=== PATIENT | male | born 1940 | race Caucasian/White ===

== ENCOUNTER → 2018-05-03 03:52 | Outpatient (CLI) | payer BC, SELFPAY ==
--- NOTE | 2018-05-25 12:44 | ZIOP_ITS ---
ZIO PATCH DATE OF DICTATION May 25, [address] 14 days, May 03-2017. Baseline rhythm sinus. Rare single PAC. 13 burst SVT, longest lasting 15.5 seconds, fastest 190 beats per minute. No atrial fibrillation identified. Rare single PVC. Rare couplet. No VT. No bradycardia/block. 1 triggered event during sinus rhythm, 50 beats per minute. SYMPTOMS 1 symptomatic episode (fluttering/racing) noted during sinus rhythm 47 beats per minute. Average heart rate sinus, 61 beats per minute, range 40-114 beats per minute. Gregg Carbajal M.D. JEREMIAS/nasir T 05/25/2018
== END ==
PROVIDERS: PCP Family Medicine; Visit Provider Psychiatry & Neurology Neurology
DX: I49.1 Atrial premature depolarization (principal); I63.411 Cerebral infarction due to embolism of right middle cerebral artery; I47.1 Supraventricular tachycardia
CPT/HCPCS: 93225

== ENCOUNTER 2018-05-05 04:26 | Emergency (ER) | payer BC, SELFPAY ==
[2018-05-05 04:33] VITALS: BP 143/71; PULSE 57; RESP 20; TEMP 36.6; O2SAT 96
--- NOTE | 2018-05-05 04:42 | ED.GENADUL ---
Disposition Clinical Impression: Strain of left wrist Disposition: HOME Condition: Good Instructions: Muscle Strain (ED) Additional Instructions: follow up with your primary care provider within a week you can take 1000mg tylenol every 6 hours for pain. If you need additional pain relief you can take 600mg ibuprofen every 6 hours for pain as needed Medical Decision Making - Radiology Data Radiology results: report reviewed, image reviewed - Medical Decision Making pt here with left wrist pain after doing significant amount of manual labor per pt. He has findings most consistent with a strain, will xray to eval for possible fracture though did not suffer any significant trauma. Has normal pulses and sensation so doubt arterial occlusion or dissection no acute findings on xray. Will place in universal wrist splint and advised f/u with pcp. Still has normal neurovascular exam - Differential Diagnosis strain, sprain, overuse History of Present Illness - General Chief complaint: Orthopedic Stated complaint: LEFT ARM PROB Time Seen by Provider: 05/05/18 04:28 Source: patient Mode of arrival: ambulatory Limitations: no limitations - History of Present Illness Initial comments: 78 yo male with recent cva last month, hld, who comes in with left wrist pain. HE states he did a lot of manual labor yesterday and had wrist pain in the left wrist since 6pm last night. He denies trauma, fevers or rash. He is unable to flex or extend the left wrist due to anterior and posterior wrist pain. HE does have mild swelling of the left wrist without warmth or redness, sensation is intact, 2+ radial and ulnar pulses. No pain in the hand MD Complaint: left wrist pain Onset/Timin -: days(s) Location: upper extremity Radiation: non-radiation Severity scale (1-10): 7 Quality: aching Consistency: constant Improves with: rest Worsens with: movement Associated Symptoms: denies other symptoms Treatments Prior to Arrival: none - Related Data Atorvastatin [Lipitor] 80 mg PO QPM #30 tab 03/29/18 Clopidogrel [Plavix] 75 mg PO DAILY #30 tab 03/29/18 Triamterene/Hydrochlorothiazid [Triamterene-Hctz 37.5-25 mg Tb] 1 tab-cap PO DAILY tab-cap 04/27/18 Allergies Allergy/AdvReac Type Severity Reaction Status Date / Time No Known Allergies Allergy Unverified 05/05/18 04:36 Review of Systems Constitutional: denies: fever Respiratory: denies: shortness of breath Cardiovascular: denies: chest pain Gastrointestinal: denies: abdominal pain, nausea, vomiting Musculoskeletal: denies: back pain Skin: denies: rash Neurological: denies: headache Comment: All other systems reviewed and negative Past Medical History - Past Medical History Medical history: CVA/TIA, hypertension - Social History Alcohol use: occasionally Drug use: none General Exam - General Limitations: no limitations General appearance: alert, in no apparent distress - Head Head exam: Present: atraumatic - Eye Eye exam: Present: normal apperance - ENT ENT exam: Present: mucous membranes moist - Neck Neck exam: Present: normal inspection - Respiratory Respiratory exam: Absent: respiratory distress - Cardiovascular Cardiovascular Exam: Present: regular rate - Extremities Exam Extremities exam: Present: normal capillary refill, other (see hpi). Absent: pedal edema, calf tenderness - Neurological Exam Neurological exam: Present: alert, oriented X3, CN II-XII intact, normal gait. Absent: motor sensory deficit - Psychiatric Psychiatric exam: Present: normal affect - Skin Skin exam: Present: warm Course Vital Signs - 24 hr 05/05/18 04:33 Temperature 97.9 F Pulse 57 L Respiratory 20 Rate Blood Pressure 143/71 Pulse Oximetry 96
--- NOTE | 2018-05-05 04:50 | DI.REPORT_ITS ---
SYMPTOM/DIAGNOSIS: PAIN IN WRIST LEFT WRIST: There is no evidence of an acute fracture or dislocation.
[2018-05-05] MEDS: Acetaminophen 500 MG TAB 1000 MG PO (04:51)
--- NOTE | 2018-05-05 05:58 | DI.VRAD_ITS ---
EXAM: XR Left Wrist Complete, 3 or More Views CLINICAL HISTORY: 78 years old, male; Pain; Wrist; Left; Patient HX: Wrist pain going up arm TECHNIQUE: Frontal, lateral and oblique views of the left wrist. COMPARISON: No relevant prior studies available. FINDINGS: Bones/joints: Unremarkable. No acute fracture. No dislocation. Soft tissues: There is irregularity of the distal ulna with overlying soft tissue swelling, though this appears chronic. No radiopaque foreign body. Vasculature: Moderate vascular calcifications. IMPRESSION: No acute findings. Irregularity of the distal ulna appears chronic. No visualized fractures. Dictated and Authenticated by: Murtaza Hernandez MD. Ordering:OSORIO PALACIO MD
[2018-05-05] MEDS: Ibuprofen 600 MG TAB PO (06:06)
[2018-05-05 06:07] VITALS: BP 143/71; PULSE 57; RESP 20; TEMP 36.6; O2SAT 96
== END 2018-05-05 06:03 | disposition home or self-care (01) ==
PROVIDERS: Emergency Provider Emergency Medicine; PCP Family Medicine
DX: S66.912A Strain of unspecified muscle, fascia and tendon at wrist and hand level, left hand, initial encounter (principal); X50.0XXA Overexertion from strenuous movement or load, initial encounter; I10 Essential (primary) hypertension
CPT/HCPCS: 29125; 99283; 73110; L3908

== ENCOUNTER 2020-07-12 19:27 | Emergency (ER) | payer MEDICARE, SELFPAY ==
--- NOTE | 2020-07-12 19:32 | W.ED.GENAD ---
Discharge Plan Disposition Patient Disposition: HOME Condition: Stable Discharge Details Clinical Impression: Visual disturbance, Acute hyponatremia Primary Care Provider: Bear Chavez ED Provider: Calli Garcia Home Meds and New Rx's Prescriptions: Continued fluorouracil 5 % cream 1 applic TP BID RF: 0 triamterene-hydrochlorothiazid 1 EACH tablet 1 tab-cap PO DAILY RF: 0 atorvastatin [Lipitor] 40 MG tablet 80 mg PO QPM Qty: 30 RF: 0 clopidogrel [Plavix] 75 MG tablet 75 mg PO DAILY Qty: 30 RF: 0 Discharge Instructions Instructions: Hyponatremia (ED) Additional Instructions: Your exam at this time is reassuring as are your labs and imaging. I would like for you to follow-up closely with your network desktop support specialist, please call on Wednesday to schedule follow-up appointment. If you are unable to be seen by them on Wednesday, please reach out to us once again. Your sodium was slightly low here today. Please increase your salt intake slightly. If you develop any fever/chills, eye pain, visual deficit, weakness, sensation changes or other new/worsening symptoms please seek care urgently once again Referrals: Bear Chavez [Primary Care Provider] - Adriano Brown [ NON-[facility] STAFF PHYSICIAN] - Discharge Data Discharge Date/Time-TO BE ENTERED AT DEPARTURE: 07/12/20 23:25 Medical Decision Making Patient is a pleasant 80-year-old male presents today, brought in by son, with chief complaint of glittering arc in the upper lateral right eye x 10 minutes. He reports that he did cover both eyes to be able to further determine the location better describe this. He states that when he cover the left eye is 1 is is most apparent but by covering the right eye it seems completely resolved and he did not see this clearing area. Denies any eye pain. No trauma. No fevers or chills. Denies any weakness, sensory deficit, or persistent symptoms. Denies any recurrence of symptoms. Patient does wear glasses for distance vision and is followed by an network desktop support specialist Luis Antonio. On exam, patient's resting comfortably. He appears nontoxic. Normal neurologic exam. Vision is intact in all underwood. Extraoculars are intact. Visual acuity is 20/50 bilaterally. Pupils are equal round and reactive. Difficult time visualizing entire retina what was visualized appears without acute abnormality. I ultrasound was performed by myself with the assistance of Dr. Ceja, I do not appreciate any evidence of retinal detachment. Patient does have a history of stroke. This is less likely based on the location additional symptom rather than negative symptoms. Labs reviewed without significant abnormality. CT CTA has been obtained. IMPRESSION: 1. No acute intracranial findings on initial unenhanced images. 2. CTA head within normal limits. No large vessel occlusion. IMPRESSION: 1. Mixed plaque within the proximal right internal carotid artery producing 35% stenosis. 2. No arterial occlusion or arterial dissection. Patient had known stenosis. Everything is reported to the to a lesser degree at this time than previously. I did discuss his findings with the patient. I did discuss his case with Dr. Cuello. Again, as this patient was having additive symptoms rather than negative symptoms and the l focal abnormality being in the 1 quadrant 1 eye, has me less concerned for intracranial etiology such as stroke. Symptoms are more consistent with something eye related such as skin lesions noted prior to retinal detachment. As he is not been having any symptoms here, had no negative symptoms and I feel that emergent transfer for ophthalmologic exam is appropriate. Rather, I encourage close follow-up with his network desktop support specialist beginning of next week. He does have an network desktop support specialist that he sees routinely. Strict return precautions were discussed. Patient lives with his , child is close, is able to return with any new or worsening symptoms. All this patient is a concerns were addressed and he is in agreement this plan. HPI General Mode of arrival: ambulatory. Date/Time Provider Initiated Documentation: 07/12/20 19:32. Limitations to Documentation: no limitations. Information obtained by: patient, family (son), RN notes reviewed and old records reviewed. HPI Narrative: Patient is a pleasant 80-year-old male presented to complaint of sparkling arc in the right upper outer quadrant of the right eye. He reports this began present 1 hour prior to arrival. States that this lasted for approximately 10 minutes. Came on after he had been for second computer and in writing a letter. Reports that he was able to cover the left eye and see this more defined. When he covered the right completely subsided. He reports approximately 10 minutes after the onset it spontaneously subsided. He denied any visual changes otherwise. Denies any eye pain. No headache. No weakness. Denies any fevers or chills. No trauma. Has not experienced this historically. Past medical history significant for right carotid stenosis, CVA, hypertension, hyperlipidemia Related Data Home Medications Medication Instructions Recorded Confirmed atorvastatin [Lipitor] 80 mg PO QPM #30 tab 03/29/18 07/12/20 clopidogrel [Plavix] 75 mg PO DAILY #30 tab 03/29/18 07/12/20 triamterene-hydrochlorothiazid 1 tab-cap PO DAILY tab-cap 04/27/18 07/12/20 fluorouracil 5 % topical cream 1 applic TP BID 06/28/18 07/12/20 Previous Rx's Medication Instructions Recorded atorvastatin [Lipitor] 80 mg PO QPM #30 tab 03/29/18 clopidogrel [Plavix] 75 mg PO DAILY #30 tab 03/29/18 Allergies Allergy/AdvReac Type Severity Reaction Status Date / Time No Known Allergies Allergy Unverified 06/28/18 08:24 Review of Systems Constitutional Constitutional: Reports as per HPI, Denies chills, Denies fatigue, Denies fever(s), Denies frequent falls, Denies headache(s), Denies snoring and Denies weakness Eyes Eyes: Reports as per HPI, Denies blurry vision, Denies change in vision, Reports other visual disturbances (Right lateral upper car of glittering light) and Denies photophobia ENT Ears, Nose, Mouth, and Throat: Denies vertigo, Denies headache(s) and Denies neck pain Cardiovascular Cardiovascular: Reports as per HPI, Denies chest pain, Denies lightheadedness, Denies radiating jaw, neck or arm pain, Denies dyspnea and Denies dyspnea on exertion Respiratory Respiratory: Reports as per HPI, Denies chest congestion, Denies cough, Denies dyspnea, Denies dyspnea on exertion, Denies snoring, Denies stridor and Denies wheezing Gastrointestinal Gastrointestinal: Reports as per HPI, Denies abdominal pain, Denies change in bowel habits, Denies nausea and Denies vomiting Genitourinary Genitourinary: Reports system reviewed and no additional complaints, except as documented (denies change in urinary habits) Musculoskeletal Musculoskeletal: Reports as per HPI, Denies back pain, Denies myalgias, Denies muscle cramps, Denies neck pain and Denies numbness Integumentary/Breasts Skin/Breast: Reports as per HPI and Denies rash Neurologic Neurologic: Reports as per HPI, Denies abnormal movements, Denies abnormal speech, Denies behavioral changes, Denies confusion, Denies vertigo, Denies frequent falls, Denies headache(s), Denies localized weakness, Denies numbness, Denies sensory deficit and Denies weakness Psychiatric Psychiatric: Denies behavioral changes and Denies confusion Endocrine Endocrine: Denies fatigue Allergic/Immunologic Allergic/Immunologic: Denies wheezing [facility] Medical History (Updated 07/12/20 @ 23:17 by FERNANDO Santana) Carotid stenosis, right (04/27/18) Cerebrovascular accident (CVA) due to embolism of right middle cerebral artery (04/27/18) Hyperlipidemia Hypertension Pre-diabetes Surgical History History of tonsillectomy Inguinal hernia of left side without obstruction or gangrene Family History Father Alcohol abuse Stroke Social History Smoking/Tobacco Use Status: Never Alcohol Intake: current Alcohol Intake frequency: a few times a month Substance use type: does not use Housing: house Number of Children: 2 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 Do you feel safe in your relationship?: Yes Exam Const General: cooperative, healthy appearing, uncomfortable, no acute distress, well developed and well groomed Nutritional Appearance: average body habitus and well nourished Orientation: alert, awake and oriented x3 HENMT Head: normal to inspection, no palpable skull fracture, normocephalic and atraumatic Ears: hearing grossly normal bilaterally, external ears normal and TM's normal bilaterally General nose exam: external nose normal Mouth: oral mucosae normal and moist mucous membranes Throat: posterior oropharynx normal Eyes General: appearance normal, both eyes and all related structures Alignment and Position: alignment normal Periorbital: periorbital findings normal Eyelids: eyelids normal Sclera: sclerae normal Cornea: corneas normal Pupils: PERRL EOM: EOM intact bilaterally Neck Neck: normal visual inspection, full ROM, no lymphadenopathy and no meningeal signs Resp Effort & Inspection: normal respiratory effort, able to speak in complete sentences and no respiratory distress Auscultation: clear to auscultation bilaterally, no rales, no rhonchi and no wheezes Cardio Rate: regular rate Rhythm: regular rhythm Heart Sounds: S1 normal and S2 normal GI Inspection: normal to inspection and non-distended Palpation: soft, no hepatosplenomegaly, not firm, no guarding, not rigid and nontender Percussion: normal to percussion Auscultation: normal bowel sounds Back/Spine/Pelvis Cervical Spine: normal cervical lordosis and cervical ROM normal Skin General skin exam: no rashes or lesions noted Neuro General: patient alert, patient awake and patient oriented x3 Cranial Nerves: CN's II-XI intact bilaterally Cognition: normal cognition Speech: speech normal Gait: normal gait Motor: muscle tone normal throughout, strength 5/5 throughout, no pronator drift, no movement abnormalities noted and no fasciculations Sensory Exam: no sensory deficits noted Coordination: [id number] test normal and [id number] test normal Extrem General: normal to inspection, capillary refill normal, no pedal edema and no calf tenderness Psych Appearance: grossly normal and well kempt Mental Status: mental status grossly normal Speech and Movement: speech and movement normal
[2020-07-12 19:34] VITALS: BP 154/75; PULSE 51; RESP 20; TEMP 36.5; O2SAT 98
--- NOTE | 2020-07-12 20:00 | DI.CT_ITS ---
EXAM: CT BRAIN NECK CTA CLINICAL HISTORY: visual changes, right upper outer field. TECHNIQUE: Imaging Protocol: Axial CT angiography was performed with multi-slice acquisition and mu lti-planar and/or 3D reconstructions. CONTRAST MATERIAL: Intravenous: Omnipaque 350 Contrast volume:85 COMPARISON: CT CTA BRAIN AND NECK from 03/27/2018 FINDINGS: CT Head W/O: Ventricles and Extra axial spaces: Normal in size and morphology for the patient's age. Hemorrhage: None. Cerebral parenchyma: Mild patchy white matter changes of microvascular disease. No acute infarct is visible. Midline shift: None. Brainstem/Cerebellum: Normal. Calvarium: Normal. Visualized Paranasal sinuses/Mastoids: Clear. Soft Tissues: Unremarkable. CTA Brain W: Internal Carotid Arteries: Petrous: Normal. Cavernous: Normal. Cerebral: Normal. Middle Cerebral Arteries: Right: No aneurysm, occlusion or significant stenosis. Left: No aneurysm, occlusion or significant stenosis. Anterior Cerebral Arteries: Right: No aneurysm, occlusion or significant stenosis. Left: No aneurysm, occlusion or significant stenosis. Posterior cerebral Arteries: Right: No aneurysm, occlusion or significant stenosis. Left: No aneurysm, occlusion or significant stenosis. Vertebral Arteries: Right: No aneurysm, occlusion or significant stenosis. Left: No aneurysm, occlusion or significant stenosis. Basilar Artery: No aneurysm, occlusion or significant stenosis. CTA Neck W: Common Carotid: Right: Calcific plaque is noted in the common carotid bulb. No significant stenosis. Left: Calcific plaque is noted in the common carotid bulb. No significant stenosis. External Carotid: Right: No aneurysm, occlusion or significant stenosis. Left: No aneurysm, occlusion or significant stenosis. Internal Carotid: Right: Mild amount of mixed calcified and noncalcified plaque in the proximal right internal carotid artery producing mild stenosis. No aneurysm, occlusion. Left: Minimal calcific plaque. No aneurysm, occlusion or significant stenosis. Vertebral Artery: Right: No aneurysm, occlusion or significant stenosis. Left: No aneurysm, occlusion or significant stenosis. Lung Apices: Normal. Bones: Degenerative disc changes. Soft Tissues: Normal. IMPRESSION: 1. Normal CTA examination of the [place]. 2. Unremarkable noncontrast CT Head. 3. Mild plaque in the common carotid bulbs and proximal internal and carotid arteries. No significan t stenosis. RADIATION DOSE DELIVERED: 1,335.35mGy.cm Total DLP DATA REPOSITORY: All CT scans at this facility are submitted to the National Radiology Data Registry (NRDR) Dose Index Registry (DIR) with the [employer] (ACR). RADIATION OPTIMIZATION: All CT scans at this facility use at least one of these dose optimization te chniques: automated exposure control; mA and/or kV adjustment per patient size (includes targeted exa ms where dose is matched to clinical indication); or iterative reconstruction.
--- NOTE | 2020-07-12 20:15 | RT.EKG_ITS ---
APPROVED REPORT Exam: Resting ECG Patient Location: E HR:49 bpm ECG Measurements Heart Rate 49 AXIS AR 201 P 73 QRSd 93 QRS 49 QT 455 T 268 QTc 410 Conclusion Sinus bradycardia...rate< 60 Borderline T abnormalities, diffuse leads...T flat/neg I have reviewed and interpreted ECG and agree with software generated interpretation. No STEMI
[2020-07-12] MEDS: Lactated Ringers 1,000 ML 500 ML IV (20:40)
[2020-07-12 21:17] LABS: Abs Immature Grans 0.03 10^3/uL (0.0-0.06); Absolute Basophil Count 0.06 10^3/uL (0.0-0.2); Absolute Eosinophil Count 0.26 10^3/uL (0.0-0.7); Absolute Lymphocyte Count 1.65 10^3/uL (1.2-3.4); Absolute Monocyte Count 0.82 10^3/uL (0.1-0.8); Absolute Neutrophil Count 4.52 10^3/uL (1.2-6.7); Basophils % 0.8; Eosinophils % 3.5; HCT 44.9 % (40.0-50.0); Immature Grans % 0.4; Lymphocytes % 22.5; MCHC 33.4 % (32.0-36.0); MCV 89.8 fL (80-95); MPV 10.5 fL (8.0-11.0); Monocytes % 11.2; Neutrophils % 61.6; Nucleated RBC 0 %; Platelet Count 187 10^3/uL (130-400); RDW 13.3 % (11.8-14.1); WBC 7.34 10^3/uL (4.4-10.8)
[2020-07-12 21:30] LABS: PTT Activated 26.1 sec (21.0-31.4); Prothrombin Time 10.5 sec (9.3-11.0)
[2020-07-12 21:31] LABS: ALT 34 U/L (16-63); AST 31 U/L (15-37); Alkaline Phosphatase 101 U/L (46-116); Anion Gap 3.6 mmol/L (3-11); BUN 27 mg/dL (7-18); Bilirubin, Total 0.5 mg/dL (0.2-1.0); CO2 28.4 mmol/L (21.0-32.0); CREATININE 0.87 mg/dL (0.70-1.30); Chloride 99 mmol/L (98-107); Glucose 88 mg/dL (74-106); Potassium 3.6 mmol/L (3.5-5.1); Sodium 131 mmol/L (136-145); Total Protein 7.2 g/dL (6.4-8.2)
[2020-07-12] MEDS: Normal Saline Flush 10 ML SYR IVP (21:42)
[2020-07-12] MEDS: Normal Saline - Diluent 50 ML VIAL IV (21:43)
[2020-07-12] MEDS: Omnipaque 350 MG/ML 100 ML BTL IJ (21:43)
--- NOTE | 2020-07-12 22:56 | DI.VRAD_ITS ---
PROCEDURE INFORMATION: Exam: CT Angiography Head With Contrast Exam date and time: 07/12/2020 9:58 PM Age: 80 years old Clinical indication: Visual changes, right upper outter field TECHNIQUE: Imaging protocol: Computed tomography angiography of the head with intravenous contrast. 3D rendering (Not supervised by radiologist): MIP and/or 3D reconstructed images were created by the technologist. Contrast material: OMNIPAQUE 350; Contrast volume: 85 ml; Contrast route: INTRAVENOUS (IV); COMPARISON: CTA BRAIN AND NECK 03/27/2018 2:42 PM FINDINGS: ANTERIOR CIRCULATION: Right internal carotid artery: Unremarkable. Intracranial segment is patent with no significant stenosis. No aneurysm. Right middle cerebral artery: Unremarkable. No occlusion or significant stenosis. No aneurysm. Right anterior cerebral artery: Unremarkable. No occlusion or significant stenosis. No aneurysm. Left internal carotid artery: Arterial calcification. Left middle cerebral artery: Unremarkable. No occlusion or significant stenosis. No aneurysm. Left anterior cerebral artery: Unremarkable. No occlusion or significant stenosis. No aneurysm. POSTERIOR CIRCULATION: Right vertebral artery: Unremarkable. No occlusion or significant stenosis. No aneurysm. Left vertebral artery: Unremarkable. No occlusion or significant stenosis. No aneurysm. Basilar artery: Unremarkable. No occlusion or significant stenosis. No aneurysm. Right posterior cerebral artery: Unremarkable. No occlusion or significant stenosis. No aneurysm. Left posterior cerebral artery: origin of the left posterior cerebral artery. No occlusion or significant stenosis. No aneurysm. Brain: A few scattered small areas of decreased density in the periventricular white matter which are likely secondary to chronic ischemia from microvascular change. No acute intracranial hemorrhage. Diffuse cerebral atrophy. Cerebral ventricles: Ventricular prominence in this patient with diffuse cerebral atrophy. Normal benign rosalio cisterna magna. Mastoid air cells: No mastoiditis. Bones/joints: Unremarkable. No acute fracture. Soft tissues: No significant disease of the paranasal sinuses. IMPRESSION: 1. No acute intracranial findings on initial unenhanced images. 2. CTA head within normal limits. No large vessel occlusion. PROCEDURE INFORMATION: Exam: CT Angiography Neck With Contrast Exam date and time: 07/12/2020 9:58 PM Age: 80 years old Clinical indication: Visual changes, right upper outter field TECHNIQUE: Imaging protocol: Computed tomography angiography of the neck with intravenous contrast. 3D rendering (Not supervised by radiologist): MIP and/or 3D reconstructed images were created by the technologist. Contrast material: OMNIPAQUE 350; Contrast volume: 85 ml; Contrast route: INTRAVENOUS (IV); COMPARISON: CTA BRAIN AND NECK 03/27/2018 2:42 PM FINDINGS: Right common carotid artery: Calcific plaque within the right carotid bulb region. No stenosis. No dissection or occlusion. Right internal carotid artery: Mixed plaque within the proximal right internal carotid artery producing 35% stenosis. Right external carotid artery: No occlusion or stenosis of the origin. Right vertebral artery: No stenosis. No dissection or occlusion. Left common carotid artery: Calcific plaque within the left carotid bulb region. No stenosis. No dissection or occlusion. Left internal carotid artery: Small amount of calcific plaque within the proximal left internal carotid artery without significant stenosis. Left external carotid artery: No occlusion or stenosis of the origin. Left vertebral artery: No stenosis. No dissection or occlusion. Bones/joints: Cervical spine degenerative changes. Soft tissues: Normal. No significant soft tissue swelling. IMPRESSION: 1. Mixed plaque within the proximal right internal carotid artery producing 35% stenosis. 2. No arterial occlusion or arterial dissection. REFERENCES: NASCET CRITERIA. The degree of internal carotid artery stenosis is based on NASCET criteria. Normal is no stenosis. Mild is less than 50% stenosis. Moderate is 50-69% stenosis. Severe is 70% to 99% stenosis. Total occlusion is no detectable patent lumen. Dictated and Authenticated by: Isai Resendiz MD. Ordering:VIBHA Mccurdy MD
--- NOTE | 2020-07-12 23:34 | NUR.NOTE ---
Patient to be followed up with by Care management Wednesday to make sure an appointment is set up with his rejogger. referral faxed to care management @ [phone] 07/12/2020 libl Nursing Note:
== END 2020-07-12 23:25 | disposition home or self-care (01) ==
PROVIDERS: Emergency Provider Physician Assistant; PCP Family Medicine
DX: H53.451 Other localized visual field defect, right eye (principal); E87.1 Hypo-osmolality and hyponatremia; I10 Essential (primary) hypertension
CPT/HCPCS: 70496; 70498; 80053; 93005; 96360; 96361; 99285; 85025; 85610; 85730; 93010; 99284; J3490

== ENCOUNTER 2021-06-06 11:17 | Emergency (ER) | payer MEDICARE, SELFPAY ==
[2021-06-06] VITALS (14 sets, daily range): BP systolic 129–164; BP diastolic 71–121; PULSE 45–51; RESP 10–21; TEMP 36.4–36.5; O2SAT 96–99
--- NOTE | 2021-06-06 11:15 | DI.RAD_ITS ---
Exam(s) XR CHEST 2V PA LATERAL EXAM: XR CHEST 2V PA LATERAL CLINICAL HISTORY: CP TECHNIQUE: 2D digital imaging was performed. COMPARISON: No exams were available for comparison FINDINGS: MEDIASTINUM: Normal. HEART: Normal. PULMONARY VASCULATURE: Normal. LUNGS: Clear. PLEURAL SPACE: No pleural effusion or pneumothorax. BONE:Unremarkable for age. IMPRESSION: No acute abnormality. DATA REPOSITORY: RADIATION DOSE DELIVERED:
--- NOTE | 2021-06-06 11:15 | RT.EKG_ITS ---
APPROVED REPORT Exam: Resting ECG Reason for Exam: CP Patient Location: E HR:48 bpm ECG Measurements Heart Rate 48 AXIS MA 192 P 74 QRSd 96 QRS 59 QT 472 T 77 QTc 421 Conclusion Sinus bradycardia Nonspecific t wave changes not significantly changed vs 07/12/20
--- NOTE | 2021-06-06 11:33 | W.ED.GENAD ---
Discharge Plan Disposition Patient Disposition: HOME Condition: Stable Discharge Details Clinical Impression: Chest pain Primary Care Provider: Bear Chavez ED Provider: Calli Garcia Home Meds and New Rx's Prescriptions: New omeprazole 20 mg capsule,delayed release(DR/EC) 20 mg PO DAILY Qty: 20 RF: 0 Continued triamterene-hydrochlorothiazid 1 EACH tablet 1 tab-cap PO DAILY RF: 0 atorvastatin [Lipitor] 40 MG tablet 80 mg PO QPM Qty: 30 RF: 0 clopidogrel [Plavix] 75 MG tablet 75 mg PO DAILY Qty: 30 RF: 0 Discharge Instructions Instructions: Chest Pain (ED) Additional Instructions: Your imaging and labs are reassuring here today. Your exam and history is most consistent with esophageal source such as acid reflux. As discussed, please try to reduce coffee intake as well as other acidic foods. Encourage water intake. May use omeprazole as prescribed. Please follow-up with your primary care in the next 1 to 2 weeks for reevaluation. If you develop exertional chest pain, shortness of breath, difficulty breathing or other new/worsening please seek care urgently once again Referrals: Bear Chavez [Primary Care Provider] - Discharge Data Discharge Date/Time-TO BE ENTERED AT DEPARTURE: 06/06/21 13:32 Medical Decision Making Patient is a pleasant 81-year-old male presenting today with chief complaint of chest discomfort. He reports that chest pain has been present x3 days. Has not noted any exacerbating factors. It is not exertional in length. However, he does report that it does feel slightly improved when drinking cold water. Denies worsening with eating. No change in appetite. Denies any shortness of breath, diaphoresis. No recent travel. Denies any respiratory symptoms. Describes the discomfort as a a fullness. He denies any history of acid reflux. 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 On exam, patient appears nontoxic. Vital signs are stable. Pulse is typically in the 40s and 50s. Lungs are clear, normal cardiac exam, abdomen benign. Considered ACS. However, as there is no exertional component, I do find this less likely. Will obtain EKG and troponin. History exam is not consistent with pulmonary embolism. No radiation of pain or findings to suggest dissection. Also consider potential esophageal source particularly as this is improved with cold water. Will give GI cocktail. Will obtain chest x-ray and baseline labs. Discussed this plan with the patient his agreement. Labs reviewed. No leukocytosis. Stable H&H. No abnormalities on CMP. Troponin within normal limits. Chest x-ray reviewed by radiologist: FINDINGS: MEDIASTINUM: Normal. HEART: Normal. PULMONARY VASCULATURE: Normal. LUNGS: Clear. PLEURAL SPACE: No pleural effusion or pneumothorax. BONE:Unremarkable for age. IMPRESSION: No acute abnormality. Discussed this finding with the patient. After GI cocktail, symptoms are completely resolved. is now at bedside and adds that he has been burping frequently which is atypical. He has had an increase in coffee intake as well as other acidic foods. I discussed with him that this is likely the source of his discomfort. He will cut back on his coffee. We did discuss beginning omeprazole. She advised she would like to try this with dietary restrictions but would consider medications if this is unsuccessful. Will scribed omeprazole in the event that he would like to begin this. Strict return precautions were discussed. I did encourage that he follow-up with primary care in the next 1 to 2 weeks for reevaluation. Also parents were addressed and he is in agreement this plan. HPI General Mode of arrival: ambulatory. Date/Time Provider Initiated Documentation: 06/06/21 11:18. Limitations to Documentation: no limitations. Information obtained by: patient and RN notes reviewed. History of Present Illness 81 year old M presents to the emergency department with the chief complaint of chest pain, described as mild, with intensity rated at 1. Quality is described as other (fullness), and is localized to the chest. Patient reports no radiation. Patient started experiencing this day(s) (3) and it has been constant. other things that improve symptom(s), (drinking cold water) No exacerbating factors reported . Patient notes no other symptoms.. Patient did receive the following treatments prior to arrival, none Related Data Home Medications Medication Instructions Recorded Confirmed atorvastatin [Lipitor] 80 mg PO QPM #30 tab 03/29/18 06/06/21 clopidogrel [Plavix] 75 mg PO DAILY #30 tab 03/29/18 06/06/21 triamterene-hydrochlorothiazid 1 tab-cap PO DAILY tab-cap 04/27/18 06/06/21 omeprazole 20 mg PO DAILY #20 cap 06/06/21 Previous Rx's Medication Instructions Recorded atorvastatin [Lipitor] 80 mg PO QPM #30 tab 03/29/18 clopidogrel [Plavix] 75 mg PO DAILY #30 tab 03/29/18 omeprazole 20 mg PO DAILY #20 cap 06/06/21 Allergies Allergy/AdvReac Type Severity Reaction Status Date / Time No Known Allergies Allergy Unverified 06/06/21 11:28 General Stated Complaint: Chest Pain ARELIS: 3 Review of Systems Constitutional Constitutional: Reports as per HPI, Denies chills, Denies fever(s), Denies headache(s), Denies lethargy and Denies poor appetite ENT Ears, Nose, Mouth, and Throat: Denies dizziness and Denies headache(s) Cardiovascular Cardiovascular: Reports as per HPI, Reports chest pain, Denies leg edema, Denies radiating jaw, neck or arm pain, Denies palpitations, Denies dyspnea and Denies dyspnea on exertion Respiratory Respiratory: Reports as per HPI, Denies chest congestion, Denies cough, Denies pain on inspiration, Denies pain with cough, Denies dyspnea, Denies dyspnea on exertion and Denies wheezing Gastrointestinal Gastrointestinal: Reports as per HPI, Denies abdominal pain, Denies diarrhea, Denies nausea and Denies vomiting Musculoskeletal Musculoskeletal: Reports as per HPI and Denies back pain Integumentary/Breasts Skin/Breast: Reports as per HPI and Denies rash Neurologic Neurologic: Reports as per HPI, Denies dizziness and Denies headache(s) Endocrine Endocrine: Denies palpitations Allergic/Immunologic Allergic/Immunologic: Denies wheezing [facility] Medical History (Updated 06/06/21 @ 13:16 by FERNANDO Santana) Carotid stenosis, right (04/27/18) Cerebrovascular accident (CVA) due to embolism of right middle cerebral artery (04/27/18) Hyperlipidemia Hypertension Pre-diabetes Surgical History History of tonsillectomy Inguinal hernia of left side without obstruction or gangrene Family History Father Alcohol abuse Stroke Social History Smoking/Tobacco Use Status: Never Smoking risk assessment performed?: Yes Alcohol Intake: current Alcohol Intake frequency: a few times a month Substance use type: does not use Housing: house Number of Children: 2 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 Do you feel safe in your relationship?: Yes Exam Const General: cooperative, healthy appearing, comfortable, no acute distress and well developed Nutritional Appearance: average body habitus and well nourished Orientation: alert, awake and oriented x3 HENMT Head: normal to inspection Ears: hearing grossly normal bilaterally Mouth: moist mucous membranes Chest Chest: normal inspection of the chest, normal palpation of entire chest wall and no crepitus Resp Effort & Inspection: normal respiratory effort, able to speak in complete sentences and no respiratory distress Auscultation: clear to auscultation bilaterally, no rales, no rhonchi and no wheezes Cardio Rate: regular rate Rhythm: regular rhythm Heart Sounds: S1 normal and S2 normal GI Inspection: normal to inspection, no edema and non-distended Palpation: soft, no hepatosplenomegaly, not firm, no guarding, not rigid and nontender Auscultation: normal bowel sounds Skin General skin exam: no rashes or lesions noted Trauma: no lacerations or abrasions Neuro General: patient alert, patient awake and patient oriented x3 Cognition: normal cognition Speech: speech normal Gait: normal gait Extrem General: normal to inspection, capillary refill normal, no pedal edema, no calf tenderness and normal gait Psych Appearance: grossly normal and well kempt Mental Status: mental status grossly normal Speech and Movement: speech and movement normal Course Vital Signs Vital signs: Vital Signs Temperature 36.4 C L 06/06/21 11:24 Pulse 50 L 06/06/21 11:24 Respiratory Rate 14 06/06/21 11:24 Blood Pressure 158/71 H 06/06/21 11:24 Pulse Oximetry 97 06/06/21 11:24 Temperature 36.4 C L 06/06/21 11:24 Temperature Source Skin 06/06/21 11:24 Pulse 50 L 06/06/21 11:24 Respiratory Rate 14 06/06/21 11:24 Respiratory Effort 06/06/21 11:29 Blood Pressure 158/71 H 06/06/21 11:24 Pulse Oximetry 97 06/06/21 11:24 Oxygen Delivery Method Room Air 06/06/21 11:24 Oxygen Flow Rate 0 06/06/21 11:24 Pain Level 1 06/06/21 11:24
[2021-06-06 11:47] LABS: Abs Immature Grans 0.02 10^3/uL (0.0-0.06); Absolute Basophil Count 0.04 10^3/uL (0.0-0.2); Absolute Eosinophil Count 0.27 10^3/uL (0.0-0.7); Absolute Lymphocyte Count 1.28 10^3/uL (1.2-3.4); Absolute Monocyte Count 0.74 10^3/uL (0.1-0.8); Absolute Neutrophil Count 4.36 10^3/uL (1.2-6.7); Basophils % 0.6; HCT 45.2 % (40.0-50.0); Immature Grans % 0.3; Lymphocytes % 19.1; MCH 29.8 pg (27.0-33.0); MCHC 33.2 % (32.0-36.0); MCV 89.7 fL (80-95); MPV 10.9 fL (8.0-11.0); Nucleated RBC 0 %; Platelet Count 159 10^3/uL (130-400); RBC 5.04 10^6/uL (4.36-5.78); RDW 13.2 % (11.8-14.1); RDW-SD 43.7 fL; WBC 6.71 10^3/uL (4.4-10.8)
[2021-06-06 11:52] LABS: Magnesium 2.1 mg/dL (1.8-2.4)
[2021-06-06 11:58] LABS: ALT 32 U/L (16-63); AST 23 U/L (15-37); Albumin 3.9 g/dL (3.4-5.0); Alkaline Phosphatase 105 U/L (46-116); Anion Gap 3.1 mmol/L (3-11); BUN 20 mg/dL (7-18); Bilirubin, Total 0.5 mg/dL (0.2-1.0); CO2 33.9 mmol/L (21.0-32.0); Calcium 9.1 mg/dL (8.5-10.1); Chloride 101 mmol/L (98-107); Glucose 90 mg/dL (74-106); Potassium 3.9 mmol/L (3.5-5.1); Sodium 138 mmol/L (136-145); Total Protein 7.5 g/dL (6.4-8.2); Troponin I < 0.05 ng/mL (<0.06)
== END 2021-06-06 13:32 | disposition home or self-care (01) ==
PROVIDERS: Emergency Provider Physician Assistant; PCP Family Medicine
DX: R07.9 Chest pain, unspecified (principal)
CPT/HCPCS: 36415; 80053; 85652; 93005; 99284; 71046; 83735; 84484; 85025; 86140; 93010; 99283

== ENCOUNTER → 2023-10-05 01:57 | Outpatient (CLI) | payer MEDICARE, SELFPAY ==
--- NOTE | 2023-10-05 | DI.CT_ITS ---
Exam(s) CT ABDOMEN PELVIS WO EXAM: CT ABDOMEN PELVIS WO CLINICAL HISTORY: LLQ PAIN R10.32 ? HERNIA wo scan due to radiologist (lab values). TECHNIQUE: Imaging Protocol: Axial computed tomography images with coronal and sagittal reformatted images were created and reviewed CONTRAST MATERIAL: Intravenous: none. Abnormal blood work did not permit contrast injection Oral: Yes. Oral contrast was administered for bowel opacification. COMPARISON: CT CT BRAIN NECK CTA from 07/12/2020 FINDINGS: VISUALIZED LUNG BASES: No pleural effusions. Mild infiltrate noted in the medial basal segment of th e right lower lobe. Moderate size hiatal hernia noted. ABDOMEN: There is no ascites. LIVER: There are no obvious focal hepatic lesions evident of this noninfused study. GALLBLADDER/BILIARY: No obvious gallbladder pathology. CBD is not dilated. PANCREAS: The pancreatic head and uncinate process appear hypodensity compared to the remainder of th e gland. However, there does not appear to be in obvious mass at this level and the uncinate process retains normal triangular configuration. The pancreatic duct is not dilated. There are no pancreat ic parenchymal calcifications. No regional lymphadenopathy evident. Spleen size is normal. SPLEEN: Spleen is not enlarged. No obvious intrasplenic lesions. ADRENALS: There are no significant adrenal masses. KIDNEYS:There is severe bilateral hydronephrosis and hydroureter. The ureters are dilated up to almo st 2 cm size. There are no radiopaque calculi seen at the lower ureters nor within the nondistended urinary bladder and there is no obvious bladder mass evident on this non few study to explain these s ignificantly dilated bilateral renal collecting systems. Prostate gland is enlarged and indents the bladder base. There is a large cyst in the left kidney which measures 8 x 5 cm, extending from the p elvic level to the outer cortical surface. No solid renal masses. No radiopaque calculi evident in the kidneys and ureters.. ABDOMINAL AORTA: Abdominal aorta is not enlarged. LYMPH NODES: There is no retroperitoneal nor paraaortic adenopathy. ABDOMINAL WALL: No evidence of significant anterior abdominal wall nor inguinal hernia. GI: There is no evidence of bowel obstruction, free air, nor abscess. PELVIS: LYMPH NODES: There is no intrapelvic nor inguinal adenopathy. GI: No evidence of appendicitis.There is diverticulosis of the colon at and distal to the splenic fle xure. The entire left side of the colon is involved with diverticuli including the sigmoid but there is no evidence of obvious acute diverticulitis. No free fluid. No free air. URINARY BLADDER: As above. Moderate prostatic enlargement but doubtful enough to be causing the yennifer rely dilated bilateral ureters here. REPRODUCTIVE: Mild moderate prostatic enlargement. OSSEOUS: No fractures. No significant osseous lesions. IMPRESSION: 1. Main finding here is severe bilateral hydronephrosis and hydroureter without radiopaque calculi in the kidneys and ureters nor within the urinary bladder and without an obvious bladder mass evident o n this non contrast infused study. There is moderate prostatic enlargement but doubtful enough to be causing the severe dilatation of the bilateral collecting systems evident here. Urology consultatio n recommended for cystoscopy and study of the radial vesicle junction levels to rule out sessile type uroepithelial bladder or distal bilateral ureter malignancies. 2. Somewhat hypodense pancreatic head and uncinate process when compared to the remainder of the panc reas, possibly within normal limits but difficult to evaluate accurately without IV contrast. The CB D is not dilated and the uncinate process retains normal triangular configuration and there are no hopkins rrounding enlarged lymph nodes. Recommend further study with MRI which would add specificity, despit e not being able to be injected with MRI contrast because the patient has significantly diminished re nal status due to the above described bilateral great urinary tract obstructions. 3. Other findings as above. RADIATION DOSE DELIVERED: 1,168.16mGy.cm Total DLP DATA REPOSITORY: All CT scans at this facility are submitted to the National Radiology Data Registry (NRDR) Dose Index Registry (DIR) with the [employer] (A[employer]). RADIATION OPTIMIZATION: All CT scans at this facility use at least one of these dose optimization te chniques: automated exposure control; mA and/or kV adjustment per patient size (includes targeted exa ms where dose is matched to clinical indication); or iterative reconstruction.
[2023-10-05 13:22] LABS: CREATININE 2.3 mg/dL (0.70-1.30); Estimated GFR 27.49 (mL/min/1.73m2)
== END ==
PROVIDERS: PCP Family Medicine; Visit Provider Physician Assistant Medical
DX: R10.32 Left lower quadrant pain (principal)
CPT/HCPCS: 36415; 74176; 82565

== ENCOUNTER 2023-10-11 16:29 | Outpatient (CLI) | payer MEDICARE, SELFPAY ==
[2023-10-11 15:21] LABS: CREATININE 2.4 mg/dL (0.70-1.30); Estimated GFR 26.12 (mL/min/1.73m2)
[2023-10-11 23:31] LABS: PSA, Diagnostic 10.6 ng/mL (<=6.5)
== END 2023-10-11 16:30 | disposition home or self-care (01) ==
LOC: LBO 16:29
PROVIDERS: PCP Family Medicine; Visit Provider Urology
DX: N42.9 Disorder of prostate, unspecified (principal); N13.30 Unspecified hydronephrosis
CPT/HCPCS: 36415; 76775; 99215; 82565; 84153

== ENCOUNTER 2023-10-25 08:07 | Day surgery (SDC) | payer MEDICARE, SELFPAY ==
[2023-10-25] VITALS (14 sets, daily range): BP systolic 75–170; BP diastolic 46–77; PULSE 36–62; RESP 16–18; TEMP 36.1–36.5; O2SAT 96–100; BMI 26.9
--- NOTE | 2023-10-25 09:00 | DI.RAD_ITS ---
Exam(s) XR RETROGRADE IN OR EXAM: XR RETROGRADE IN OR CLINICAL HISTORY: BILATERAL HYDRONEPHROSIS TECHNIQUE: 2D and realtime digital imaging was performed. CONTRAST MATERIAL: Refer to procedure report. COMPARISON: No exams were available for comparison FINDINGS: Fluoroscopy was provided for Dr. Jasmine during the performance of a retrograde evaluation of the radha l collecting system. Please refer to the procedure report for complete details. Ka,r=11.9 mGy IMPRESSION: RADIATION DOSE DELIVERED:
[2023-10-25] MEDS: Lactated Ringers 1,000 ML 80 ML IV (09:10)
--- NOTE | 2023-10-25 09:56 | HPE_ITS ---
Date of service: 10/25/23 Time of Service: 09:56 Assessment and Plan Assessment and plan (1) Hydronephrosis: Status: Acute Assessment and plan: We will plan to do a cystoscopy and retrograde pyelogram to r/o bilateral ureteral obstructions. History of Present Illness History of Present Illness Chief Complaint: Bilateral hydronephrosis Narrative: This is an 83-year-old gentleman who is referred by the providers at [facility]. This is the patient's first visit with urology. He presented to the [facility] with complaints of left groin discomfort. He was actually concerned that he might have a recurrent hernia. He tells me that the discomfort was not there all the time but seem to get worse with increased activity or lifting. He seemed to get better when he took Tylenol. He was not having any dysuria or gross hematuria. He has never had a urinary tract infection. He has never developed urinary retention. He has no previous history of urologic instrumentation or surgery. He does admit to urinary frequency and urgency. He has not developed urgency incontinence. He gets up an average of every 2-3 hours to urinate at night. As part of his evaluation, a CT of the abdomen and pelvis was obtained. The patient had bilateral hydronephrosis with dilated ureters extending all the way down to the bladder. No distal ureteral stones were identified. His serum creatinine was elevated (2.3 milligrams per deciliter) compared to his level fr om 2020 (1.0 mg/dL). He has no diagnosis of prostate cancer. We obtained a PSA level and it was slightly elevated at 10.6 ng/mL. We have no prior PSA for comparison. Review of Systems Narrative: No fevers or chills No vision change or dysphasia No diabetes or thyroid dysfunction Cough/mucus production. No hemoptysis No chest pain or palpitations No hepatitis, ulcers, jaundice, diarrhea or constipation Hx stroke. No seizures or peripheral neuropathy No bleeding disorders or anemia No gout PFSH All Active Problems Hydronephrosis (Acute) Sensorineural hearing loss (Acute) Abnormal auditory perception of both ears (Acute) Epistaxis (Acute) Chronic frontal sinusitis (Acute) Maxillary sinusitis, chronic (Acute) Cyst of ear canal (Acute ~09/2023) Impacted cerumen, bilateral (Acute) Chest pain (Acute) Pre-diabetes (Chronic) Hyperlipidemia (Chronic) Hypertension (Chronic) Carotid stenosis, right (Chronic 04/27/18) Surgical History Inguinal hernia of left side without obstruction or gangrene History of tonsillectomy Family History Father Alcohol abuse Stroke Social History Smoking/Tobacco Use Status: Never Smoking risk assessment performed?: Yes Alcohol Intake: current Alcohol Intake frequency: holidays/special occasions only Substance use type: does not use Details: alcohol: jaleel Household members: none Housing: house Number of Children: 2 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 What is your relationship status?: Panel score (0-1 are the most socially isolated patients): 0 Do you feel safe in your relationship?: Yes Additional Social history: lives alone will go home with Dtr and BAKARI (who is O YN) Meds Allergies and Home Medications Allergies Allergy/AdvReac Type Severity Reaction Status Date / Time No Known Allergies Allergy Unverified 10/25/23 08:41 Home Medications Medication Instructions Recorded Confirmed Type clopidogrel 75 mg tablet (Plavix) 75 mg PO DAILY #30 tabs 03/29/18 10/25/23 Rx triamterene 37.5 1 tab-cap PO DAILY 04/27/18 10/25/23 History mg-hydrochlorothiazide 25 mg tablet atorvastatin 80 mg tablet 80 mg PO DAILY 02/25/22 10/25/23 History triamcinolone acetonide 0.1 % 1 applic topical DAILY 02/25/22 10/25/23 History topical cream Exam Const General: cooperative Neck Neck: supple Resp Effort & Inspection: normal respiratory effort Auscultation: clear to auscultation bilaterally Cardio Rate: regular rate Rhythm: regular rhythm GI Palpation: soft and no masses Neuro General: patient alert, patient awake and patient oriented x3 Results Last Vital Signs Temp 36.5 C 10/25/23 08:49 Pulse 56 L 10/25/23 08:49 Resp 16 10/25/23 08:49 BP 170/66 H 10/25/23 08:49 Pulse Ox 99 01/29/24 08:49 Time Spent Time spent with Patient: <40 minutes Time was spent: other
--- NOTE | 2023-10-25 10:06 | W.ANESPRE ---
General Info Date of Service Date Performed: 10/25/23 Height: 5 ft 10 in Weight: 85 kg Body Mass Index (BMI): 26.9 Surgical Procedure: Operation Date: 10/25/23 09:55 Proposed Procedure Side Surgeon p Cystoscopy/Retrograde/ Possible Bladder Biopsy Bilateral Elijah Jasmine MD Meds Allergies and Home Medications Allergies Allergy/AdvReac Type Severity Reaction Status Date / Time No Known Allergies Allergy Unverified 10/25/23 08:41 Home Medication Medication Instructions Recorded clopidogrel 75 mg tablet (Plavix) 75 mg PO DAILY #30 tabs 03/29/18 triamterene 37.5 1 tab-cap PO DAILY 04/27/18 mg-hydrochlorothiazide 25 mg tablet atorvastatin 80 mg tablet 80 mg PO DAILY 02/25/22 triamcinolone acetonide 0.1 % 1 applic topical DAILY 02/25/22 topical cream Current Visit Medications: Current Medications Generic Name Dose Route Start Last Admin Trade Name Freq PRN Reason Stop Dose Admin Ringer's Solution 1,000 mls @ 80 mls/hr 10/25/23 06:00 10/25/23 09:10 IV 11/21/23 23:59 80 mls/hr INFUSION CHARLEY Administration Cefazolin Sodium/Dextrose 2 gm in 50 mls @ 100 mls/hr 10/25/23 06:00 Ancef Duplex IVPB 10/25/23 16:00 PREOP CHARLEY IV Miscellaneous Supplies 1 each 10/25/23 06:00 Iv Access IV 11/21/23 23:59 DIRECTED CHARLEY Sodium Chloride 0 ml 10/25/23 06:00 Normal Saline Flush 10 Ml Syr IV 11/21/23 23:59 PRN PRN Sodium Chloride 0 ml 10/25/23 06:00 Normal Saline 10 Ml Vial IJ 11/21/23 23:59 DIRECTED PRN Sterile Water 0 ml 10/25/23 06:00 Water,Injection,Sterile 10 Ml Vial IJ 11/21/23 23:59 DIRECTED PRN PFSH Active Problems Active Problems: Problem Status Onset Code Hydronephrosis N13.30 Sensorineural hearing loss H90.5 Abnormal auditory perception of both ears H93.293 Epistaxis R04.0 Chronic frontal sinusitis J32.1 Maxillary sinusitis, chronic J32.0 Cyst of ear canal ~09/2023 Q18.1 Impacted cerumen, bilateral H61.23 Chest pain R07.9 Pre-diabetes R73.03 Hyperlipidemia E78.5 Hypertension I10 Cerebrovascular accident (CVA) due to embolism of right middle cerebral artery 04/27/18 I63.411 Carotid stenosis, right 04/27/18 I65.21 Surgical History Surgical History Inguinal hernia of left side without obstruction or gangrene History of tonsillectomy Tobacco Smoking/Tobacco Use Status: Never Alcohol Alcohol Intake: current Alcohol intake frequency: holidays/special occasions only Substance Use Substance use type: does not use Details: alcohol: jaleel Vital Signs and Lab Results Vital Signs Most Recent Vital Signs in EMR: Most Recent Vital Signs Temp Pulse Resp BP Pulse Ox 36.5 C 56 L 16 170/66 H 99 10/25/23 08:49 10/25/23 08:49 10/25/23 08:49 10/25/23 08:49 10/25/23 08:49 Lab Results Blood Type / Crossmatch: No Data to Display Complete Blood Count: No Data to Display Complete Metabolic Panel: Creatinine 2.4 mg/dL (0.70-1.30) H 10/11/23 14:19 Est GFR (CKD-EPI 2020) 26.12 (mL/min/1.73m2) 10/11/23 14:19 Liver Function Panel: No Data to Display Coagulation Panel: No Data to Display Cardiac Panel: No Data to Display Arterial Blood Gas: No Data to Display Venous Blood Gas: No Data to Display Pancreas Panel: No Data to Display Thyroid Panel: No Data to Display Infectious Disease: No Data to Display Blood Cultures: No Data to Display Toxicology Panel: No Data to Display Imaging and Studies Imaging and Studies Study information below may be from another EMR and interpreted by another provider. Please see original notes in EMR for more complete details. Echocardiogram Summary: 10/12/2023: EF 62%, aortic valve is trileaflet and moderately calcified. There is moderate aortic stenosis: valve area 1.1 cm2, peak pressure gradient 38.3mmHg, mean pressure gradient 23.1 mmHg. There are no other remarkable cardiac valve findings. Carotid Artery Summary:: 03/28/2018: IMPRESSION: No significant internal carotid artery stenosis. Anesthesia Assessment and Plan Anesthesia History Personal History: No History of Anesthesia Complications Family History: No Family History of Anesthesia Complications Exercise Tolerance Exercise Tolerance: Metabolic Equivalents>4 Pertinent Negatives Pertinent Negatives: No Symptoms of GERD Cardiac & Pulmonary Exam Cardiac Exam: Heart Murmur Present Pulmonary Exam: Clear Bilateral Breath Sounds Implantable Cardiac Device Does patient have a Pacemaker or an ICD?: No Airway Exam Known Difficult Airway: No Mallampati Class: 2 Mouth Opening: Normal (> 3cm) Thyromental Distance: Greater than 3 cm Neck Range of Motion: Full ROM Neck Circumference: Normal Teeth Condition: Normal Dentition ASA Classification ASA Score: ASA 3 Emergency Case?: No NPO Status NPO Status: NPO Clears >2 hours, Solids >8 hours Anesthesia Plan Resuscitation Status: Full Code Anesthesia Technique: General Anesthesia Airway Planned: Natural Airway Monitors Used: Standard Monitors
[2023-10-25] MEDS: ceFAZolin 2 GM/50 ML BAG IVPB (10:52)
[2023-10-25] MEDS: Lidocaine 2% Jelly 11 ML SYR (11:31)
[2023-10-25] MEDS: Omnipaque 300 MG/ML 50 ML BTL (11:31)
--- NOTE | 2023-10-25 11:46 | W.PM.DSUDISC ---
Date of service: 10/25/23 Time of Service: 11:50 Discharge Plan Discharge Details Reason For Visit: cystoscopy Attending Provider: Elijah Jasmine Primary Care Provider: Alexandro Oreilly Home Meds and New Rx's Prescriptions: No Action atorvastatin 80 mg tablet 80 mg PO DAILY triamcinolone acetonide 0.1 % cream 1 applic topical DAILY triamterene-hydrochlorothiazid 1 EACH tablet 1 tab-cap PO DAILY clopidogrel [Plavix] 75 MG tablet 75 mg PO DAILY Qty: 30 0RF Discharge Instructions Additional Instructions: may restart Plavix on 10/27/2023 (as long as urine is transparent) miranda and stent to leg bag or large drainage bag (pt choice) followup 1 to 2 weeks for labwork (ordered and to be done in lab) and renal ultrasound (to be done by me in office) Activity:: Activity as Tolerated Shower/Bathe:: 24 hours Diet:: As Tolerated DS: Diagnosis Discharge Diagnosis (1) Hydronephrosis: Status: Acute
--- NOTE | 2023-10-25 11:50 | W.PM.OP ---
Date of service: 10/25/23 Time of Service: 11:50 Operative Note Operative Note DATE OF PROCEDURE: 10/25/23 PRE-OP DIAGNOSIS: bilateral hydronephrosis POST-OP DIAGNOSIS: same PROCEDURE: cystoscopy, right retrograde pyelogram, insert right ureteral catheter SURGEON: Elijah Jasmine ANESTHESIA TYPE: Local By Surgeon and General:No Airway Refer to Anesthesia Record ESTIMATED BLOOD LOSS: 10 PATHOLOGY: none sent COMPLICATIONS: None Patient was transported to: same day Patient's condition: stable Implants: 5 Bulgarian right ureteral access catheter 16 Bulgarian Coude tipped miranda catheter with 10 cc sterile water in balloon Indications: This is an 83-year-old gentleman who was initially seen in urgent care for left groin pain. He was found to have bilateral hydronephrosis and hydroureter. His serum creatinine had increased compared to his baseline. He presents now for cystoscopy with bilateral retrograde pyelogram to evaluate the hydronephrosis Findings: no bladder mass right hydronephrosis and hydroureter Unable to perform a left retrograde pyelogram Procedure Description: The patient was given antibiotics and brought to the operating room on 10/25/2023. After successful induction of general anesthesia without intubation, he was placed in the dorsal lithotomy position. His genitalia was prepped and draped sterilely. 2% Xylocaine jelly was instilled into the urethra to act as a local anesthetic. A 22 Bulgarian rigid cystoscope was passed through the urethra into the bladder. The urethra and bladder were inspected with a 30 degree lens. The pendulous, bulbar and membranous urethra appeared normal with no strictures. The prostatic urethra showed lateral lobe enlargement and an elevated bladder neck. The bladder neck was entered and the bladder mucosa was inspected. The bladder was moderately trabeculated with no diverticuli or cellules present. Both ureteral orifices appeared normal with no blood coming from either side. I was unable to pass a wire or access catheter up the left ureteral orifice. On the right side, I was again unable to pass a ureteral access catheter, but I was able to pass a guidewire and advanced the catheter over the wire. There was significant distal J hooking of the ureter. I then did a retrograde pyelogram by injecting Omnipaque through the access catheter under fluoroscopic guidance. The ureter and collecting system were markedly dilated as previously seen on CT scan. I advanced the access catheter until the proximal end was up in the renal pelvis. I then withdrew the cystoscope and passed a 16 Bulgarian coud? tip catheter alongside the ureteral access catheter. I passed the coud? catheter through the urethra into the bladder. I inflated the catheter balloon with 10 cc of sterile water and hand irrigated the catheter with a Garland syringe. The ureteral access catheter was then brought into the lumen of the coud? catheter and both were hooked to gravity drainage. The patient tolerated the procedure well with no complications. We will make arrangements to recheck his serum creatinine and ultrasound in approximately 1 week to make sure his kidneys are responding to treatment of his presumed bladder outlet obstruction.
--- NOTE | 2023-10-25 12:07 | W.ANESPOSTOP ---
Postoperative Evaluation Date, Time and Location Date Performed: 10/25/23 Time Performed: 12:08 Patient Location: Day Surgery Unit Vital Signs Most Recent Imported Vital Signs: Most Recent Vital Signs Temp Pulse Resp BP Pulse Ox 36.1 C L 56 L 18 121/77 98 10/25/23 11:55 10/25/23 11:55 10/25/23 11:55 10/25/23 11:55 10/25/23 11:55 Pain Score Most Recent Pain Score: Most Recent Pain Score Pain Level 4 10/25/23 11:55 Assessment Mental Status: Awake (Alert & Oriented to Patient Baseline) Airway and Respiratory Function: Patent airway with normal (patient baseline) respiratory exam Cardiovascular Function: Hemodynamically Stable Hydration Status: Adequately Hydrated Nausea & Vomiting: No Nausea or Vomiting Pain: Pain is tolerable per patient Peripheral Nerve Block: Patient did not receive a nerve block
[2023-10-25] MEDS: Acetaminophen 500 MG TAB 1000 MG PO (12:52)
== END 2023-10-25 16:10 | disposition home or self-care (01) ==
PROVIDERS: PCP Family Medicine; Visit Provider Urology
PROC: (CPT 74450; principal; 2023-10-25 09:45)
DX: N13.30 Unspecified hydronephrosis (principal); N32.0 Bladder-neck obstruction; I10 Essential (primary) hypertension; R73.03 Prediabetes; E78.5 Hyperlipidemia, unspecified
CPT/HCPCS: 52005; 74420; J0690; J2001; J2371; J2405; J2704; J3010; Q9967

== ENCOUNTER 2023-11-09 12:43 | Outpatient (CLI) | payer MEDICARE, SELFPAY ==
[2023-11-09 09:16] LABS: CREATININE 2.3 mg/dL (0.70-1.30); Estimated GFR 27.49 (mL/min/1.73m2)
== END 2023-11-09 12:44 | disposition home or self-care (01) ==
LOC: LBO 12:44
PROVIDERS: PCP Family Medicine; Visit Provider Urology
DX: N13.30 Unspecified hydronephrosis (principal); R79.89 Other specified abnormal findings of blood chemistry
CPT/HCPCS: 36415; 76775; 82565

== ENCOUNTER 2023-11-30 16:21 | Outpatient (CLI) | payer MEDICARE, SELFPAY ==
[2023-11-30 15:14] LABS: CREATININE 1.7 mg/dL (0.70-1.30); Estimated GFR 39.51 (mL/min/1.73m2)
== END 2023-11-30 16:22 | disposition home or self-care (01) ==
LOC: LBO 16:22
PROVIDERS: PCP Family Medicine; Visit Provider Urology
DX: N13.30 Unspecified hydronephrosis (principal)
CPT/HCPCS: 36415; 82565

== ENCOUNTER → 2023-12-07 08:17 | Outpatient (BNVA) | payer MEDICARE, SELFPAY | PROVIDERS: PCP Family Medicine; Visit Provider Urology | DX: N13.30 Unspecified hydronephrosis (principal) | CPT/HCPCS: 76775 ==

== ENCOUNTER 2024-01-13 18:37 | Outpatient (CLI) | payer MEDICARE, SELFPAY ==
[2024-01-13 15:02] LABS: CREATININE 1.9 mg/dL (0.70-1.30); Estimated GFR 34.57 (mL/min/1.73m2)
== END 2024-01-13 18:38 | disposition home or self-care (01) ==
LOC: LBO 18:37
PROVIDERS: PCP Family Medicine; Visit Provider Urology
DX: N13.30 Unspecified hydronephrosis (principal)
CPT/HCPCS: 36415; 82565

== ENCOUNTER → 2024-01-21 07:51 | Outpatient (BNVA) | payer MEDICARE, SELFPAY | PROVIDERS: PCP Family Medicine; Referring Provider Family Medicine; Visit Provider Urology | DX: N13.30 Unspecified hydronephrosis (principal); R97.20 Elevated prostate specific antigen [PSA] | CPT/HCPCS: 76775 ==

== ENCOUNTER → 2024-03-03 12:39 | Outpatient (BNVA) | payer MEDICARE, SELFPAY | PROVIDERS: PCP Family Medicine; Referring Provider Family Medicine; Visit Provider Urology | DX: R31.0 Gross hematuria (principal) | CPT/HCPCS: 81003; 99214 ==

== ENCOUNTER 2024-03-03 14:39 | Outpatient (REF) | payer MEDICARE, SELFPAY | END 2024-03-03 14:40 | disposition home or self-care (01) | LOC: LBN 14:39 | PROVIDERS: PCP Family Medicine; Visit Provider Urology | DX: R31.9 Hematuria, unspecified (principal); R30.0 Dysuria; B96.89 Other specified bacterial agents as the cause of diseases classified elsewhere | CPT/HCPCS: 87086 ==

== ENCOUNTER 2024-03-23 17:20 | Observation (INO) | payer MEDICARE, SELFPAY ==
[2024-03-23] VITALS (29 sets, daily range): BP systolic 109–149; BP diastolic 54–133; PULSE 55–79; RESP 11–24; TEMP 36.8–36.9; O2SAT 96–98
--- NOTE | 2024-03-23 17:30 | RT.EKG_ITS ---
APPROVED REPORT Exam: Resting ECG Reason for Exam: weakness, abd pain Patient Location: E HR:68 bpm ECG Measurements Heart Rate 68 AXIS NE 175 P 19 QRSd 86 QRS 47 QT 416 T 84 QTc 432 Conclusion Sinus rhythm...normal P axis, V-rate 60- 99 Atrial premature complexes...SV complexes w/ short R-R intvls sinus rhtyhm, normal axis, PAC, consider lateral st depressions
--- NOTE | 2024-03-23 17:45 | DI.RAD_ITS ---
Exam(s) XR CHEST 2V PA LATERAL EXAM: XR CHEST 2V PA LATERAL CLINICAL HISTORY: epigastric pain TECHNIQUE: 2D digital imaging was performed of the chest. Two images were obtained. PA and lateral views were obtained. COMPARISON: CR XR CHEST 2V PA LATERAL from 06/06/2021 FINDINGS: MEDIASTINUM: Normal. HEART: Normal. PULMONARY VASCULATURE: Normal. LUNGS: No focal consolidating infiltrates. The lungs are again shown to be hyperinflated with flatte deborah diaphragms suggesting underlying COPD. PLEURAL SPACE: No pleural effusion or pneumothorax. BONE:Within normal limits for the patient's age. OTHER FINDINGS:Normal. IMPRESSION: No acute pulmonary findings. DATA REPOSITORY: RADIATION DOSE DELIVERED:
[2024-03-23 18:03] LABS: Abs Immature Grans 0.02 10^3/uL (0.0-0.06); Absolute Basophil Count 0.03 10^3/uL (0.0-0.2); Absolute Eosinophil Count 0.03 10^3/uL (0.0-0.7); Absolute Lymphocyte Count 0.39 10^3/uL (1.2-3.4); Absolute Monocyte Count 0.47 10^3/uL (0.1-0.8); Absolute Neutrophil Count 3.21 10^3/uL (1.2-6.7); Basophils % 0.7 %; Eosinophils % 0.7 %; HGB 11.7 g/dL (13.5-17.5); Immature Grans % 0.5 %; Lymphocytes % 9.4 %; MCH 30.2 pg (27.0-33.0); MCHC 33.4 % (32.0-36.0); MCV 90 fL (80-95); Monocytes % 11.3 %; Neutrophils % 77.4 %; Platelet Count 131 10^3/uL (130-400); RBC 3.88 10^6/uL (4.36-5.78); RDW 12.8 % (11.8-14.1); RDW-SD 42.3 fL; WBC 4.15 10^3/uL (4.4-10.8)
[2024-03-23] MEDS: Normal Saline 1,000 ML 1000 ML IV (18:05)
[2024-03-23 18:07] LABS: Bilirubin Negative (Negative); Blood Moderate (Negative); Clarity Clear (Clear); Glucose Negative (Negative); Ketones Negative (Negative); Leukocyte Esterase Negative (Negative); Nitrite Negative (Negative); Specific Gravity 1.015 (1.005-1.025); Urobilinogen 0.2 mg/dL (Up to 0.2)
[2024-03-23 18:14] LABS: Bacteria Negative HPF (Negative); C & S Indicated? No; Crystals Negative HPF (Negative); Epithelial Cells Negative HPF (Negative); Mucus Negative (Negative); RBC 20-50 HPF (0-2); WBC Negative HPF (0-5)
[2024-03-23 18:26] LABS: ALT 43 U/L (16-63); AST 33 U/L (15-37); Albumin 3.9 g/dL (3.4-5.0); Alkaline Phosphatase 97 U/L (46-116); Anion Gap 12.5 mmol/L (3-11); BUN 69 mg/dL (7-18); Bilirubin, Total 0.42 mg/dL (0.2-1.0); CO2 22.5 mmol/L (21.0-32.0); Calcium 8.5 mg/dL (8.5-10.1); Chloride 102 mmol/L (98-107); Creatine Kinase 100 U/L (39-308); Estimated GFR 14.49 (mL/min/1.73m2); Glucose 121 mg/dL (74-106); Lipase 38 U/L (16-77); Magnesium 1.7 mg/dL (1.8-2.4); Potassium 4.6 mmol/L (3.5-5.1); Sodium 137 mmol/L (136-145); Total Protein 7.6 g/dL (6.4-8.2); Troponin I < 50 ng/L (< or =60)
--- NOTE | 2024-03-23 18:30 | DI.CT_ITS ---
Exam(s) CT ABDOMEN PELVIS WO EXAM: CT ABDOMEN PELVIS WO CLINICAL HISTORY: ARF, abdominal pain. TECHNIQUE: Imaging Protocol: Axial computed tomography images with coronal and sagittal reformatted images were created and reviewed. COMPARISON: CT CT ABDOMEN PELVIS WO from 10/05/2023 FINDINGS: ABDOMEN: Lung Bases: There is a moderate size hiatal hernia. Mild dependent atelectasis is present. Liver: Normal density. No measurable mass. Gallbladder and biliary tract: No radiodense calculus or biliary ductal dilation. Pancreas: Normal density, no abnormal calcifications or inflammatory process. Spleen: Normal. Kidneys: Normal size, contour and axis.There is no nephrolithiasis. There is persistent marked dilat ation of the renal collecting system without ureterolithiasis. There is relatively normal caliber of the ureters at the UVJ bilaterally. No definite obstructing mass is seen. There are stable bilater al renal cysts. No follow-up is recommended. The hyperdense lesion in the superior aspect of the le ft kidney is unchanged and likely reflects a hemorrhagic cyst. Renal ultrasound is recommended for f urther evaluation. Adrenal glands: No mass is seen. Lymph nodes: Stable mildly enlarged lymph nodes in the mesentery. Abdominal Aorta: Abdominal portion non-dilated. Atherosclerotic calcification is present. PELVIS: Bladder:Symmetric distention, no gross wall thickening. Bowel: There is diverticulosis of the colon without evidence of acute diverticulitis. There is no ev idence of bowel obstruction or bowel wall thickening. No evidence of appendicitis. Peritoneal cavity: No ascites, collection or mesenteric inflammatory response. No free air. Reproductive organs: Mildly enlarged prostate gland. Bones: Within normal limits for the patient's age. There is a right convex curvature of the thoracol umbar spine centered at T12-L1. Soft Tissues: Within normal limits. IMPRESSION: 1. Persistent bilateral hydroureteronephrosis. Differential considerations should include reflex or a urinary bladder mass. No discrete mass is seen on this examination, however urology consult should be considered and evaluation with cystoscopy. 2. No acute abdominal or pelvic process. RADIATION DOSE DELIVERED: 946.92mGy.cm Total DLP DATA REPOSITORY: All CT scans at this facility are submitted to the National Radiology Data Registry (NRDR) Dose Index Registry (DIR) with the [employer] (A[employer]). RADIATION OPTIMIZATION: All CT scans at this facility use at least one of these dose optimization te chniques: automated exposure control; mA and/or kV adjustment per patient size (includes targeted exa ms where dose is matched to clinical indication); or iterative reconstruction.
[2024-03-23 18:33] LABS: CREATININE 3.9 mg/dL (0.70-1.30)
--- NOTE | 2024-03-23 19:39 | DI.VRAD_ITS ---
PROCEDURE INFORMATION: Exam: XR Chest Exam date and time: 03/23/2024 7:17 PM Age: 84 years old Clinical indication: Other: Epigastric pain TECHNIQUE: Imaging protocol: Radiologic exam of the chest. Views: 2 views. COMPARISON: CR XR CHEST 2V PA LATERAL 06/06/2021 11:56 AM FINDINGS: Lungs: Mild hyperinflation without airspace consolidation. Pleural spaces: No pleural effusion. No pneumothorax. Heart/Mediastinum: No cardiomegaly. Bones/joints: No acute fracture. IMPRESSION: Mild hyperinflation without airspace consolidation. Dictated and Authenticated by: Keerthi Mcgee MD. Ordering:KVNG Bhardwaj MD
--- NOTE | 2024-03-23 19:42 | DI.VRAD_ITS ---
PROCEDURE INFORMATION: Exam: CT Abdomen And Pelvis Without Contrast Exam date and time: 03/23/2024 7:13 PM Age: 84 years old Clinical indication: Other: Arf, abdominal pain TECHNIQUE: Imaging protocol: Computed tomography of the abdomen and pelvis without contrast. COMPARISON: CT ABDOMEN PELVIS WO 10/05/2023 3:30 PM FINDINGS: Diaphragm: Small hiatal hernia. Liver: No mass on noncontrast imaging. Gallbladder and biliary ducts: No calcified stones. No gross ductal dilation on noncontrast imaging. Pancreas: No ductal dilation. No mass on noncontrast imaging. Spleen: No splenomegaly or suspicious lesions. Adrenal glands: No suspicious mass on noncontrast imaging. Kidneys and ureters: Severe bilateral hydroureteronephrosis. Hyperdense 12 mm left renal cortical lesion, probably hemorrhagic cysts mass not excluded. Follow-up as per institutional protocol. Benign-appearing renal cyst(s) and/or probable cyst(s). No right nephrolithiasis. No left nephrolithiasis. Cortical renal atrophy is mild slightly more pronounced on the left likely consistent with a chronic component of obstruction or chronic medical renal disease. Stomach and bowel: Colonic diverticulosis without diverticulitis. Fluid-filled small bowel without significant obstruction or inflammation on noncontrast imaging. Appendix: No evidence of appendicitis. Intraperitoneal space: No free air. No significant fluid collection. Vasculature: No abdominal aortic aneurysm. Lymph nodes: No significantly enlarged lymph nodes on noncontrast imaging. Urinary bladder: The urinary bladder is distended. Mild generalized bladder wall thickening likely chronic outlet obstructive disease related. Reproductive: Moderate prostatic enlargement. Bones/joints: Chronic bony changes with no acute fracture. Soft tissues: No suspicious lesions. IMPRESSION: 1. Severe bilateral hydroureteronephrosis has slightly worsened, favor due to reflux and/or other disease of the bladder or ureterovesicular junction bilaterally. 2. Incidental findings as described. Dictated and Authenticated by: Keerthi Mcgee MD. Ordering:KVNG Bhardwaj MD
[2024-03-23] MEDS: Lidocaine 2% Jelly 11 ML SYR UR ×2 (21:53)
--- NOTE | 2024-03-23 22:04 | ED.GENADUL_ITS ---
Discharge Plan Disposition Patient Disposition: Admit to [facility] Condition: Serious Discharge Details Clinical Impression: Hydronephrosis, Acute renal failure, Acute on chronic urinary retention Admit Date/Time: 03/23/24 20:33 Admit Provider: Alonso Booker Attending Provider: Alonso Booker Primary Care Provider: Alexandro Oreilly ED Provider: Lashae Salas Discharge Data Discharge Date/Time-TO BE ENTERED AT DEPARTURE: 03/23/24 21:23 HPI General Date/Time Provider Initiated Documentation: 03/23/24 17:31 . HPI Narrative: This 84-year-old male presents with report of abdominal pain weakness, nausea, vomiting. Patient states his symptoms started around the time he started taking Bactrim. He states he started taking Bactrim secondary to some urinary complaints per patient. Denies any actual vomiting or diarrhea. Patient denies any chest pain or shortness of breath. He states as though he feels like he has a fever. He is also unsure as he is able to empty completely. Related Data Home Medications Medication Instructions Recorded Confirmed clopidogrel 75 mg tablet (Plavix) 75 mg PO DAILY #30 tabs 03/29/18 03/23/24 triamterene 37.5 1 tab-cap PO DAILY 04/27/18 03/23/24 mg-hydrochlorothiazide 25 mg tablet atorvastatin 80 mg tablet 80 mg PO DAILY 02/25/22 03/23/24 triamcinolone acetonide 0.1 % 1 applic topical DAILY 02/25/22 03/23/24 topical cream tamsulosin 0.4 mg capsule (Flomax) 0.4 mg PO DAILY 03/03/24 03/23/24 sulfamethoxazole 800 1 tab PO DAILY antibiotic #30 tabs 03/10/24 03/23/24 mg-trimethoprim 160 mg tablet (Bactrim DS) Previous Rx's Medication Instructions Recorded clopidogrel 75 mg tablet (Plavix) 75 mg PO DAILY #30 tabs 03/29/18 sulfamethoxazole 800 1 tab PO DAILY antibiotic #30 tabs 03/10/24 mg-trimethoprim 160 mg tablet (Bactrim DS) Allergies Allergy/AdvReac Type Severity Reaction Status Date / Time No Known Allergies Allergy Unverified 03/23/24 17:26 General Stated Complaint: Abd Prob ARELIS: 3 Exam Narrative Exam Narrative: Alert and oriented, pupils equal round reactive to light and accommodation, lungs clear to auscultation, cardiac rate rhythm regular, no abdominal tenderness, no pallor, alert and oriented x 4, no peripheral edema, distal pulses intact. Course Vital Signs Vital signs: Vital Signs Temperature 36.9 C 03/23/24 17:24 Pulse 60 03/23/24 17:24 Respiratory Rate 20 03/23/24 17:24 Blood Pressure 131/72 03/23/24 17:24 Pulse Oximetry 98 03/23/24 17:24 Temperature 36.8 C 03/23/24 21:16 Temperature Source Oral 03/23/24 18:00 Pulse 57 L 03/23/24 21:16 Pulse Rhythm Regular 03/23/24 21:16 Pulse 60 03/23/24 20:50 Respiratory Rate 19 03/23/24 21:16 Respiratory Effort Normal 03/23/24 21:16 Respiratory Depth Normal 03/23/24 21:16 Respiratory Pattern Normal 03/23/24 21:16 Blood Pressure 134/71 03/23/24 21:16 Blood Pressure Mean 80 03/23/24 19:46 Blood Pressure Position Sitting 03/23/24 18:00 Pulse Oximetry 97 03/23/24 21:16 Oxygen Delivery Method Room Air 03/23/24 21:16 Oxygen Flow Rate 0 03/23/24 21:16 Pain Level 4 03/23/24 18:00 Lab/Test Results Lab/Test Results: Laboratory Tests Range/Units 03/23/24 03/23/24 17:33 17:54 WBC (4.4-10.8) 10^3/uL 4.15 L RBC (4.36-5.78) 10^6/uL 3.88 L Hgb (13.5-17.5) g/dL 11.7 L Hct (40.0-50.0) % 35.0 L MCV (80-95) fL 90 MCH (27.0-33.0) pg 30.2 MCHC (32.0-36.0) % 33.4 RDW (11.8-14.1) % 12.8 Plt Count (130-400) 10^3/uL 131 MPV (8.0-11.0) fL 11.0 Immature Gran % % 0.5 Neutrophils % % 77.4 Lymphocytes % % 9.4 Monocytes % % 11.3 Eosinophils % % 0.7 Basophils % % 0.7 Nucleated RBC % (0.0-0.3) % 0.0 Absolute Neutrophils (1.2-6.7) 10^3/uL 3.21 Absolute Lymphocytes (1.2-3.4) 10^3/uL 0.39 L Absolute Monocytes (0.1-0.8) 10^3/uL 0.47 Absolute Eosinophils (0.0-0.7) 10^3/uL 0.03 Absolute Basophils (0.0-0.2) 10^3/uL 0.03 Sodium (136-145) mmol/L 137 Potassium (3.5-5.1) mmol/L 4.6 Chloride (98-107) mmol/L 102 Carbon Dioxide (21.0-32.0) mmol/L 22.5 Anion Gap (3-11) mmol/L 12.5 H BUN (7-18) mg/dL 69 H Creatinine (0.70-1.30) mg/dL 3.9 H* Est GFR (CKD-EPI 2020) (mL/min/1.73m2) 14.49 Glucose (74-106) mg/dL 121 H Calcium (8.5-10.1) mg/dL 8.5 Magnesium (1.8-2.4) mg/dL 1.7 L Total Bilirubin (0.2-1.0) mg/dL 0.42 AST (15-37) U/L 33 ALT (16-63) U/L 43 Alkaline Phosphatase (46-116) U/L 97 Creatine Kinase (39-308) U/L 100 Troponin I (< or =60) ng/L < 50 Total Protein (6.4-8.2) g/dL 7.6 Albumin (3.4-5.0) g/dL 3.9 Lipase (16-77) U/L 38 Urine Color (Yellow) Yellow Urine Clarity (Clear) Clear Urine pH (5-8) 6.0 Ur Specific [place] (1.005-1.025) 1.015 Urine Protein (Neg-Trace) mg/dL Negative Urine Ketones (Negative) mg/dL Negative Urine Blood (Negative) Moderate H Urine Nitrite (Negative) Negative Urine Bilirubin (Negative) Negative Urine Urobilinogen (Up to 0.2) mg/dL 0.2 Ur Leukocyte Esterase (Negative) Negative Urine RBC (0-2) HPF 20-50 H Urine WBC (0-5) HPF Negative Ur Epithelial Cells (Negative) HPF Negative Urine Crystals (Negative) HPF Negative Urine Bacteria (Negative) HPF Negative Urine Mucus (Negative) Negative Ur Culture Indicated? No Urine Glucose (Negative) mg/dL Negative Medical Decision Making 85-year-old male presenting with general malaise and urinary complaints with abdominal pain. CT abdomen and pelvis was ordered for further evaluation shows evidence of significant hydronephrosis and distended bladder, Shannon catheter will be placed, please see nursing documentation. Postplacement approximately 500 cc of urine Patient also was recently started on Bactrim approximately 2 weeks ago, this is likely contributing to patient's acute renal failure. Will give IV fluid hydration and discontinue this medication he has not taken his Bactrim today per patient. Chest x-ray per radiology interpretation my review does not show salma dence of acute abnormality. Vitals have remained stable throughout this encounter, patient has remained afebrile. There is no evidence of secondary urinary tract infection. Patient does have some blood cells in his urine. Hemoglobin and hematocrit are mildly low, 11.7 and 35, not significantly changed from prior, however last blood draw was performed in 2020. Creatinine of 3.9, this is an acute change from 0.9 several months ago. BUN of 69 and gap of 12.5, glucose 121. Dr. Jasmine was consulted as initially we did have difficulty placing a Shannon catheter, however on second attempt this was successful. At this time patient will need admission for observation to be sure his creatinine is improving given the acute change. I suspect failure is multifactorial from both post and intrarenal disease likely in the presence of antibiotics. Quality:[facility] Health Related Social Needs: No Data to Display [facility] All Active Problems (Updated 03/23/24 @ 22:12 by FERNANDO Fuller) Acute on chronic urinary retention (Acute) Acute renal failure (Acute) Gross hematuria (Acute) Elevated PSA (Acute) Hydronephrosis (Acute) Sensorineural hearing loss (Acute) Abnormal auditory perception of both ears (Acute) Epistaxis (Acute) Chronic frontal sinusitis (Acute) Maxillary sinusitis, chronic (Acute) Cyst of ear canal (Acute ~09/2023) Impacted cerumen, bilateral (Acute) Chest pain (Acute) Pre-diabetes (Chronic) Hyperlipidemia (Chronic) Hypertension (Chronic) Carotid stenosis, right (Chronic 04/27/18) Surgical History Inguinal hernia of left side without obstruction or gangrene History of tonsillectomy Family History Father Alcohol abuse Stroke Social History Smoking/Tobacco Use Status: Never Smoking risk assessment performed?: Yes Alcohol Intake: current Alcohol Intake frequency: holidays/special occasions only Substance use type: does not use Details: alcohol: jaleel Household members: none Housing: house Number of Children: 2 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
--- NOTE | 2024-03-23 22:46 | W.PM.HP.N ---
Date of service: 03/23/24 Time of Service: 21:50 Assessment and Plan Assessment and plan (1) Acute renal failure: Status: Acute Assessment and plan: I think this is primarily post-renal related to bladder outlet obstruction by the prostate. His hydronephrosis is worse on imaging and he put out 800ml urine after the catheter was placed. Bactrim could also be contributing to intrinsic as well as prerenal component. He has hematuria but no proteinuria or casts to suggest significant intrinsic disease. Miranda placed. Gentle hydration. Stop SMX/TMP and holding diuretics. Monitor renal function in the morning. If not improving consider further work up with urine studies. I did send alb/cr to assess prognosis. (2) Acute on chronic urinary retention: Status: Acute Assessment and plan: As above Urology referral Increased tamsulosin dose and added finasteride, which will take a while to work. He may need to go home with miranda short term. (3) Gross hematuria: Status: Acute Assessment and plan: Persistent, had work up, per Kenroy likely source is prostate. (4) Hypertension: Status: Chronic Assessment and plan: Holding triempterene/HCTZ. The 2 diuretics make him more succeptable to DREW related to azotemia. He has been on this forever, but may benefit from change to MICAH/ARB for renal protection given CKD, perhaps with CCB. (5) Cerebrovascular accident (CVA) due to embolism of right middle cerebral artery: Assessment and plan: Continue clopidogrel and high intensity statin. (6) DVT prophylaxis: Status: Acute Assessment and plan: heparin given low GFR (7) Discharge planning issues: Status: Acute Assessment and plan: he is observation status, I expect his renal function to improve with relief of obstruction. I confirmed he is DNR/DNI History of Present Illness History of Present Illness Chief Complaint: abd bloating, malaise Narrative: 84 yo M with history of obstructive uropathy assocated with prostatic hypertrophy, HTN, and h/o CVA who presented today with 1 month of persistent abdominal discomfort and bloating. No pain, but a feeling of constant bloating. Some days felt good and others he felt worse. Eating generally made it worse. No change in BMs, though he does tend towards constipation. No dysuria. He has some nausea and decreased appetite but no vomiting. He does have and increase in urinary frequency, about every 2 hours. He feels chilled more in the past month, assumes he had fevers as well but not measured. Yesterday, he thought he was feeling better, but today he was sitting at home feeling weak and chilled. He was wearing two flannels and a winter hat, decided to come into express care and he was sent to the ED. He states he first started feeling bad in october. He was diagnosed with urine obstruction and treated by Dr. Jasmine and felt better after that. On 03/03/24 he was seen by Dr. Jasmine for hematuria. He was given Bactrim DS empirically. Per the note this was a short term trial pending culture (which did no grow a clear pathogen) but per the patient he has been taking every day since. Regarding the blood pressure medication, he has taken the same medication for 40 years or so. Review of Systems All systems reviewed & are unremarkable except as noted in HPI and below Constitutional Constitutional: Reports headache(s) (mild diffuse headache recently, which is not typical for him) ENT Ears, Nose, Mouth, and Throat: Reports headache(s) (mild diffuse headache recently, which is not typical for him), Reports nasal discharge (runny nose all month), Reports post nasal drip and Denies sore throat Cardiovascular Cardiovascular: Denies chest pain, Denies dyspnea on exertion and Reports orthopnea (2 pillows) Respiratory Respiratory: Denies dyspnea on exertion Neurologic Neurologic: Reports headache(s) (mild diffuse headache recently, which is not typical for him) Hematologic/Lymphatic Hematologic/Lymphatic: Denies easy bleeding PFSH All Active Problems (Updated 03/23/24 @ 23:13 by Alonso Booker) Discharge planning issues (Acute) DVT prophylaxis (Acute) Acute on chronic urinary retention (Acute) Acute renal failure (Acute) Gross hematuria (Acute) Elevated PSA (Acute) Hydronephrosis (Acute) Sensorineural hearing loss (Acute) Abnormal auditory perception of both ears (Acute) Maxillary sinusitis, chronic (Acute) Cyst of ear canal (Acute ~09/2023) Hypertension (Chronic) Carotid stenosis, right (Chronic 04/27/18) Medical History (Updated 03/23/24 @ 23:13 by Alonso Booker) Cerebrovascular accident (CVA) due to embolism of right middle cerebral artery (04/27/18) Hyperlipidemia Pre-diabetes Chronic frontal sinusitis Surgical History Inguinal hernia of left side without obstruction or gangrene History of tonsillectomy Family History (Updated 03/23/24 @ 23:00 by Alonso Booker) Father Alcohol abuse Stroke Sister Blind Social History (Updated 03/23/24 @ 23:01 by Alonso Booker) Smoking/Tobacco Use Status: Never Smoking risk assessment performed?: Yes Alcohol Intake: current Alcohol Intake frequency: holidays/special occasions only Substance use type: does not use Details: alcohol: jaleel Household members: none Housing: house Number of Children: 2 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 Dtr and BAKARI (who is OBGYN) live close Meds Allergies and Home Medications Allergies Allergy/AdvReac Type Severity Reaction Status Date / Time No Known Allergies Allergy Unverified 03/23/24 17:26 Home Medications Medication Instructions Recorded Confirmed Type clopidogrel 75 mg tablet (Plavix) 75 mg PO DAILY #30 tabs 03/29/18 03/23/24 Rx triamterene 37.5 1 tab-cap PO DAILY 04/27/18 03/23/24 History mg-hydrochlorothiazide 25 mg tablet atorvastatin 80 mg tablet 80 mg PO DAILY 02/25/22 03/23/24 History triamcinolone acetonide 0.1 % 1 applic topical DAILY 02/25/22 03/23/24 History topical cream tamsulosin 0.4 mg capsule (Flomax) 0.4 mg PO DAILY 03/03/24 03/23/24 History sulfamethoxazole 800 1 tab PO DAILY antibiotic #30 tabs 03/10/24 03/23/24 Rx mg-trimethoprim 160 mg tablet (Bactrim DS) Exam Narrative Exam Narrative: GEN: Alert and oriented x 4, pleasant and cooperative, gives linear history. No acute distress at rest. HEENT: Head atraumatic. Conjunctiva clear, no icterus. PEERL, EOMI. no rhinorrhea. MMM, OP benign. Neck is supple with no masses or lymphadenopathy, trachea midline LUNGS: CTAB with normal effort CV: RRR with 2/6 systolic murmur, radiates to neck and axilla. No gallops or rubs. ABD: +BS, soft, NT/ND, no masses or organomegaly EXT: no cyanosis, clubbing, or edema MSK: No joint redness or swelling. No CVA tenderness NEURO: CN 2-12 grossly intact. Normal movement of 4 extremities. Normal speech and coordination SKIN: No rashes or open wounds. PSYCH: normal mood and affect Results Imaging Chest x-ray: report reviewed (Mild hyperinflation without airspace consolidation. ) and image reviewed Abdomen CT scan report/results: report reviewed (. Severe bilateral hydroureteronephrosis has slightly worsened, favor due to reflux and/or other disease of the bladder or ureterovesicular junction bilaterally. 2. Incidental findings as described. ) EKG: report reviewed and image reviewed (NSR 64, PACs, nl axis, no ischemic changes) Labs 03/23/24 17:54 03/23/24 17:54 Labs: Laboratory Results - last 24 hr 03/23/24 03/23/24 17:33 17:54 WBC 4.15 L RBC 3.88 L Hgb 11.7 L Hct 35.0 L MCV 90 MCH 30.2 MCHC 33.4 RDW 12.8 Plt Count 131 MPV 11.0 Immature Gran % 0.5 Neutrophils % 77.4 Lymphocytes % 9.4 Monocytes % 11.3 Eosinophils % 0.7 Basophils % 0.7 Nucleated RBC % 0.0 Absolute Neutrophils 3.21 Absolute Lymphocytes 0.39 L Absolute Monocytes 0.47 Absolute Eosinophils 0.03 Absolute Basophils 0.03 Sodium 137 Potassium 4.6 Chloride 102 Carbon Dioxide 22.5 Anion Gap 12.5 H BUN 69 H Creatinine 3.9 H* Est GFR (CKD-EPI 2020) 14.49 Glucose 121 H Calcium 8.5 Magnesium 1.7 L Total Bilirubin 0.42 AST 33 ALT 43 Alkaline Phosphatase 97 Creatine Kinase 100 Troponin I < 50 Total Protein 7.6 Albumin 3.9 Lipase 38 Urine Color Yellow Urine Clarity Clear Urine pH 6.0 Ur Specific [place] 1.015 Urine Protein Negative Urine Ketones Negative Urine Blood Moderate H Urine Nitrite Negative Urine Bilirubin Negative Urine Urobilinogen 0.2 Ur Leukocyte Esterase Negative Urine RBC 20-50 H Urine WBC Negative Ur Epithelial Cells Negative Urine Crystals Negative Urine Bacteria Negative Urine Mucus Negative Ur Culture Indicated? No Urine Glucose Negative Last Vital Signs Temp 36.8 C 03/23/24 22:04 Pulse 57 L 03/23/24 22:04 Resp 19 03/23/24 22:04 BP 134/71 03/23/24 22:04 Pulse Ox 97 03/23/24 22:04 Time Spent Time spent with Patient: 55-74 minutes Time was spent: preparing to see the patient(eg.review tests), obtaining and/or reviewing separately otained hiistory, ordering medications,tests, procedures, referring, communicating with other health group care worker, indepentently interpreting results and counseling the patient
[2024-03-23] MEDS: Heparin 5,000 UNITS/ML VIAL 5000 UNITS SC (23:25)
[2024-03-24 06:58] LABS: Anion Gap 13.4 mmol/L (3-11); BUN 65 mg/dL (7-18); CO2 21.6 mmol/L (21.0-32.0); CREATININE 3.4 mg/dL (0.70-1.30); Calcium 8.2 mg/dL (8.5-10.1); Chloride 107 mmol/L (98-107); Estimated GFR 17.09 (mL/min/1.73m2); Glucose 106 mg/dL (74-106); Potassium 4.3 mmol/L (3.5-5.1); Sodium 142 mmol/L (136-145)
[2024-03-24 07:09] LABS: COMMENT (LAB VIEW ONLY) 43.85 mg/dL; PROTEIN 14.6 mg/dL; Prot/Crea Ur Ratio 0.33
--- NOTE | 2024-03-24 07:30 | W.UROLOGYCON ---
Date of service: 03/24/24 Time of Service: 07:30 Assessment and Plan Assessment and plan (1) Acute on chronic urinary retention: Status: Acute (2) Hydronephrosis: Status: Acute Assessment and plan: All evidence points to bladder outlet obstruction as the source of his worsening renal function. I would hope that his renal function returns to its baseline with catheter drainage of his bladder. If the renal function does not return to baseline, we may need to consider nephrostomy tube placement (I was previously unable to pass a catheter up the left ureter when I did cystoscopy). As long as his renal function continues to improve, I would leave the Shannon catheter in place while we decide on an ultimate treatment for him. I think we can safely say that he has failed medical therapy, so we would likely either need to consider surgical treatment (such as a TURP) or chronic catheterization (CIC would be preferred, but a chronic indwelling catheter can also be considered). (3) Acute renal failure: Status: Acute Qualifiers: Acute renal failure type: unspecified Qualified Code(s): N17.9 - Acute kidney failure, unspecified (4) Anemia: Status: Chronic History of Present Illness History of Present Illness Chief Complaint: Obstructive uropathy Narrative: This is an 84-year-old gentleman who has been previously seen in our office. He initially presented to an urgent care facility with left groin pain. He was concerned he might have a recurrent inguinal hernia. Imaging studies demonstrated bilateral hydronephrosis. The radiologist who read his films was concerned about independent masses obstructing both ureters at the ureterovesical junction. We did a cystoscopy and found no such mass. We suspected bladder outlet obstruction with back pressure up both kidneys. We placed a Shannon catheter and started him on medical management with alpha blockers. His renal function and his degree of dilation in the kidneys improved. His serum creatinine did not completely return to normal, but remained between 1.5 and 2.0 mg/dL. We had been following him with blood work and [id number] renal ultrasounds. He came into the office recently with complaints of cloudiness to his urine and some dysuria. I started him on Bactrim empirically, but his urine culture came back with Staph aureus. We do not generally treat Staph aureus in the urine unless patients have a foreign body allowing for a point of entry. Since the patient did have a previous Shannon catheter and his urine symptoms improved with a few days of Bactrim, we elected to continue his antibiotic treatment. He had done fairly well until the day of admission. He had worsening lower abdominal discomfort and difficulty voiding. He was found to have worsening serum creatinine and worsening hydronephrosis on CT scan. A Shannon catheter was placed and he has been admitted to monitor his renal function. He tells me that his lower abdominal discomfort has lessened since the Shannon catheter was placed. PFSH All Active Problems (Updated 03/27/24 @ 00:10 by PRABHAKAR PUGA) Acute on chronic renal failure (Acute) Aortic stenosis (Chronic) Anemia (Chronic) Acute on chronic urinary retention (Acute) Acute renal failure (Acute) Elevated PSA (Acute) Hydronephrosis (Acute) Sensorineural hearing loss (Acute) Abnormal auditory perception of both ears (Acute) Maxillary sinusitis, chronic (Acute) Cyst of ear canal (Acute ~09/2023) Hypertension (Chronic) Carotid stenosis, right (Chronic 04/27/18) Medical History (Updated 03/27/24 @ 00:10 by PRABHAKAR PUGA) Cerebrovascular accident (CVA) due to embolism of right middle cerebral artery (04/27/18) Hyperlipidemia Pre-diabetes Chronic frontal sinusitis Surgical History Inguinal hernia of left side without obstruction or gangrene History of tonsillectomy Family History (Updated 03/23/24 @ 23:00 by Alonso Booker) Father Alcohol abuse Stroke Sister Blind Social History (Updated 03/23/24 @ 23:01 by Alonso Booker) Smoking/Tobacco Use Status: Never Smoking risk assessment performed?: Yes Alcohol Intake: current Alcohol Intake frequency: holidays/special occasions only Substance use type: does not use Details: alcohol: jaleel Household members: none Housing: house Number of Children: 2 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 Dtr and BAKARI (who is OBGYN) live close Exam Narrative Exam Narrative: He appears fairly comfortable and in a good mood His vital signs are documented elsewhere His chest wall motion is normal. He is not short of breath at rest. There is no CVA tenderness His abdomen has no peritoneal signs His Shannon catheter is draining clear urine He is awake and alert I reviewed his CT scan on the PACS system. In addition to a previously identified left renal cyst, he has progression of his bilateral hydronephrosis and a distended bladder. Results Last Vital Signs Temp 36.8 C 03/23/24 22:04 Pulse 58 L 03/23/24 23:26 Resp 19 03/23/24 22:04 BP 134/71 03/23/24 22:04 Pulse Ox 97 03/23/24 22:04 Labs 03/26/24 06:02 03/26/24 06:02 Labs: Laboratory Results - last 24 hr 03/23/24 03/23/24 03/24/24 17:33 17:54 05:46 WBC 4.15 L RBC 3.88 L Hgb 11.7 L Hct 35.0 L MCV 90 MCH 30.2 MCHC 33.4 RDW 12.8 Plt Count 131 MPV 11.0 Immature Gran % 0.5 Neutrophils % 77.4 Lymphocytes % 9.4 Monocytes % 11.3 Eosinophils % 0.7 Basophils % 0.7 Nucleated RBC % 0.0 Absolute Neutrophils 3.21 Absolute Lymphocytes 0.39 L Absolute Monocytes 0.47 Absolute Eosinophils 0.03 Absolute Basophils 0.03 Sodium 137 142 Potassium 4.6 4.3 Chloride 102 107 Carbon Dioxide 22.5 21.6 Anion Gap 12.5 H 13.4 H BUN 69 H 65 H Creatinine 3.9 H* 3.4 H Est GFR (CKD-EPI 2020) 14.49 17.09 Glucose 121 H 106 Calcium 8.5 8.2 L Magnesium 1.7 L Total Bilirubin 0.42 AST 33 ALT 43 Alkaline Phosphatase 97 Creatine Kinase 100 Troponin I < 50 Total Protein 7.6 Albumin 3.9 Lipase 38 Urine Color Yellow Urine Clarity Clear Urine pH 6.0 Ur Specific [place] 1.015 Urine Protein Negative Urine Ketones Negative Urine Blood Moderate H Urine Nitrite Negative Urine Bilirubin Negative Urine Urobilinogen 0.2 Ur Leukocyte Esterase Negative Urine RBC 20-50 H Urine WBC Negative Ur Epithelial Cells Negative Urine Crystals Negative Urine Bacteria Negative Urine Mucus Negative Ur Culture Indicated? No Ur Random Creatinine U Random Total Protein U [place] Prot/Creat Ratio Urine Glucose Negative 06/28/24 06:00 WBC RBC Hgb Hct MCV MCH MCHC RDW Plt Count MPV Immature Gran % Neutrophils % Lymphocytes % Monocytes % Eosinophils % Basophils % Nucleated RBC % Absolute Neutrophils Absolute Lymphocytes Absolute Monocytes Absolute Eosinophils Absolute Basophils Sodium Potassium Chloride Carbon Dioxide Anion Gap BUN Creatinine Est GFR (CKD-EPI 2020) Glucose Calcium Magnesium Total Bilirubin AST ALT Alkaline Phosphatase Creatine Kinase Troponin I Total Protein Albumin Lipase Urine Color Urine Clarity Urine pH Ur Specific [place] Urine Protein Urine Ketones Urine Blood Urine Nitrite Urine Bilirubin Urine Urobilinogen Ur Leukocyte Esterase Urine RBC Urine WBC Ur Epithelial Cells Urine Crystals Urine Bacteria Urine Mucus Ur Culture Indicated? Ur Random Creatinine 43.85 U Random Total Protein 14.6 U [place] Prot/Creat Ratio 0.33 Urine Glucose
[2024-03-24 07:41] VITALS: BP 116/67; PULSE 54; RESP 16; TEMP 36.9; O2SAT 95
--- NOTE | 2024-03-24 08:40 | PDOC.CMIN ---
Date of service: 03/24/24 Time of Service: 08:40 Care Management Initial Assmt Initial Assessment Reason for Hospitalization: DREW Functional Status/Living Situation Patient Presentation: trevon was sitting up in bed visiting with his daughter when CM met with him. He was pleasant and agreeable to conversation. During the discussion, Trevon shared that his about a year ago. He has 2 children, a son and a daughter, who live locally. They are very supportive and check on him daily. Trevon does not receive any services and does not feel he will need anything at discharge. He did say the one thing he misses is the fact that his was such an excellent cook. Trevon does not wish to get Meals on Wheels but shared that he used to go to the local meal sites sometimes and that the food was very good. 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 [place].) Instrumental Activities of Daily Living (ADLs): Independent Medications Medication Management: No Issues/Barriers identified Physical Functioning/Mobility Assistive Device: none Advance Directives Advance Directives: Do you have an Advance Directive: N 03/03/22 13:42 AD On File at [facility]: N 03/03/22 13:42 Date Asked 03/23/24 03/23/24 17:28 AD Date Reviewed COLST On File at [facility] COLST Date Scanned Code Status Resuscitation Status DNR/DNI Portal Pt does not currently have a portal and education provided: No Insurance Coverage/Financial Issues Insurance: [facility] Medicare Replacement ACO Member: No Care Team Visit Care Team Role Provider Type Alexandro Oreilly MD Primary Care Provider NON-[facility] STAFF PHYSICIAN Elijah Jasmine MD Other Providers [facility] STAFF PHYSICIAN FERNANDO Fuller Emergency Provider PHYSICIANS ASSISTANT Alonso Booker Admit Provider [facility] STAFF PHYSICIAN Attending Provider Discharge Potential Discharge Needs: PCP F/U Appt Anticipated Barriers to Discharge: None Identified Patient/Family Education Needs: Review discharge instructions, discuss Ask Me Three Transportation: Private vehicle Plan: Anticipate Trevon will be discharged home with no new services when medically cleared. He will follow up with his PCP and plan of care and transport with family. CM will follow and continue to support discharge planning concerns. PFSH All Active Problems (Updated 03/24/24 @ 12:29 by Michael Garcia MD) Discharge planning issues (Acute) DVT prophylaxis (Acute) Acute on chronic urinary retention (Acute) Acute renal failure (Acute) Elevated PSA (Acute) Hydronephrosis (Acute) Sensorineural hearing loss (Acute) Abnormal auditory perception of both ears (Acute) Maxillary sinusitis, chronic (Acute) Cyst of ear canal (Acute ~09/2023) Hypertension (Chronic) Carotid stenosis, right (Chronic 04/27/18) Medical History (Updated 03/24/24 @ 12:29 by Michael Garcia MD) Cerebrovascular accident (CVA) due to embolism of right middle cerebral artery (04/27/18) Hyperlipidemia Pre-diabetes Chronic frontal sinusitis Surgical History Inguinal hernia of left side without obstruction or gangrene History of tonsillectomy Family History (Updated 03/23/24 @ 23:00 by Alonso Booker) Father Alcohol abuse Stroke Sister Blind Social History (Updated 03/23/24 @ 23:01 by Alonso Booker) Smoking/Tobacco Use Status: Never Smoking risk assessment performed?: Yes Alcohol Intake: current Alcohol Intake frequency: holidays/special occasions only Substance use type: does not use Details: alcohol: jaleel Household members: none Housing: house Number of Children: 2 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 Dtr and BAKARI (who is OBGYN) live close SDOH(Care Management) Screening Will the Patient Participate in the Screening?: Unable to obtain Do you worry about having a steady place to live?: no In the past 12 months, have you had to go without electric, gas, oil or water in your home?: no Have you or anyone in your house had to go without enough food to eat?: no Has lack of transportation kept you from medical appointments or from doing things needed for daily living?: no Has anyone in your support network made you feel unsafe for any reason?: no
[2024-03-24] MEDS: Clopidogrel 75 MG TAB PO (09:07)
[2024-03-24] MEDS: Finasteride 5 MG TAB PO (09:07)
[2024-03-24] MEDS: Heparin 5,000 UNITS/ML VIAL 5000 UNITS SC ×2 (09:07→19:35)
--- NOTE | 2024-03-24 11:54 | PGE_ITS ---
Date of Service Date of service: 03/24/24 Time of Service: 11:54 Assessment and Plan Assessment and plan (1) Acute renal failure: Status: Acute Assessment and plan: Secondary to bladder outlet obstruction. Continue indwelling Shannon catheter monitoring urine output and repeat BMP in the morning. If his creatinine is below 3 tomorrow I think he be safely discharged with a repeat labs within 1 week and continued Shannon drainage. Issue is whether or not to continue the Proscar and Flomax. Flomax was discontinued last night by Dr. Booker Proscar was continued. Patient states he has been on the Proscar for about 4 months now. I will continue both and defer to Dr. Jasmine's discretion as to whether or not to continue this as an outpatient. Qualifiers: Acute renal failure type: unspecified Qualified Code(s): N17.9 - Acute kidney failure, unspecified (2) Acute on chronic urinary retention: Status: Acute Assessment and plan: As above (3) Gross hematuria: Status: Resolved Assessment and plan: Shannon now draining clear yellow urine no gross hematuria (4) Hypertension: Status: Chronic Assessment and plan: Patient states he has been on triamterene with hydrochlorothiazide for 40 years and it has controlled his blood pressure quite well. While we are currently holding this because of his acute on chronic renal insufficiency I think it would be reasonable to resume this once his creatinine is returned to its baseline level of 2 and then I would defer to his primary care provider Dr. Alexandro Oreilly is whether or not to switch him to an MICAH inhibitor or an ARB. Qualifiers: Hypertension type: primary hypertension Qualified Code(s): I10 - Essential (primary) hypertension (5) Cerebrovascular accident (CVA) due to embolism of right middle cerebral artery: Assessment and plan: Continue clopidogrel and high intensity statin. (6) DVT prophylaxis: Status: Acute Assessment and plan: heparin given low GFR (7) Discharge planning issues: Status: Acute Assessment and plan: Probable discharge tomorrow pending results of his BUN and creatinine Subjective Subjective Interval history since last seen: Mr. Givens denies any pain. He says yesterday he was in a lot of discomfort from the obstruction but since the Shannon catheter has been placed he is feeling much better. Previously had hematuria and now his urine appears to be clear. I discussed with Mr. Givens his options for long-term care of his chronic bladder outlet obstruction. He says he went over all this with Dr. Jasmine. This point since he has failed medication treatment of his BPH who is seeing me that his options would be either a TURP or TUNA versus chronic indwelling catheter either suprapubic or transurethral. I explained to him that transurethral catheter through the penis as some long-term complications and that his suprapubic catheter would be preferable if he is not can to pursue surgical intervention. He is asked when he can return home I told we would like to watch him 1 more day to make sure his creatinine continues to decline. His baseline creatinine is around 2.0. Exam Narrative Exam Narrative: Alert and oriented x 3 no acute distress denies any discomfort Abdomen nondistended soft no suprapubic tenderness Shannon catheter draining clear yellow urine Objective Last Vital Signs Temp 36.9 C 03/24/24 07:41 Pulse 54 L 03/24/24 07:41 Resp 16 03/24/24 07:41 BP 116/67 03/24/24 07:41 Pulse Ox 95 03/24/24 07:41 Laboratory Results - last 24 hr 03/23/24 03/23/24 03/24/24 17:33 17:54 05:46 WBC 4.15 L RBC 3.88 L Hgb 11.7 L Hct 35.0 L MCV 90 MCH 30.2 MCHC 33.4 RDW 12.8 Plt Count 131 MPV 11.0 Immature Gran % 0.5 Neutrophils % 77.4 Lymphocytes % 9.4 Monocytes % 11.3 Eosinophils % 0.7 Basophils % 0.7 Nucleated RBC % 0.0 Absolute Neutrophils 3.21 Absolute Lymphocytes 0.39 L Absolute Monocytes 0.47 Absolute Eosinophils 0.03 Absolute Basophils 0.03 Sodium 137 142 Potassium 4.6 4.3 Chloride 102 107 Carbon Dioxide 22.5 21.6 Anion Gap 12.5 H 13.4 H BUN 69 H 65 H Creatinine 3.9 H* 3.4 H Est GFR (CKD-EPI 2020) 14.49 17.09 Glucose 121 H 106 Calcium 8.5 8.2 L Magnesium 1.7 L Total Bilirubin 0.42 AST 33 ALT 43 Alkaline Phosphatase 97 Creatine Kinase 100 Troponin I < 50 Total Protein 7.6 Albumin 3.9 Lipase 38 Urine Color Yellow Urine Clarity Clear Urine pH 6.0 Ur Specific [place] 1.015 Urine Protein Negative Urine Ketones Negative Urine Blood Moderate H Urine Nitrite Negative Urine Bilirubin Negative Urine Urobilinogen 0.2 Ur Leukocyte Esterase Negative Urine RBC 20-50 H Urine WBC Negative Ur Epithelial Cells Negative Urine Crystals Negative Urine Bacteria Negative Urine Mucus Negative Ur Culture Indicated? No Ur Random Creatinine U Random Total Protein U [place] Prot/Creat Ratio Urine Glucose Negative 03/24/24 06:00 WBC RBC Hgb Hct MCV MCH MCHC RDW Plt Count MPV Immature Gran % Neutrophils % Lymphocytes % Monocytes % Eosinophils % Basophils % Nucleated RBC % Absolute Neutrophils Absolute Lymphocytes Absolute Monocytes Absolute Eosinophils Absolute Basophils Sodium Potassium Chloride Carbon Dioxide Anion Gap BUN Creatinine Est GFR (CKD-EPI 2020) Glucose Calcium Magnesium Total Bilirubin AST ALT Alkaline Phosphatase Creatine Kinase Troponin I Total Protein Albumin Lipase Urine Color Urine Clarity Urine pH Ur Specific [place] Urine Protein Urine Ketones Urine Blood Urine Nitrite Urine Bilirubin Urine Urobilinogen Ur Leukocyte Esterase Urine RBC Urine WBC Ur Epithelial Cells Urine Crystals Urine Bacteria Urine Mucus Ur Culture Indicated? Ur Random Creatinine 43.85 U Random Total Protein 14.6 U [place] Prot/Creat Ratio 0.33 Urine Glucose Time Spent with Patient Time Spent with Patient: 25-34 minutes Time was spent: preparing to see the patient(eg.review tests), ordering medications,tests, procedures, referring, communicating with other health care information associate, indepentently interpreting results, counseling the patient and care coordination
[2024-03-24] MEDS: Tamsulosin 0.4 MG CAPCR PO (12:47)
[2024-03-24 14:56] VITALS: BP 113/64; PULSE 60; RESP 17; TEMP 36.9; O2SAT 97
[2024-03-24] MEDS: Atorvastatin 40 MG TAB 80 MG PO (19:36)
[2024-03-24 23:31] VITALS: BP 107/57; PULSE 63; RESP 17; TEMP 36.8; O2SAT 97
[2024-03-25] VITALS (7 sets, daily range): BP systolic 74–137; BP diastolic 44–77; PULSE 50–64; RESP 18; TEMP 35.6–37.2; O2SAT 96–97
[2024-03-25 06:31] LABS: Abs Immature Grans 0.02 10^3/uL (0.0-0.06); Absolute Basophil Count 0.05 10^3/uL (0.0-0.2); Absolute Eosinophil Count 0.14 10^3/uL (0.0-0.7); Absolute Lymphocyte Count 0.75 10^3/uL (1.2-3.4); Absolute Neutrophil Count 1.99 10^3/uL (1.2-6.7); Basophils % 1.4 %; Eosinophils % 3.9 %; HCT 31.6 % (40.0-50.0); HGB 10.4 g/dL (13.5-17.5); Immature Grans % 0.6 %; Lymphocytes % 21.1 %; MCH 29.5 pg (27.0-33.0); MCHC 32.9 % (32.0-36.0); MCV 90 fL (80-95); MPV 12.2 fL (8.0-11.0); Monocytes % 16.9 %; Neutrophils % 56.1 %; Platelet Count 117 10^3/uL (130-400); RBC 3.52 10^6/uL (4.36-5.78); RDW 12.8 % (11.8-14.1); RDW-SD 42.2 fL; WBC 3.55 10^3/uL (4.4-10.8)
[2024-03-25 06:43] LABS: Anion Gap 10.8 mmol/L (3-11); BUN 64 mg/dL (7-18); CO2 22.2 mmol/L (21.0-32.0); CREATININE 3.1 mg/dL (0.70-1.30); Calcium 8.3 mg/dL (8.5-10.1); Chloride 106 mmol/L (98-107); Estimated GFR 19.09 (mL/min/1.73m2); Glucose 109 mg/dL (74-106); Potassium 4.2 mmol/L (3.5-5.1); Sodium 139 mmol/L (136-145)
[2024-03-25] MEDS: Finasteride 5 MG TAB PO (08:54)
[2024-03-25] MEDS: Clopidogrel 75 MG TAB PO (08:54)
[2024-03-25] MEDS: Tamsulosin 0.4 MG CAPCR PO (08:54)
[2024-03-25] MEDS: Heparin 5,000 UNITS/ML VIAL 5000 UNITS SC ×2 (08:55→20:56)
[2024-03-25] MEDS: Normal Saline Flush 10 ML SYR IVP (08:55)
--- NOTE | 2024-03-25 11:00 | RT.EKG_ITS ---
APPROVED REPORT Exam: Resting ECG Reason for Exam: near syncope Patient Location: I HR:53 bpm ECG Measurements Heart Rate 53 AXIS NC 193 P 27 QRSd 90 QRS 62 QT 436 T 99 QTc 410 Conclusion Sinus bradycardia...rate< 60 Nonspecific T abnormalities, lateral leads...T <-0.10mV, I aVL V5 V6
--- NOTE | 2024-03-25 11:15 | W.EVENT ---
Date of service: 03/25/24 Time of Service: 11:16 Event Note: Trevon had a near syncopal spell this morning sitting up in his chair talking with his daughter. I had seen him earlier this morning and he was feeling fine with no issues and we were preparing to discharge him today. He states that he had a sudden onset of feeling hot sweaty and lightheaded but no associated chest pain or pressure or palpitations and no dyspnea. His daughter leaned him back in the chair and put on the call light for the nurse and a rapid response was called. He was found to be bradycardic heart rate of 54 hypotensive with systolic pressure 74 he was placed with his head down and feet up and IV has been placed EKG has been done. EKG shows sinus bradycardia rate 54 no heart block. Repeat systolic pressure pressures 88 in the Trendelenburg position. IV has been started IV fluids will be done we will proceed with further workup with cardiac troponin and repeat CMP and CBC. Presume that this is either vasovagal episode or hypotension related to his Flomax. I have stopped his Flomax as well as his Proscar since it seems that he is going to have to have some kind of procedure in the future for his BPH and bladder outlet obstruction. Currently has a Shannon catheter in place draining clear yellow urine. Examination he is now alert and orient x 3 skin is diaphoretic lungs are clear to auscultation heart is regular but bradycardic no murmur rub abdomen soft nondistended nontender he has no focal motor or sensory deficits. Assessment and plan: #1 near syncope differential diagnosis ACS, medication induced hypotension, vasovagal episode. DC tamsulosin and give IV fluid bolus and check follow-up labs. Will keep on telemetry overnight and monitor vitals and telemetry and if no further episodes over the next 24 hours we will plan for discharge but keep him off of his tamsulosin. Time Spent with Patient Time spent in critical care(minutes): 30 Time Spent Included: Coordination of care, Time at immediate bedside, Discussing critically ill care with other medical staff and Discussing Hx and/or treatment with family
[2024-03-25] MEDS: Lactated Ringers 500 ML 1000 ML IV (11:28)
[2024-03-25 11:31] LABS: Abs Immature Grans 0.02 10^3/uL (0.0-0.06); Absolute Basophil Count 0.06 10^3/uL (0.0-0.2); Absolute Eosinophil Count 0.14 10^3/uL (0.0-0.7); Absolute Lymphocyte Count 1.03 10^3/uL (1.2-3.4); Absolute Monocyte Count 0.82 10^3/uL (0.1-0.8); Absolute Neutrophil Count 2.08 10^3/uL (1.2-6.7); Basophils % 1.4 %; Eosinophils % 3.4 %; HCT 32.3 % (40.0-50.0); HGB 10.7 g/dL (13.5-17.5); Immature Grans % 0.5 %; Lymphocytes % 24.8 %; MCH 29.8 pg (27.0-33.0); MCHC 33.1 % (32.0-36.0); MCV 90 fL (80-95); MPV 11.4 fL (8.0-11.0); Monocytes % 19.8 %; Neutrophils % 50.1 %; Platelet Count 110 10^3/uL (130-400); RBC 3.59 10^6/uL (4.36-5.78); RDW 12.8 % (11.8-14.1); RDW-SD 42.6 fL; WBC 4.15 10^3/uL (4.4-10.8)
[2024-03-25 11:43] LABS: ALT 56 U/L (16-63); AST 41 U/L (15-37); Albumin 3.5 g/dL (3.4-5.0); Alkaline Phosphatase 92 U/L (46-116); Anion Gap 11.8 mmol/L (3-11); BUN 66 mg/dL (7-18); CO2 23.2 mmol/L (21.0-32.0); CREATININE 3.3 mg/dL (0.70-1.30); Calcium 8.4 mg/dL (8.5-10.1); Chloride 103 mmol/L (98-107); Estimated GFR 17.71 (mL/min/1.73m2); Glucose 142 mg/dL (74-106); Sodium 138 mmol/L (136-145); Total Protein 6.8 g/dL (6.4-8.2); Troponin I < 50 ng/L (< or =60)
[2024-03-25] MEDS: Lactated Ringers 1,000 ML 100 ML IV (15:31)
[2024-03-25 15:59] LABS: Troponin I < 50 ng/L (< or =60)
[2024-03-25] MEDS: Atorvastatin 40 MG TAB 80 MG PO (20:57)
[2024-03-26] MEDS: Normal Saline Flush 10 ML SYR IVP ×2 (01:49→07:45)
[2024-03-26 03:40] VITALS: BP 127/93; PULSE 51; RESP 18; TEMP 36.6; O2SAT 97
[2024-03-26 07:14] LABS: Anion Gap 10.1 mmol/L (3-11); BUN 63 mg/dL (7-18); CO2 21.9 mmol/L (21.0-32.0); CREATININE 2.8 mg/dL (0.70-1.30); Calcium 8.1 mg/dL (8.5-10.1); Chloride 107 mmol/L (98-107); Estimated GFR 21.57 (mL/min/1.73m2); Glucose 109 mg/dL (74-106); Potassium 4.4 mmol/L (3.5-5.1); Sodium 139 mmol/L (136-145)
[2024-03-26 07:43] VITALS: BP 134/73; PULSE 53; RESP 18; TEMP 36.7; O2SAT 97
[2024-03-26] MEDS: Clopidogrel 75 MG TAB PO (07:44)
[2024-03-26] MEDS: Heparin 5,000 UNITS/ML VIAL 5000 UNITS SC (07:44)
[2024-03-26 09:38] LABS: HCT 29.8 % (40.0-50.0); HGB 9.9 g/dL (13.5-17.5)
--- NOTE | 2024-03-26 09:52 | DSE_ITS ---
Date of service: 03/26/24 Time of Service: 09:52 DS: Diagnosis Discharge Diagnosis (1) Acute on chronic urinary retention: Status: Acute Asessment and Plan: patient has hx of bladder outlet obstruction d/t BPH and had prior DREW d/t obstruction causing bilateral hydronephrosis and underwent cystoscopy (see Dr. Jasmine's notes from 10/25/23 and his consult note from 03/24/24. Patient had been put on Flomax but this has not made any difference in his symptoms and he presented w/ another episode of acute urinary retention w/ increase abdominal/pelvic discomfort which has resolved w/ placement of miranda catheter. Dr. Jasmine was consulted and discussed with the patient his surgical options, i.e. TURP vs SPC vs nonsurgical in which he has chronic indwelling miranda via transpenis. The patient wants to return home and consider his options. (2) Hydronephrosis: Status: Acute Asessment and Plan: bilateral hydronephrosis from bladder outlet obstruction, see above (3) Acute on chronic renal failure: Status: Acute Asessment and Plan: patient baseline creatinine1.9 vinod to 3.9 on admission and declined to 2.8 at time of his discharge. Unclear as to what his baseline BUN is since last one was done 06/06/21 when it was 20, all of his other renal labs in September and October and December 2023 have been creatinine levels w/out any BUN contributing to his DREW was patient was on bactrim when he presented to the hospital. this was not continued. (4) Gross hematuria: Status: Resolved Asessment and Plan: patient had gross hematuria when he was obstructed but this cleared after miranda placement. Urine culture only grew mixed GP kelly, patient has been on Bactrim prior to admission. he was not put on iv antibiotics. (5) Aortic stenosis: Status: Chronic Asessment and Plan: patient and his daughter were told that he needs an updated echocardiogram to evaluate severity of his aortic stenosis. (6) Hypertension: Status: Chronic Asessment and Plan: patient is usually on triamterene/HCTZ but this was held during this admission as his BP was low to normal and he had DREW. he has been instructed to continue to hold until he sees Dr. Alexandro Oreilly and his repeat BMP has been drawn next week. (7) Anemia: Status: Chronic Asessment and Plan: patient was found to be anemic w/ Hb of 11.7 gm which dropped to 9.9 gm, however, he had no further hematuria after admission and no other signs of bleeding. Unfortunately we do not have a baseline to compare since he was normal in 06/06/21. He may have some component of anemia of chronic kidney disease. Further workup has been ordered as outpatient next week including B12, folate and iron studies. (8) Near syncope: Status: Resolved Asessment and Plan: On the day prior to his dc, he had a near syncope episode while sitting in his chair. He did not pass out but became hot, diaphoretic, lightheaded w/ blurred vision but no other focal neurologic findings and his SBP was in the 70's. he was given bolus of LR intravenous fluid and recovered. IV fluids was run overnight and he was monitored on telemetry and serial troponin and EKG were done and no ischemia or injury was noted. He remained asymptomatic. His Flomax was stopped at this had not been helping his obstructive symptoms and may contribute to orthostasis given his aortic stenosis. Discharge Plan Disposition Patient Disposition: Home Condition: Improving Discharge Details Reason For Visit: Acute kidney injury Admit Date/Time: 03/23/24 20:33 Admit Provider: Alonso Booker Attending Provider: Alonso Booker Primary Care Provider: Alexandro Oreilly Home Meds and New Rx's Prescriptions: New finasteride 5 mg tablet 5 mg PO DAILY Qty: 30 0RF Continued triamcinolone acetonide 0.1 % cream 1 applic topical DAILY Qty: 80 0RF atorvastatin 80 mg tablet 80 mg PO DAILY Qty: 30 0RF clopidogrel [Plavix] 75 MG tablet 75 mg PO DAILY Qty: 30 0RF Held triamterene-hydrochlorothiazid 1 EACH tablet 1 tab-cap PO DAILY Hold Instructions: Resume on 04/03/24. hold triamterene w/ hydrochlorothiazide until you have repeat labs done next week and Dr. Oreilly tells you that it is ok to resume Discontinued tamsulosin [Flomax] 0.4 mg capsule 0.4 mg PO DAILY sulfamethoxazole-trimethoprim [Bactrim DS] 800-160 mg tablet 1 tab PO DAILY Qty: 30 0RF Discharge Instructions Instructions: How to Care for Your Miranda Catheter, Finasteride Additional Instructions: You were admitted due to acute hydronephrosis (dilation of the ureters and kidneys) this is caused by chronic bladder outlet obstruction d/t prostate enlargement. YOu were also found to have acute on chronic renal failure i.e. the lab work showed worsening BUN and creatinine due to the obstruction causing pressure on the kidneys. A miranda catheter was placed which has alleviated the obstruction. You have been on Flomax (tamsulosin) since October to try to alleviated the swelling in the prostate and the urethra that runs through the prostate but this has failed to prevent acute obstruction. Furthermore while on the Flomax you had a near syncope spell. You have known aortic stenosis (narrowing of the aortic valve which control blood flow from the heart to the aorta). Per our records this was last checked 03/28/2018 and was mild at that time. If you have not followed up w/ a act english tutor this year and have not had an updated echocardiogram (ultrasound of your heart) in the past year, you should do so. Aortic stenosis when it progresses to moderate or severe can predispose you to syncope or near syncope (passsing out) particularly if there is an acute change in the pressure gradients across the aortic valve such as when you have sudden changes in posture i.e. going from lying to standing too quickly or if you are medications that affect either the filling volume/pressure of the heart i.e. diuretics or medications that affect the pressure or flow above the valve such as certain medications that affect dilation of the vessels. Since the Flomax (tamsulosin) was not working to control the urinary outflow, and it may contribute to low blood pressures and therefore we have stopped this medication. However you have been given an prescription for Proscar (cesar steride) this medication over a prolonged period may help to shrink the prostatic tissue enough to improve urinary flow but may take several months. Please keep your appointment w/ Dr. Jasmine for follow up on your urinary symptoms and management of the miranda catheter. Call your act english tutor or your PCP to arrange follow up on the aortic stenosis and get a follow up echocardiogram done if this has not been done in the last year. We have ordered follow up labs to be done next week this includes follow up on your kidney function as well as follow up on your anemia (repeat blood count, iron studies and B12 and folate levels) I would recommend getting a multivitamin Stand Alone Forms: Nursing Discharge Form Referrals: Alexandro Oreilly MD [Primary Care Provider] - (Call office tomorrow morning for follow up in the next week. Call you act english tutor tomorrow as well to make a follow up.) Elijah Jasmine MD [ [facility] STAFF PHYSICIAN] - 04/04/24 8:00 am (keep previously scheduled follow up) Activity:: Activity as Tolerated Equipment/Supplies:: No Equipment Needed Diet:: Normal Diet Discharge Orders Discharge Orders: Discharge Order (Routine); Ordered 03/26/24 Ordered By: Michael Garcia Other Ambulatory Orders: Vitamin B12 (Routine) Timeframe: 5 Days Facility: [facility] - Location: Laboratory Outpatient - [facility] Ordered By: Michael Garcia Basic Metabolic Panel (Routine) Timeframe: 5 Days Facility: [facility] - Location: Laboratory Outpatient - [facility] Ordered By: Michael Garcia Complete Blood Count w/Diff (Routine) Timeframe: 5 Days Facility: [facility] - Location: Laboratory Outpatient - [facility] Ordered By: Michael Garcia Ferritin (Routine) Timeframe: 5 Days Facility: [facility] - Location: Laboratory Outpatient - [facility] Ordered By: Michael Garcia Folate (Routine) Timeframe: 5 Days Facility: [facility] - Location: Laboratory Outpatient - [facility] Ordered By: Michael Garcia Total Iron Binding Capacity (Routine) Timeframe: 5 Days Facility: [facility] - Location: [facility] Outpatient - [facility] Ordered By: Michael Garcia Iron (Routine) Timeframe: 5 Days Facility: [facility] - Location: [facility] Outpatient - [facility] Ordered By: Michael Garcia Discharge Data Discharge Date/Time-TO BE ENTERED AT DEPARTURE: 03/26/24 12:44 DS: Summary Time Spent with Patient providing and/or coordinating discharge services: Greater than 30 minutes Status at Discharge Functional status at discharge: independent ambulation Overall status at discharge: patient is progressing back to baseline Mental Status: mental status grossly normal Speech and Movement: speech and movement normal Mood: congruent mood Affect: normal affect Quality:SDOH Health Related Social Needs: No Data to Display Exam Narrative Exam Narrative: Trevon is feeling markedly better, no dyspnea or CP and no lightheadedness or near syncope BP is better today at 134/73 and HR in the 50's (telemetry review shows that he has been sinus bradycardia w/ HR of 47 to 67, 1st degree AV block, no advanced heart block and no pauses and no runs of ectopy) Lungs: clear heart: Regular, harsh grade 3/6 systolic crescendo/decrescendo murmur over aortic outflow and radiating to base of carotids Abdomen: soft, nontender, nondistended, normal bowel sounds Miranda catheter draining clear yellow urine Psych Mental Status: mental status grossly normal Speech and Movement: speech and movement normal Mood: congruent mood Affect: normal affect DS: Data Vitals/I&O Vitals and I&O: Vital Signs Temperature 36.7 C 03/26/24 07:43 Temperature Source Temporal Artery Scan 03/26/24 07:43 Pulse 53 L 03/26/24 07:43 Pulse Rhythm Regular 03/26/24 07:43 Pulse 60 03/23/24 20:50 Respiratory Rate 18 03/26/24 07:43 Respiratory Effort Normal, Non-Labored 03/26/24 07:43 Respiratory Depth Normal 03/26/24 07:43 Respiratory Pattern Normal 03/26/24 07:43 Blood Pressure 134/73 03/26/24 07:43 Blood Pressure Mean 80 03/23/24 19:46 Blood Pressure Position Sitting 03/23/24 18:00 Pulse Oximetry 97 03/26/24 07:43 Oxygen Delivery Method Room Air 03/26/24 07:43 Oxygen Flow Rate 0 03/26/24 07:43 Pain Level 0 03/26/24 07:43 Intake & Output 03/25/24 03/25/24 03/26/24 11:59 23:59 11:59 Intake Total 510 / 1560 1050 / 1560 1640 / 1640 Output Total 1100 / 3250 2150 / 3250 2099 / 2100 Balance -590 / -1690 -1100 / -1690 -460 / -460 Weight 80.2 kg 83.2 kg Intake: IV 510 / 520 10 / 520 1000 / 1000 Oral 1040 / 1040 640 / 640 Output: Urine 1100 / 3250 2150 / 3250 2099 / 2100 Other: Urine Color Yellow Yellow Yellow Urine Appearance Cloudy Cloudy Clear Data Completed and Pending Labs on day of discharge: Labs from last 24 hours 03/26/24 03/25/24 03/25/24 06:02 15:30 11:15 WBC 4.15 L RBC 3.59 L Hgb 9.9 L 10.7 L Hct 29.8 L 32.3 L MCV 90 MCH 29.8 MCHC 33.1 RDW 12.8 Plt Count 110 L MPV 11.4 H Immature Gran % 0.5 Neutrophils % 50.1 Lymphocytes % 24.8 Monocytes % 19.8 Eosinophils % 3.4 Basophils % 1.4 Nucleated RBC % 0.0 Absolute Neutrophils 2.08 Absolute Lymphocytes 1.03 L Absolute Monocytes 0.82 H Absolute Eosinophils 0.14 Absolute Basophils 0.06 Sodium 139 138 Potassium 4.4 4.0 Chloride 107 103 Carbon Dioxide 21.9 23.2 Anion Gap 10.1 11.8 H BUN 63 H 66 H Creatinine 2.8 H 3.3 H Est GFR (CKD-EPI 2020) 21.57 17.71 Glucose 109 H 142 H Calcium 8.1 L 8.4 L Total Bilirubin 0.40 AST 41 H ALT 56 Alkaline Phosphatase 92 Troponin I < 50 < 50 Total Protein 6.8 Albumin 3.5 PFSH All Active Problems (Updated 03/26/24 @ 15:52 by Michael Garcia MD) Acute on chronic renal failure (Acute) Aortic stenosis (Chronic) Anemia (Chronic) Discharge planning issues (Acute) DVT prophylaxis (Acute) Acute on chronic urinary retention (Acute) Acute renal failure (Acute) Elevated PSA (Acute) Hydronephrosis (Acute) Sensorineural hearing loss (Acute) Abnormal auditory perception of both ears (Acute) Maxillary sinusitis, chronic (Acute) Cyst of ear canal (Acute ~09/2023) Hypertension (Chronic) Carotid stenosis, right (Chronic 04/27/18) Medical History (Updated 03/26/24 @ 15:52 by Michael Garcia MD) Cerebrovascular accident (CVA) due to embolism of right middle cerebral artery (04/27/18) Hyperlipidemia Pre-diabetes Chronic frontal sinusitis Surgical History Inguinal hernia of left side without obstruction or gangrene History of tonsillectomy Family History (Updated 03/23/24 @ 23:00 by Alonso Booker) Father Alcohol abuse Stroke Sister Blind Social History (Updated 03/23/24 @ 23:01 by Alonso Booker) Smoking/Tobacco Use Status: Never Smoking risk assessment performed?: Yes Alcohol Intake: current Alcohol Intake frequency: holidays/special occasions only Substance use type: does not use Details: alcohol: jaleel Household members: none Housing: house Number of Children: 2 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 Dtr and BAKARI (who is OBGYN) live close Time Spent with Patient Time Spent with Patient: 45-69 minutes Time was spent: preparing to see the patient(eg.review tests), ordering medications,tests, procedures, referring, communicating with other health managed care coordinator, indepentently interpreting results, counseling the patient and care coordination
[2024-03-26 11:19] VITALS: BP 111/61; PULSE 60; RESP 17; TEMP 36.7; O2SAT 98
--- NOTE | 2024-03-26 11:31 | NUR.NOTE ---
Nursing Note: pt tolerating ambulating in halls with standby assist, using walker for support
--- NOTE | 2024-03-26 16:06 | PDOC.CMDIS ---
Date of service: 03/26/24 Time of Service: 16:06 LACE Index Scoring Tool Questions: Length of Stay (in days): 3 Was the patient admitted via the E.D.?: Yes Comorbidities: Cerebrovascular Disease and Liver or Renal Disease E.D. Visits: 1 Answers: Total Score: 12 Risk of Readmission: High Risk Care Management Discharge Plan Reason for Hospitalization: urinary retention Discharge Plan: Trevon will be discharged home with no new services. He will follow up with his PCP, Urology and plan of care and transport with family. Trevon was provided with a walker at discharge as he has had syncopal episodes and increased weakness recently. Patient/Family Education Needs: Review discharge instructions, discuss Ask Me Three SDND Health Related Social Needs: No Data to Display
== END 2024-03-26 12:44 | disposition home or self-care (01) ==
LOC: ER 19:32 → MS 21:15
PROVIDERS: Internal Medicine; Admitting Provider Family Medicine; Emergency Provider Physician Assistant; PCP Family Medicine; Visit Provider Family Medicine
DX: N17.9 Acute kidney failure, unspecified (principal); N13.39 Other hydronephrosis; R31.0 Gross hematuria; N32.0 Bladder-neck obstruction; R33.9 Retention of urine, unspecified; I12.9 Hypertensive chronic kidney disease with stage 1 through stage 4 chronic kidney disease, or unspecified chronic kidney disease; D64.9 Anemia, unspecified; N18.9 Chronic kidney disease, unspecified; I35.0 Nonrheumatic aortic (valve) stenosis; I65.21 Occlusion and stenosis of right carotid artery; J32.0 Chronic maxillary sinusitis; E78.5 Hyperlipidemia, unspecified; R73.03 Prediabetes; R55 Syncope and collapse; R00.1 Bradycardia, unspecified
CPT/HCPCS: 00123; 36415; 80048; 80053; 82550; 83690; 93005; 96360; 96361; 96372; 99222; 99285; 71046; 74176; 81003; 81015; 82565; 83735; 84156; 84484; 85014; 85018; 85025; 93010; 99231; 99239; 99291; G0378; J1644

== ENCOUNTER 2024-03-23 20:55 | Outpatient (REF) | payer MEDICARE, SELFPAY ==
[2024-03-23 21:39] LABS: Bacteria Rare HPF (Negative); C & S Indicated? C&S Done As Ordered; Casts Negative LPF (Negative); Crystals Negative HPF (Negative); Epithelial Cells Negative HPF (Negative); Mucus Negative (Negative); RBC 20-50 HPF (0-2)
== END 2024-03-23 20:56 | disposition home or self-care (01) ==
LOC: LBN 20:55
PROVIDERS: PCP Family Medicine; Visit Provider Physician Assistant Medical
DX: R10.9 Unspecified abdominal pain (principal); R82.998 Other abnormal findings in urine
CPT/HCPCS: 81015; 87086

== ENCOUNTER → 2024-03-24 06:49 | Outpatient (BNVA) | payer MEDICARE, SELFPAY | PROVIDERS: PCP Family Medicine; Referring Provider Family Medicine; Visit Provider Urology ==

== ENCOUNTER 2024-03-28 09:48 | Outpatient (CLI) | payer MEDICARE, SELFPAY ==
[2024-03-28 10:30] LABS: Abs Immature Grans 0.05 10^3/uL (0.0-0.06); Absolute Basophil Count 0.08 10^3/uL (0.0-0.2); Absolute Eosinophil Count 0.22 10^3/uL (0.0-0.7); Absolute Lymphocyte Count 1.13 10^3/uL (1.2-3.4); Absolute Monocyte Count 0.83 10^3/uL (0.1-0.8); Absolute Neutrophil Count 4.01 10^3/uL (1.2-6.7); Basophils % 1.3 %; Eosinophils % 3.5 %; HCT 32.3 % (40.0-50.0); HGB 10.7 g/dL (13.5-17.5); Immature Grans % 0.8 %; Lymphocytes % 17.9 %; MCH 29.9 pg (27.0-33.0); MCHC 33.1 % (32.0-36.0); MCV 90 fL (80-95); MPV 10.7 fL (8.0-11.0); Monocytes % 13.1 %; Neutrophils % 63.4 %; Platelet Count 169 10^3/uL (130-400); RBC 3.58 10^6/uL (4.36-5.78); RDW 12.7 % (11.8-14.1); RDW-SD 42.4 fL; WBC 6.32 10^3/uL (4.4-10.8)
[2024-03-28 11:45] LABS: Iron 120 ug/dL (65-175); Total Iron Binding Capacity 214 ug/dL (250-450)
[2024-03-28 12:10] LABS: Anion Gap 7.5 mmol/L (3-11); BUN 63 mg/dL (7-18); CO2 27.5 mmol/L (21.0-32.0); CREATININE 2.4 mg/dL (0.70-1.30); Calcium 8.9 mg/dL (8.5-10.1); Chloride 105 mmol/L (98-107); Estimated GFR 25.96 (mL/min/1.73m2); Ferritin 900 ng/mL (26-388); Glucose 99 mg/dL (74-106); Potassium 4.9 mmol/L (3.5-5.1); Sodium 140 mmol/L (136-145); Vitamin B12 599 pg/mL (193-986)
[2024-03-28 19:36] LABS: PSA, Diagnostic 10.9 ng/mL (<=6.5)
== END 2024-03-28 09:49 | disposition home or self-care (01) ==
LOC: LBO 09:49
PROVIDERS: Internal Medicine; PCP Family Medicine; Visit Provider Urology
DX: R97.20 Elevated prostate specific antigen [PSA] (principal); D64.9 Anemia, unspecified; N17.9 Acute kidney failure, unspecified
CPT/HCPCS: 36415; 80048; 82607; 82728; 82746; 83540; 83550; 84153; 85025

== ENCOUNTER 2024-04-04 04:49 | Outpatient (CLI) | payer MEDICARE, SELFPAY ==
[2024-04-04 08:49] LABS: CREATININE 2.6 mg/dL (0.70-1.30); Estimated GFR 23.58 (mL/min/1.73m2)
== END 2024-04-04 04:50 | disposition home or self-care (01) ==
LOC: LBO 04:49
PROVIDERS: PCP Family Medicine; Visit Provider Urology
DX: N17.9 Acute kidney failure, unspecified (principal); N18.9 Chronic kidney disease, unspecified; N13.30 Unspecified hydronephrosis
CPT/HCPCS: 36415; 82565

== ENCOUNTER → 2024-04-11 10:17 | Outpatient (BNVA) | payer MEDICARE, SELFPAY | PROVIDERS: PCP Family Medicine; Referring Provider Family Medicine; Visit Provider Urology | DX: R33.8 Other retention of urine (principal); N17.9 Acute kidney failure, unspecified; N18.9 Chronic kidney disease, unspecified; R97.20 Elevated prostate specific antigen [PSA] | CPT/HCPCS: 76775 ==

== ENCOUNTER 2024-04-14 01:35 | Outpatient (CLI) | payer MEDICARE, SELFPAY ==
--- NOTE | 2024-04-19 13:07 | TELEFU_ITS ---
Date of service: 04/14/24 Time of Service: 14:00 Nutrition Note NOTE: Trevon arrives with his daughter. Rosanna, for nutrition visit to focus on new dx of prediabetes with existing stage 3b chronic kidney disease. Pt is 84yo male who was 83.461kg and 70 at his last visit with provider 03/27 03/20. This translates to a BMI of 26.4, which I would assess as desirable at patients current age. Current estimated energy needs: 1989kcals (REEx1.3AF) -recommendations given today based off rounded 1900kcals. Suggested 40% of kcals from CHO or 190 grams (1215-gram servings when CHO counting. 67-71.25g protein (.8g/kg-15%of kcals) - suggested ~70g as goal. and 1900mL fluid (1mL per required kcal) Highlighted numbersthat matter most and areas to concerntrate menu planning around: -keeping added sugar intake to 30g or less -keeping sodium intake <2000mg as much as possible -keeping fiber intake up to 25g or more -watching out for high potassium, sodium and phosphorus foods and additives We reviewed materials outlining potassium and general eating guidelines with sample menu for CKD stages 3-5 not on dialysis. We reviewed materials for cho counting and stressed good quatlity carbs with lower glycemic index/higher fiber choices and getting more of his protein needs met via plant protein like legumes, whole soy, nuts and seeds and high protein grains like oats and quinoa, We discussed some menu planning tips and samples and Rosanna and Trevon took my contact info should they have questions or need follow up for help menu planning more or need more resources, Time Spent in Nutritional Counseling and Treatment: 40 minutes
== END 2024-04-14 01:36 | disposition home or self-care (01) ==
LOC: DS 01:36
PROVIDERS: PCP Family Medicine; Visit Provider Dietitian, Registered
DX: N18.32 Chronic kidney disease, stage 3b (principal); R73.03 Prediabetes; Z71.3 Dietary counseling and surveillance
CPT/HCPCS: 00123; 97802

== ENCOUNTER 2024-04-27 15:11 | Outpatient (CLI) | payer MEDICARE, SELFPAY | END 2024-04-27 15:12 | disposition home or self-care (01) | LOC: LBO 15:12 | PROVIDERS: PCP Family Medicine; Visit Provider Urology | DX: Z01.818 Encounter for other preprocedural examination (principal) | CPT/HCPCS: 36415; 86850; 86900; 86901 ==

== ENCOUNTER 2024-05-01 06:06 | Observation (INO) | payer MEDICARE, SELFPAY ==
[2024-05-01] VITALS (46 sets, daily range): BP systolic 72–175; BP diastolic 37–65; PULSE 34–63; RESP 10–21; TEMP 35.5–36.5; O2SAT 95–99; BMI 26.4
--- NOTE | 2024-05-01 06:20 | ANES.PREOP_ITS ---
General Info Date of Service Date Performed: 05/01/24 Height: 5 ft 10 in Weight: 83.461 kg Body Mass Index (BMI): 26.4 Surgical Procedure: Operation Date: 05/01/24 07:40 Proposed Procedure Side Surgeon p Cystoscopy/Retrograde w/Stent Placement/Transurethral Resection Prostate Right Elijah Jasmine MD Meds Allergies and Home Medications Allergies Allergy/AdvReac Type Severity Reaction Status Date / Time No Known Allergies Allergy Verified 05/01/24 06:25 Home Medication ?Medication ?Instructions ?Recorded triamterene 37.5 1 tab-cap PO DAILY 04/27/18 mg-hydrochlorothiazide 25 mg tablet atorvastatin 80 mg tablet 80 mg PO DAILY #30 tabs 03/26/24 clopidogrel 75 mg tablet (Plavix) 75 mg PO DAILY #30 tabs 03/26/24 triamcinolone acetonide 0.1 % 1 applic topical DAILY #80 grams 03/26/24 topical cream finasteride 5 mg tablet 5 mg PO DAILY #90 tabs 04/11/24 lisinopril 5 mg tablet 5 mg PO DAILY 04/28/24 Current Visit Medications: Current Medications Generic Name Dose Route Start Last Admin Trade Name Freq PRN Reason Stop Dose Admin Ringer's Solution 1,000 mls @ 80 mls/hr 05/01/24 06:00 IV 05/28/24 23:59 INFUSION CHARLEY Cefazolin Sodium/Dextrose 2 gm in 50 mls @ 100 mls/hr 05/01/24 06:00 Ancef Duplex IVPB 05/28/24 23:59 PREOP CHARLEY IV Miscellaneous Supplies 1 each 05/01/24 06:00 Iv Access IV 05/28/24 23:59 DIRECTED CHARLEY Sodium Chloride 0 ml 05/01/24 06:00 Normal Saline Flush 10 Ml Syr IV 05/28/24 23:59 PRN PRN Sodium Chloride 0 ml 05/01/24 06:00 Normal Saline 10 Ml Vial IJ 05/28/24 23:59 DIRECTED PRN Sterile Water 0 ml 05/01/24 06:00 Water,Injection,Sterile 10 Ml Vial IJ 05/28/24 23:59 DIRECTED PRN PFSH Active Problems Active Problems: Problem Status Onset Code Acute on chronic renal failure Acute N17.9, N18.9 Near syncope Resolved R55 Aortic stenosis Chronic I35.0 Anemia Chronic D64.9 Acute on chronic urinary retention Acute R33.9 Acute renal failure Acute N17.9 Elevated PSA Acute R97.20 Hydronephrosis Acute N13.30 Sensorineural hearing loss Acute H90.5 Abnormal auditory perception of both ears Acute H93.293 Maxillary sinusitis, chronic Acute J32.0 Cyst of ear canal Acute ~09/2023 Q18.1 Hypertension Chronic I10 Carotid stenosis, right Chronic 04/27/18 I65.21 Medical History Medical History (Updated 04/28/24 @ 11:32 by Chu Sheth) Orthostatic hypotension Per pt. daughter move him slowly Cerebrovascular accident (CVA) due to embolism of right middle cerebral artery ( 04/27/18) 2018-per dtr no residual effects Hyperlipidemia Pre-diabetes Chronic frontal sinusitis Surgical History Surgical History Inguinal hernia of left side without obstruction or gangrene History of tonsillectomy Tobacco Smoking/Tobacco Use Status: Never Alcohol Alcohol Intake: current Alcohol intake frequency: holidays/special occasions only Substance Use Substance use type: does not use Vital Signs and Lab Results Vital Signs Most Recent Vital Signs in EMR: Temp Pulse Resp BP Pulse Ox 36.5 C 51 L 16 175/57 H 98 05/01/24 06:27 05/01/24 06:27 05/01/24 06:27 05/01/24 06:27 05/01/24 06:27 Lab Results Blood Type / Crossmatch: Antibody Screen NEGATIVE 04/27/24 Complete Blood Count: No Data to Display Complete Metabolic Panel: Creatinine 2.6 mg/dL (0.70-1.30) H 04/04/24 08:19 Est GFR (CKD-EPI 2020) 23.58 (mL/min/1.73m2) 04/04/24 08:19 Liver Function Panel: No Data to Display Coagulation Panel: No Data to Display Cardiac Panel: No Data to Display Arterial Blood Gas: No Data to Display Venous Blood Gas: No Data to Display Pancreas Panel: No Data to Display Thyroid Panel: No Data to Display Infectious Disease: No Data to Display Blood Cultures: No Data to Display Toxicology Panel: No Data to Display Imaging and Studies Imaging and Studies Study information below may be from another EMR and interpreted by another provider. Please see original notes in EMR for more complete details. EKG Summary: 03/20: sinus kiran. Echocardiogram Summary: 10/12/2023: EF 62%, aortic valve is trileaflet and moderately calcified. There is moderate aortic stenosis: valve area 1.1 cm2, peak pressure gradient 38.3mmHg, mean pressure gradient 23.1 mmHg. There are no other remarkable cardiac valve findings. Carotid Artery Summary:: 03/28/2018: IMPRESSION: No significant internal carotid artery stenosis. Anesthesia Assessment and Plan Anesthesia History Personal History: No History of Anesthesia Complications Family History: No Family History of Anesthesia Complications Exercise Tolerance Exercise Tolerance: Metabolic Equivalents>4 Cardiac & Pulmonary Exam Cardiac Exam: Normal S1/S2 Heart Sounds Pulmonary Exam: Clear Bilateral Breath Sounds Implantable Cardiac Device Does patient have a Pacemaker or an ICD?: No Airway Exam Known Difficult Airway: No Mallampati Class: 2 Mouth Opening: Normal (> 3cm) Thyromental Distance: Greater than 3 cm Neck Range of Motion: Full ROM Neck Circumference: Normal Teeth Condition: Normal Dentition ASA Classification ASA Score: ASA 3 Emergency Case?: No NPO Status NPO Status: NPO Clears >2 hours, Solids >8 hours Anesthesia Plan Resuscitation Status: Full Code Anesthesia Technique: General Anesthesia Airway Planned: LMA Monitors Used: Standard Monitors Preoperative Comments:: 84 yo male for cysto. Last procedure did well, but did have a near syncopal episode prior to discharge. Sig PMHx: AoV stenosis (stable at moderate. 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 never smoker, occ EtOH. Previous Anes: - prop, natural airway, phenyl gtt, no issues.
--- NOTE | 2024-05-01 06:54 | W.PM.HP.N ---
Date of service: 05/01/24 Time of Service: 06:54 Assessment and Plan Assessment and plan (1) Elevated PSA: Status: Acute (2) Hydronephrosis: Status: Acute (3) Acute on chronic renal failure: Status: Acute Assessment and plan: We will perform cystoscopy with transurethral resection of the prostate. This type of procedure should help alleviate the bladder outlet obstructive component of his urinary retention/renal insufficiency as well as obtain a tissue diagnosis for his elevated PSA. In the past, I was able to cannulate the right ureteral orifice, so I am planning on doing a right retrograde pyelogram and placing a right ureteral stent. I may attempt to place a left ureteral stent as well, but I was not successful in cannulating the left ureteral orifice at his previous procedure. History of Present Illness History of Present Illness Chief Complaint: Urinary retention Narrative: This is an 84-year-old gentleman who initially presented with left groin pain. He had a CT scan which showed bilateral hydronephrosis down to the ureteral orifice ease. The radiologist was concerned about distal ureteral lesions. I did a cystoscopy and was able to cannulate the right ureteral orifice. I was not able to cannulate the left ureteral orifice. I saw no bladder mass and his urine cytology showed no malignant cells. Since then, we have treated him with medical therapy to improve his bladder emptying. He has had progression of his renal insufficiency and hydronephrosis requiring an indwelling catheter. He presents now for cystoscopy with transurethral resection of his prostate in order to render him catheter free. Review of Systems Narrative: No fevers or chills Decreased hearing acuity. No vision change or dysphasia No diabetes or thyroid No shortness of breath, cough or hemoptysis No chest pain or palpitations No nausea, vomiting, hepatitis, ulcers, jaundice No seizures, strokes or peripheral neuropathy No bleeding disorders or anemia No gout PFSH All Active Problems (Updated 04/28/24 @ 11:32 by Chu Sheth) Acute on chronic renal failure (Acute) Aortic stenosis (Chronic) Anemia (Chronic) Acute on chronic urinary retention (Acute) Acute renal failure (Acute) Elevated PSA (Acute) Hydronephrosis (Acute) Sensorineural hearing loss (Acute) Abnormal auditory perception of both ears (Acute) Maxillary sinusitis, chronic (Acute) Cyst of ear canal (Acute ~09/2023) Hypertension (Chronic) Carotid stenosis, right (Chronic 04/27/18) Medical History (Updated 04/28/24 @ 11:32 by Chu Sheth) Orthostatic hypotension Per pt. 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) 2018-per dtr no residual effects Hyperlipidemia Pre-diabetes Chronic frontal sinusitis Surgical History Inguinal hernia of left side without obstruction or gangrene History of tonsillectomy Family History (Updated 03/23/24 @ 23:00 by Alonso Booker) Father Alcohol abuse Stroke Sister Blind Social History (Updated 03/23/24 @ 23:01 by Alonso Booker) Smoking/Tobacco Use Status: Never Smoking risk assessment performed?: Yes Alcohol Intake: current Alcohol Intake frequency: holidays/special occasions only Substance use type: does not use Household members: none Housing: house Number of Children: 2 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 What is your relationship status?: Panel score (0-1 are the most socially isolated patients): 0 Meds Allergies and Home Medications Allergies Allergy/AdvReac Type Severity Reaction Status Date / Time No Known Allergies Allergy Verified 05/01/24 06:25 Home Medications ?Medication ?Instructions ?Recorded ?Confirmed ?Type triamterene 37.5 1 tab-cap PO DAILY 04/27/18 04/28/24 History mg-hydrochlorothiazide 25 mg tablet atorvastatin 80 mg tablet 80 mg PO DAILY #30 tabs 03/26/24 05/01/24 Rx clopidogrel 75 mg tablet (Plavix) 75 mg PO DAILY #30 tabs 03/26/24 04/28/24 Rx triamcinolone acetonide 0.1 % 1 applic topical DAILY #80 grams 03/26/24 05/01/24 Rx topical cream finasteride 5 mg tablet 5 mg PO DAILY #90 tabs 04/11/24 04/28/24 Rx lisinopril 5 mg tablet 5 mg PO DAILY 04/28/24 05/01/24 History Exam Const General: cooperative Neck Neck: supple Resp Effort & Inspection: normal respiratory effort Auscultation: clear to auscultation bilaterally Cardio Rate: regular rate Rhythm: regular rhythm GI Palpation: soft and no masses Meatus: other (miranda catheter in place) Neuro General: patient alert, patient awake and patient oriented x3 Results Last Vital Signs Temp 36.5 C 05/01/24 06:27 Pulse 51 L 05/01/24 06:27 Resp 16 05/01/24 06:27 BP 175/57 H 05/01/24 06:27 Pulse Ox 98 05/01/24 06:27 Time Spent Time spent with Patient: <40 minutes Time was spent: other
[2024-05-01] MEDS: Lactated Ringers 1,000 ML 80 ML IV (07:15)
[2024-05-01] MEDS: ceFAZolin 2 GM/50 ML BAG IVPB (07:43)
[2024-05-01] MEDS: Lidocaine 2% Jelly 6 ML SYR (08:10)
--- NOTE | 2024-05-01 08:53 | DI.RAD_ITS ---
Exam(s) XR RETROGRADE IN OR EXAM: XR RETROGRADE IN OR CLINICAL HISTORY: Acute on chronic renal failure. TECHNIQUE: 2D digital imaging was performed. COMPARISON: No exams were available for comparison FINDINGS: Fluoroscopy provided during urologic procedure. See procedure report for details. Total fluoroscopy time 58 seconds IMPRESSION: Radiation exposure index/cumulative dose: Bobbyr= 13.026mGy DATA REPOSITORY: RADIATION DOSE DELIVERED:
[2024-05-01] MEDS: Omnipaque 300 MG/ML 50 ML BTL (09:07)
--- NOTE | 2024-05-01 09:17 | PROST_PTH ---
PATIENT: Trevon Givens LOC: U#:[id number] AGE/SX: 84/M ROOM: [id number] RE05/01/[address]: Elijah Jasmine MD : 1940 BED: A DIS: 05/02/2024 SPEC #: [id number] RECD: 05/01/24 12:22 STATUS: XIMENA REQ #: [id number] EVANGELIST: 05/01/24 09:[address]: Elijah Jasmine DEPT: Surgical Specimen RECD BY: Chantelle Byrne ENTERED: 05/01/24 12:33 SP TYPE: PROST OTHR DR: Alexandro Oreilly Tissues: 1 - PROSTATE RESECTION Procedures: GROSS AND MICRO LEVEL 4 Comments: [id number]
--- NOTE | 2024-05-01 09:59 | ROE_ITS ---
Date of service: 05/01/24 Time of Service: 09:59 Operative Note Operative Note DATE OF PROCEDURE: 05/01/24 PRE-OP DIAGNOSIS: Urinary retention Elevated PSA Hydronephrosis POST-OP DIAGNOSIS: same PROCEDURE: Cystoscopy, bilateral retrograde pyelograms, insert right ureteral stent, attempted left ureteroscopy, transuretehral resection of prostate SURGEON: Elijah Jasmine ANESTHESIA TYPE: Local By Surgeon and General:No Airway Refer to Anesthesia Record ESTIMATED BLOOD LOSS: 150 PATHOLOGY: other (prostate tissue) COMPLICATIONS: None Patient was transported to: PACU Patient's condition: stable Implants: 7 Malaysian by 22 to 30 cm right ureteral stent 22 Malaysian coude tipped irrigating catheter with 30 cc sterile water in balloon Indications: This is an 84-year-old gentleman who initially presented with some left groin pain. He was evaluated in the emergency department and found to have bilateral hydronephrosis. We did a cystoscopy and bilateral retrograde pyelograms. He had narrowing of the distal ureters bilaterally with no bladder mass. I was able to place a catheter into the right ureter but not into the left side. His renal function and degree of hydronephrosis improved as we treated his bladder outlet. Over time, his renal function worsened and he developed urinary retention. Repeat imaging showed progression of his hydronephrosis. He was treated with an indwelling urethral catheter. He presents now for attempted stent placement bilaterally and transurethral resection of the prostate in an attempt to render him catheter free. Findings: Both ureters dilated-I was able to place a right ureteral stent, but I was not able to advance a wire above the left distal J hooking of the ureter Procedure Description: The patient was given IV antibiotics and brought to the operating room on 05/01/2024. After successful induction of general anesthesia, he was placed in the dorsal lithotomy position. His indwelling urethral catheter was removed. His genitalia was then prepped with Betadine. 2% Xylocaine jelly was instilled into the urethra to act as a local anesthetic. A 22 Malaysian rigid cystoscope was then passed through the urethra into the bladder. The urethra and bladder were inspected with the 30 degree lens. The pendulous, bulbar and membranous urethra appeared normal with no strictures. The prostatic urethra showed some lateral lobe enlargement but no significant median lobe. The bladder neck was entered and the bladder mucosa was inspected. The bladder was moderately trabeculated. I was able to visualize each ureteral orifice. I cannulated the right ureteral orifice with a 5 Malaysian access catheter and injected Omnipaque through the access catheter under fluoroscopic guidance. There was distal J hooking with narrowing of the ureter and the more proximal ureter was markedly dilated. I was able to maneuver a guidewire through the access catheter and up the ureter under fluoroscopic guidance I was then able to pass a 7 Malaysian variable length stent over the wire. The proximal end of the stent could be seen curled in the renal pelvis on fluoroscopy and the distal end was seen curled in the bladder with our cystoscope. I was then able to visualize the left ureteral orifice. I initially cannulated it with a 5 Malaysian access catheter and injected Omnipaque. I was able to visualize a significant distal J hooking and more proximal dilatation of the ureter. When I attempted to pass a guidewire through the lumen of the access catheter, the wire went down into the GA hooked area of the ureter but would not move more proximally. I then attempted to pass a semirigid ureteroscope into that segment of the ureter, but I was not able to maneuver a wire up the rest of the ureter. We then moved on to performing the transurethral resection of the prostate. I used an Play4test resectoscope and bipolar cautery to perform TURP from the bladder neck out to the verumontanum. The depth of the resection was down to the prostatic capsule. All resected tissue was evacuated and sent to pathology for permanent section. At the completion of the procedure, we utilized a vaporization button to cauterize the prostatic resection site. The bladder was then filled with irrigant. The resectoscope was removed. A 22 Malaysian hematuria catheter was passed through the urethra into the bladder. The catheter balloon was inflated with 30 cc of sterile water continuous bladder irrigation was begun. Traction was placed on the catheter until the irrigant became clear. The patient tolerated this procedure well with no complications. He was taken to the recovery room in stable condition.
[2024-05-01] MEDS: fentaNYL 100 MCG/2 ML VIAL IVP (10:35)
--- NOTE | 2024-05-01 10:37 | W.ANESPOSTOP ---
Postoperative Evaluation Date, Time and Location Date Performed: 05/01/24 Time Performed: 10:37 Patient Location: PACU Vital Signs Most Recent Imported Vital Signs: Most Recent Vital Signs Temp Pulse Resp BP Pulse Ox 36.3 C L 51 L 16 175/57 H 98 05/01/24 10:30 05/01/24 06:27 05/01/24 06:27 05/01/24 06:27 05/01/24 06:27 Pain Score Most Recent Pain Score: Most Recent Pain Score Pain Level 7 05/01/24 10:30 Assessment Mental Status: Awake (Alert & Oriented to Patient Baseline) Airway and Respiratory Function: Patent airway with normal (patient baseline) respiratory exam Cardiovascular Function: Hemodynamically Stable Hydration Status: Adequately Hydrated Nausea & Vomiting: No Nausea or Vomiting Pain: Pain is tolerable per patient Peripheral Nerve Block: Patient did not receive a nerve block
[2024-05-01] MEDS: traMADol 50 MG TAB PO (11:44)
[2024-05-01] MEDS: Lactated Ringers 1,000 ML 100 ML IV ×2 (11:46→23:23)
[2024-05-01] MEDS: ceFAZolin 1 GM/50 ML BAG IVPB ×2 (12:27→20:48)
[2024-05-01] MEDS: diphenhydrAMINE 25 MG CAP PO (22:35)
[2024-05-02] MEDS: ceFAZolin 1 GM/50 ML BAG IVPB (03:42)
[2024-05-02 07:09] VITALS: BP 153/67; PULSE 56; RESP 18; TEMP 37; O2SAT 96
[2024-05-02 07:21] LABS: Abs Immature Grans 0.07 10^3/uL (0.0-0.06); Absolute Basophil Count 0.03 10^3/uL (0.0-0.2); Absolute Lymphocyte Count 1.02 10^3/uL (1.2-3.4); Absolute Monocyte Count 1.36 10^3/uL (0.1-0.8); Basophils % 0.2 %; Eosinophils % 1.4 %; HCT 26.4 % (40.0-50.0); HGB 9.1 g/dL (13.5-17.5); Immature Grans % 0.5 %; Lymphocytes % 7.1 %; MCH 30.2 pg (27.0-33.0); MCHC 34.5 % (32.0-36.0); MCV 88 fL (80-95); MPV 11.2 fL (8.0-11.0); Monocytes % 9.5 %; Neutrophils % 81.3 %; Platelet Count 182 10^3/uL (130-400); RBC 3.01 10^6/uL (4.36-5.78); RDW 13.7 % (11.8-14.1); RDW-SD 43.9 fL; WBC 14.36 10^3/uL (4.4-10.8)
[2024-05-02 07:29] LABS: Absolute Neutrophil Count 11.67 10^3/uL (1.2-6.7)
[2024-05-02 07:38] LABS: Anion Gap 10.3 mmol/L (3-11); BUN 54 mg/dL (7-18); CO2 25.7 mmol/L (21.0-32.0); CREATININE 2.7 mg/dL (0.70-1.30); Calcium 8.8 mg/dL (8.5-10.1); Chloride 107 mmol/L (98-107); Estimated GFR 22.53 (mL/min/1.73m2); Glucose 104 mg/dL (74-106); Potassium 4.2 mmol/L (3.5-5.1); Sodium 143 mmol/L (136-145)
--- NOTE | 2024-05-02 07:39 | W.PM.PROGNOT ---
Date of Service Date of service: 05/02/24 Time of Service: 07:39 Assessment and Plan Assessment and plan (1) Acute on chronic renal failure: Status: Acute (2) Elevated PSA: Status: Acute (3) Hydronephrosis: Status: Acute (4) Acute on chronic urinary retention: Status: Acute Assessment and plan: He is doing well following his surgery. We will discontinue his bladder irrigation but restarted if the urine becomes bloody. If he does not require restarting his bladder irrigation, we should be able to discharge him later with his Shannon catheter in place. Subjective Subjective Interval history since last seen: He had a fairly comfortable night with no episodes of clot retention. He is tolerating oral nutrition and medications. Exam Narrative Exam Narrative: He looks well His vital signs are documented elsewhere He is awake and alert His urine is clear with slow bladder irrigation His hemoglobin is appropriate His renal function is not yet available this morning Objective Last Vital Signs Temp 37.0 C 05/02/24 07:09 Pulse 56 L 05/02/24 07:09 Resp 18 05/02/24 07:09 BP 153/67 H 05/02/24 07:09 Pulse Ox 96 05/02/24 07:09 Laboratory Results - last 24 hr 05/02/24 06:40 WBC 14.36 H RBC 3.01 L Hgb 9.1 L Hct 26.4 L MCV 88 MCH 30.2 MCHC 34.5 RDW 13.7 Plt Count 182 MPV 11.2 H Immature Gran % 0.5 Neutrophils % 81.3 Lymphocytes % 7.1 Monocytes % 9.5 Eosinophils % 1.4 Basophils % 0.2 Nucleated RBC % 0.0 Absolute Neutrophils 11.67 H Absolute Lymphocytes 1.02 L Absolute Monocytes 1.36 H Absolute Eosinophils 0.20 Absolute Basophils 0.03 Time Spent with Patient Time Spent with Patient: <25 minutes Time was spent: other
[2024-05-02] MEDS: Atorvastatin 40 MG TAB 80 MG PO (08:18)
[2024-05-02] MEDS: Lisinopril 5 MG TAB PO (08:18)
[2024-05-02] MEDS: Finasteride 5 MG TAB PO (08:18)
[2024-05-02] MEDS: Triamcinolone 0.1% CR 15 GM TUBE TP (08:20)
--- NOTE | 2024-05-02 09:28 | W.PM.DS.N ---
Date of service: 05/02/24 Time of Service: 09:28 DS: Diagnosis Discharge Diagnosis (1) Acute on chronic renal failure: Status: Acute (2) Elevated PSA: Status: Acute (3) Hydronephrosis: Status: Acute (4) Acute on chronic urinary retention: Status: Acute Discharge Plan Disposition Patient Disposition: Home Condition: Improving Discharge Details Reason For Visit: Urinary Retention Admit Date/Time: 05/01/24 06:06 Admit Provider: Elijah Jasmine Attending Provider: Elijah Jasmine Primary Care Provider: Alexandro Oreilly [facility] Course Hospital Course: The patient was admitted and taken to the operating room on 05/01/2024. He underwent cystoscopy and placement of a right ureteral stent. We also performed transurethral resection of his prostate. Following the surgery, he was maintained with continuous bladder irrigation overnight. On postoperative day #1, his irrigant remained transparent so it was discontinued. Without the bladder irrigation, his urine was still transparent. His post surgical hemoglobin and creatinine were stable. He has been able to tolerate oral nutrition and medications. He is deemed to be ready for discharge. Home Meds and New Rx's Prescriptions: Continued finasteride 5 mg tablet 5 mg PO DAILY Qty: 90 0RF triamterene-hydrochlorothiazid 1 EACH tablet 1 tab-cap PO DAILY triamcinolone acetonide 0.1 % cream 1 applic topical DAILY Qty: 80 0RF atorvastatin 80 mg tablet 80 mg PO DAILY Qty: 30 0RF lisinopril 5 mg tablet 5 mg PO DAILY Held clopidogrel [Plavix] 75 MG tablet 75 mg PO DAILY Qty: 30 0RF Hold Instructions: Resume on 05/08/24. Discharge Instructions Additional Instructions: Shannon catheter to drainage bag with catheter plug to the irrigation port Continue finasteride but do not refill the prescription as we will be stopping the medication shortly after his catheter removal Hold Plavix for 1 week-we will restart the medication once the catheter has been removed and the patient is urinating clear urine Follow-up 1 week for catheter removal Second appointment in 1 to 2 weeks to review the pathology results Okay to shower Activity:: No lifting over 10 pounds Equipment/Supplies:: Shannon catheter to drainag Diet:: As Tolerated Discharge Orders Discharge Orders: Discharge Order (Routine); Ordered 05/02/24 Ordered By: Elijah Jasmine DS: Summary Time Spent with Patient providing and/or coordinating discharge services: Less than 30 minutes Status at Discharge Functional status at discharge: independent ambulation Overall status at discharge: patient is progressing back to baseline Mental Status: mental status grossly normal Speech and Movement: speech and movement normal Mood: congruent mood Affect: normal affect Quality:SDOH Health Related Social Needs: No Data to Display Exam Psych Mental Status: mental status grossly normal Speech and Movement: speech and movement normal Mood: congruent mood Affect: normal affect DS: Data Vitals/I&O Vitals and I&O: Vital Signs Temperature 37.0 C 05/02/24 07:09 Temperature Source Tympanic 05/02/24 07:09 Pulse 56 L 05/02/24 07:09 Pulse Rhythm Regular 05/01/24 21:50 Pulse 46 L 05/01/24 10:57 Respiratory Rate 18 05/02/24 07:09 Respiratory Effort Normal 05/01/24 21:50 Respiratory Depth Normal 05/01/24 21:50 Respiratory Pattern Normal 05/01/24 21:50 Blood Pressure 153/67 H 05/02/24 07:09 Blood Pressure Mean 76 05/01/24 10:56 Pulse Oximetry 96 05/02/24 07:09 Respiratory End-tidal CO2 28 05/01/24 10:54 Oxygen Delivery Method Room Air 05/02/24 07:09 Oxygen Flow Rate 0 05/02/24 07:09 Pain Level 0 05/02/24 07:09 Intake & Output 05/01/24 05/01/24 05/02/24 11:59 23:59 11:59 Intake Total 1457.570 / 2657.570 1200 / 2657.570 50 / 50 Balance 1457.570 / 2657.570 1200 / 2657.570 50 / 50 Weight 83.6 kg Intake: IV 977.570 / 2177.570 1200 / 2177.570 50 / 50 Oral 480 / 480 Other: Urine Color Pale [place] Urine Appearance Clear Hematuria Hematuria Clots Emesis Description None Data Completed and Pending Labs on day of discharge: Labs from last 24 hours 05/02/24 06:40 WBC 14.36 H RBC 3.01 L Hgb 9.1 L Hct 26.4 L MCV 88 MCH 30.2 MCHC 34.5 RDW 13.7 Plt Count 182 MPV 11.2 H Immature Gran % 0.5 Neutrophils % 81.3 Lymphocytes % 7.1 Monocytes % 9.5 Eosinophils % 1.4 Basophils % 0.2 Nucleated RBC % 0.0 Absolute Neutrophils 11.67 H Absolute Lymphocytes 1.02 L Absolute Monocytes 1.36 H Absolute Eosinophils 0.20 Absolute Basophils 0.03 Sodium 143 Potassium 4.2 Chloride 107 Carbon Dioxide 25.7 Anion Gap 10.3 BUN 54 H Creatinine 2.7 H Est GFR (CKD-EPI 2020) 22.53 Glucose 104 Calcium 8.8 PFSH All Active Problems Acute on chronic renal failure (Acute) Aortic stenosis (Chronic) Anemia (Chronic) Acute on chronic urinary retention (Acute) Acute renal failure (Acute) Elevated PSA (Acute) Hydronephrosis (Acute) Sensorineural hearing loss (Acute) Abnormal auditory perception of both ears (Acute) Maxillary sinusitis, chronic (Acute) Cyst of ear canal (Acute ~09/2023) Hypertension (Chronic) Carotid stenosis, right (Chronic 04/27/18) Medical History Orthostatic hypotension Per pt. 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) 2018-per dtr no residual effects Hyperlipidemia Pre-diabetes Chronic frontal sinusitis Surgical History Inguinal hernia of left side without obstruction or gangrene History of tonsillectomy Family History Father Alcohol abuse Stroke Sister Blind Social History Smoking/Tobacco Use Status: Never Smoking risk assessment performed?: Yes Alcohol Intake: current Alcohol Intake frequency: holidays/special occasions only Substance use type: does not use Household members: none Housing: house Number of Children: 2 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
== END 2024-05-02 10:49 | disposition home or self-care (01) ==
LOC: PDS 09:52 → MS 11:22 → PDS 12:03
PROVIDERS: Admitting Provider Urology; PCP Family Medicine; Visit Provider Urology
PROC: 0VT08ZZ Resection of Prostate, Via Natural or Artificial Opening Endoscopic (ICD-10-PCS; CPT 52601; principal; 2024-05-01 07:30)
DX: R33.9 Retention of urine, unspecified (principal); R97.20 Elevated prostate specific antigen [PSA]; N13.30 Unspecified hydronephrosis; N17.9 Acute kidney failure, unspecified; N18.9 Chronic kidney disease, unspecified; I35.0 Nonrheumatic aortic (valve) stenosis; D64.9 Anemia, unspecified; I12.9 Hypertensive chronic kidney disease with stage 1 through stage 4 chronic kidney disease, or unspecified chronic kidney disease; I65.21 Occlusion and stenosis of right carotid artery
CPT/HCPCS: 52601; 52351; 52332; 36415; 80048; 88305; 96361; 96365; 96366; 74420; 85025; 88307; G0378; J0131; J0690; J1100; J2371; J2405; J2704; J3010; Q9967

== ENCOUNTER → 2024-05-08 08:23 | Outpatient (BNVA) | payer MEDICARE, SELFPAY | PROVIDERS: PCP Family Medicine; Referring Provider Family Medicine; Visit Provider Nurse Practitioner Gerontology | DX: N13.30 Unspecified hydronephrosis (principal); R33.8 Other retention of urine | CPT/HCPCS: 99213 ==

== ENCOUNTER 2024-05-08 14:15 | Outpatient (CLI) | payer MEDICARE, SELFPAY ==
[2024-05-08 10:49] LABS: BUN 38 mg/dL (7-18); CREATININE 2.1 mg/dL (0.70-1.30); Calcium 8.7 mg/dL (8.5-10.1); Chloride 100 mmol/L (98-107); Estimated GFR 30.47 (mL/min/1.73m2); Glucose 94 mg/dL (74-106); Potassium 4.1 mmol/L (3.5-5.1); Sodium 136 mmol/L (136-145)
== END 2024-05-08 14:16 | disposition home or self-care (01) ==
LOC: LBO 14:15
PROVIDERS: PCP Family Medicine; Visit Provider Family Medicine
DX: N18.32 Chronic kidney disease, stage 3b (principal)
CPT/HCPCS: 36415; 80048

== ENCOUNTER → 2024-05-15 10:54 | Outpatient (BNVA) | payer MEDICARE, SELFPAY | PROVIDERS: PCP Family Medicine; Referring Provider Family Medicine; Visit Provider Urology | DX: C61 Malignant neoplasm of prostate (principal); N13.30 Unspecified hydronephrosis | CPT/HCPCS: 99215 ==

== ENCOUNTER → 2024-06-26 09:58 | Outpatient (BNVA) | payer MEDICARE, SELFPAY | PROVIDERS: PCP Family Medicine; Referring Provider Family Medicine; Visit Provider Urology | DX: C61 Malignant neoplasm of prostate (principal); N13.30 Unspecified hydronephrosis | CPT/HCPCS: 99215 ==

== ENCOUNTER 2024-08-01 13:41 | Outpatient (CLI) | payer MEDICARE, SELFPAY ==
[2024-08-01 16:17] LABS: Anion Gap 10.8 mmol/L (3-11); BUN 48 mg/dL (7-18); CO2 26.2 mmol/L (21.0-32.0); CREATININE 2.3 mg/dL (0.70-1.30); Calcium 8.7 mg/dL (8.5-10.1); Chloride 109 mmol/L (98-107); Estimated GFR 27.32 (mL/min/1.73m2); Glucose 138 mg/dL (74-106); Potassium 4.1 mmol/L (3.5-5.1); Sodium 146 mmol/L (136-145)
== END 2024-08-01 13:42 | disposition home or self-care (01) ==
LOC: LBO 13:41
PROVIDERS: PCP Family Medicine; Visit Provider Urology
DX: C61 Malignant neoplasm of prostate (principal); N13.30 Unspecified hydronephrosis
CPT/HCPCS: 36415; 80048; 84153

== ENCOUNTER → 2024-08-10 10:57 | Outpatient (BNVA) | payer MEDICARE, SELFPAY | PROVIDERS: PCP Family Medicine; Visit Provider Urology | DX: C61 Malignant neoplasm of prostate (principal); N13.30 Unspecified hydronephrosis | CPT/HCPCS: 99213 ==

== ENCOUNTER 2024-09-04 06:03 | Day surgery (SDC) | payer MEDICARE, SELFPAY ==
[2024-09-04 06:16] VITALS: BP 147/71; PULSE 55; RESP 20; TEMP 36.5; O2SAT 97
[2024-09-04] MEDS: Normal Saline 500 ML 30 ML IV (06:51)
--- NOTE | 2024-09-04 06:54 | W.PM.HP.N ---
Date of service: 09/04/24 Time of Service: 06:55 Assessment and Plan Assessment and plan (1) Prostate cancer: Status: Chronic (2) Hydronephrosis: Assessment and plan: We will change his right ureteral stent. If by any chance I am now able to get a wire up the left ureter, I will place a left ureteral stent History of Present Illness History of Present Illness Chief Complaint: Hydronephrosis Narrative: This is an 84-year-old gentleman who was diagnosed as having metastatic adenocarcinoma of the prostate. He has bilateral ureteral obstructions related to his tumor. I was only able to get a retrograde stent in the right side. The left side remains hydronephrotic. He comes in to have his stent changed. He has no flank pain or gross hematuria. Review of Systems Narrative: No fevers or chills Decreased hearing acuity. No vision change or dysphasia No diabetes or thyroid dysfunction No shortness of breath, cough or hemoptysis No chest pain or palpitations No nausea, vomiting, hepatitis, ulcers, jaundice No seizures, strokes or peripheral neuropathy No bleeding disorders or anemia No gout PFSH All Active Problems Sensorineural hearing loss, bilateral (Acute) Prostate cancer (Chronic) Aortic stenosis (Chronic) Anemia (Chronic) Acute renal failure (Acute) Elevated PSA (Acute) Sensorineural hearing loss (Acute) Abnormal auditory perception of both ears (Acute) Maxillary sinusitis, chronic (Acute) Cyst of ear canal (Acute ~09/2023) Hypertension (Chronic) Carotid stenosis, right (Chronic 04/27/18) Medical History Orthostatic hypotension Per pt. 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) 2018-per dtr no residual effects Hyperlipidemia Pre-diabetes Chronic frontal sinusitis Surgical History Inguinal hernia of left side without obstruction or gangrene History of tonsillectomy Family History Father Alcohol abuse Stroke Sister Blind Social History Smoking/Tobacco Use Status: Never Smoking risk assessment performed?: Yes Alcohol Intake: current Alcohol Intake frequency: holidays/special occasions only Alcohol type: beer Substance use type: does not use Household members: none Housing: house Number of Children: 2 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 What is your relationship status?: Panel score (0-1 are the most socially isolated patients): 0 Do you feel safe at home: Yes Do you feel safe in your relationship?: Yes Meds Allergies and Home Medications Allergies Allergy/AdvReac Type Severity Reaction Status Date / Time No Known Allergies Allergy Verified 09/04/24 06:14 Home Medications ?Medication ?Instructions ?Recorded ?Confirmed ?Type atorvastatin 80 mg tablet 80 mg PO DAILY #30 tabs 03/26/24 09/04/24 Rx clopidogrel 75 mg tablet (Plavix) 75 mg PO DAILY #30 tabs 03/26/24 09/04/24 Rx triamcinolone acetonide 0.1 % 1 applic topical DAILY #80 grams 03/26/24 09/04/24 Rx topical cream lisinopril 5 mg tablet 5 mg PO DAILY 04/28/24 09/04/24 History Exam Const General: cooperative Neck Neck: supple Resp Effort & Inspection: normal respiratory effort Auscultation: clear to auscultation bilaterally Cardio Rate: regular rate Rhythm: regular rhythm GI Palpation: soft and no masses Neuro General: patient alert, patient awake and oriented Results Last Vital Signs Temp 36.5 C 09/04/24 06:16 Pulse 55 L 09/04/24 06:16 Resp 20 09/04/24 06:16 BP 147/71 H 09/04/24 06:16 Pulse Ox 97 09/04/24 06:16 Time Spent Time spent with Patient: <40 minutes Time was spent: other
--- NOTE | 2024-09-04 07:09 | W.ANESPRE ---
General Info Date of Service Date Performed: 09/04/24 Height: 5 ft 10 in Weight: 83.4 kg Body Mass Index (BMI): 26.4 Surgical Procedure: Operation Date: 09/04/24 07:40 Proposed Procedure Side Surgeon p Cystoscopy with Stent Insertion Right Elijah Jasmine MD Actual Procedure Side Surgeon p Cystoscopy with Stent Insertion Right Elijah Jasmine MD Pre-Op Diagnosis Post-Op Diagnosis (1) Prostate cancer: (2) Hydronephrosis: Meds Allergies and Home Medications Allergies Allergy/AdvReac Type Severity Reaction Status Date / Time No Known Allergies Allergy Verified 09/04/24 06:14 Home Medication ?Medication ?Instructions ?Recorded atorvastatin 80 mg tablet 80 mg PO DAILY #30 tabs 03/26/24 clopidogrel 75 mg tablet (Plavix) 75 mg PO DAILY #30 tabs 03/26/24 triamcinolone acetonide 0.1 % 1 applic topical DAILY #80 grams 03/26/24 topical cream lisinopril 5 mg tablet 5 mg PO DAILY 04/28/24 Current Visit Medications: Current Medications Generic Name Dose Route Start Last Admin Trade Name Freq PRN Reason Stop Dose Admin Cefazolin Sodium/Dextrose 2 gm in 50 mls @ 100 mls/hr 09/04/24 06:00 Ancef Duplex IVPB 10/01/24 23:59 PREOP CHARLEY Sodium Chloride 500 mls @ 30 mls/hr 09/04/24 06:05 09/04/24 06:51 Saline 500ml Bag IV 10/04/24 06:04 30 mls/hr INFUSION CHARLEY Administration IV Miscellaneous Supplies 1 each 09/04/24 06:00 Iv Access IV 10/01/24 23:59 DIRECTED CHARLEY Sodium Chloride 0 ml 09/04/24 06:00 Normal Saline Flush 10 Ml Syr IV 10/01/24 23:59 PRN PRN Sodium Chloride 0 ml 09/04/24 06:00 Normal Saline 10 Ml Vial IJ 10/01/24 23:59 DIRECTED PRN Sterile Water 0 ml 09/04/24 06:00 Water,Injection,Sterile 10 Ml Vial IJ 10/01/24 23:59 DIRECTED PRN PFSH Active Problems Active Problems: Problem Status Onset Code Sensorineural hearing loss, bilateral Acute H90.3 Prostate cancer Chronic C61 Near syncope Resolved R55 Aortic stenosis Chronic I35.0 Anemia Chronic D64.9 Acute renal failure Acute N17.9 Elevated PSA Acute R97.20 Sensorineural hearing loss Acute H90.5 Abnormal auditory perception of both ears Acute H93.293 Maxillary sinusitis, chronic Acute J32.0 Cyst of ear canal Acute ~09/2023 Q18.1 Hypertension Chronic I10 Carotid stenosis, right Chronic 04/27/18 I65.21 Medical History Medical History Orthostatic hypotension Per pt. 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) 2018-per dtr no residual effects Hyperlipidemia Pre-diabetes Chronic frontal sinusitis Surgical History Surgical History Inguinal hernia of left side without obstruction or gangrene History of tonsillectomy Tobacco Smoking/Tobacco Use Status: Never Alcohol Alcohol Intake: current Alcohol intake frequency: holidays/special occasions only Alcohol type: beer Substance Use Substance use type: does not use Vital Signs and Lab Results Vital Signs Most Recent Vital Signs in EMR: Most Recent Vital Signs Temp Pulse Resp BP Pulse Ox 36.5 C 55 L 20 147/71 H 97 09/04/24 06:16 09/04/24 06:16 09/04/24 06:16 09/04/24 06:16 09/04/24 06:16 Lab Results Blood Type / Crossmatch: No Data to Display Complete Blood Count: No Data to Display Complete Metabolic Panel: No Data to Display Liver Function Panel: No Data to Display Coagulation Panel: No Data to Display Cardiac Panel: No Data to Display Arterial Blood Gas: No Data to Display Venous Blood Gas: No Data to Display Pancreas Panel: No Data to Display Thyroid Panel: No Data to Display Infectious Disease: No Data to Display Blood Cultures: No Data to Display Toxicology Panel: No Data to Display Imaging and Studies Imaging and Studies Study information below may be from another EMR and interpreted by another provider. Please see original notes in EMR for more complete details. EKG Summary: 03/20: sinus kiran. Echocardiogram Summary: 10/12/2023: EF 62%, aortic valve is trileaflet and moderately calcified. There is moderate aortic stenosis: valve area 1.1 cm2, peak pressure gradient 38.3mmHg, mean pressure gradient 23.1 mmHg. There are no other remarkable cardiac valve findings. Carotid Artery Summary:: 03/28/2018: IMPRESSION: No significant internal carotid artery stenosis. Anesthesia Assessment and Plan Anesthesia History Personal History: No History of Anesthesia Complications Family History: No Family History of Anesthesia Complications Exercise Tolerance Exercise Tolerance: Metabolic Equivalents>4 Pertinent Negatives Pertinent Negatives: No Symptoms of GERD Cardiac & Pulmonary Exam Cardiac Exam: Normal S1/S2 Heart Sounds Pulmonary Exam: Clear Bilateral Breath Sounds Implantable Cardiac Device Does patient have a Pacemaker or an ICD?: No Airway Exam Known Difficult Airway: No Mallampati Class: 2 Mouth Opening: Normal (> 3cm) Thyromental Distance: Greater than 3 cm Neck Range of Motion: Full ROM Neck Circumference: Normal Teeth Condition: Normal Dentition ASA Classification ASA Score: ASA 3 Emergency Case?: No NPO Status NPO Status: NPO Clears >2 hours, Solids >8 hours Anesthesia Plan Resuscitation Status: Full Code Anesthesia Technique: General Anesthesia Airway Planned: Natural Airway Monitors Used: Standard Monitors
[2024-09-04 07:15] VITALS: BMI 26.4
[2024-09-04] MEDS: ceFAZolin 2 GM/50 ML BAG IVPB (07:30)
[2024-09-04] MEDS: Lidocaine 2% Jelly 6 ML SYR (07:48)
[2024-09-04] MEDS: Omnipaque 300 MG/ML 50 ML BTL (07:58)
--- NOTE | 2024-09-04 08:04 | W.PM.DSUDISC ---
Date of service: 09/04/24 Discharge Plan Disposition Patient Disposition: Home Discharge Details Reason For Visit: cystoscopy with stent change Attending Provider: Elijah Jasmine Primary Care Provider: Alexandro Oreilly Home Meds and New Rx's Prescriptions: No Action triamcinolone acetonide 0.1 % cream 1 applic topical DAILY Qty: 80 0RF atorvastatin 80 mg tablet 80 mg PO DAILY Qty: 30 0RF clopidogrel [Plavix] 75 MG tablet 75 mg PO DAILY Qty: 30 0RF lisinopril 5 mg tablet 5 mg PO DAILY Discharge Instructions Additional Instructions: followup 2 to 3 months with labwork ahead of time (lab orders already placed) Discharge Orders Discharge Orders: Discharge Order (Routine); Ordered 09/04/24 Ordered By: Elijah Jasmine DS: Diagnosis Discharge Diagnosis (1) Prostate cancer: Status: Chronic (2) Hydronephrosis:
--- NOTE | 2024-09-04 08:05 | DI.RAD_ITS ---
Exam(s) XR RETROGRADE IN OR EXAM: XR RETROGRADE IN OR CLINICAL HISTORY: 1) Prostate cancer: (2) Hydronephrosis:. TECHNIQUE: 2D digital imaging was performed. COMPARISON: No exams were available for comparison FINDINGS: Fluoroscopy provided during retrograde urologic procedure. See procedure report for details. Total fluoroscopy time 21 seconds IMPRESSION: Radiation exposure index/cumulative dose:Bobbyr=4.8248mGy DATA REPOSITORY: RADIATION DOSE DELIVERED:
--- NOTE | 2024-09-04 08:08 | ROE_ITS ---
Operative Note Operative Note PRE-OP DIAGNOSIS: Bilateral hydronephrosis due to prostate cancer POST-OP DIAGNOSIS: same PROCEDURE: cystoscopy, change right ureteral stent SURGEON: Elijah Jasmine ANESTHESIA TYPE: Local By Surgeon and General:No Airway Refer to Anesthesia Record ESTIMATED BLOOD LOSS: 5 PATHOLOGY: other COMPLICATIONS: None Patient was transported to: same day Patient's condition: stable Implants: 7 Lebanese by 22 to 30 cm right ureteral stent Indications: This is an 84-year-old gentleman who has a history of metastatic prostate cancer. He has bilateral ureteral obstructions. I was able to get a retrograde stent in the right kidney. I was unable to drain the left kidney. He had elected not to have a nephrostomy tube on the left. Since he is otherwise asymptomatic, he is not seeking any treatments for his prostate cancer. He comes in to have his right stent changed. We will again probe the left ureter to see if we can place a left ureteral stent in a retrograde manner. Findings: still unable to advance wire up left ureter Procedure Description: The patient was given preoperative antibiotics and brought to the operating room on 09/04/2024. After successful induction of general anesthesia without intubation, he was placed in the dorsal lithotomy position. His genitalia was prepped and draped. 2% Xylocaine jelly was instilled into the urethra to act as a local anesthetic. A 22 Lebanese rigid cystoscope was passed through the urethra into the bladder. The urethra and bladder were inspected with the 30 degree lens. The pendulous, bulbar and membranous urethra all appeared normal with no strictures. The prostatic urethra showed some fixation but no active bleeding was seen. The bladder neck was entered and the bladder mucosa was inspected. A stent could be seen protruding from the right ureteral orifice. A corresponding dimple in the left trigone which thought to be the left ureteral orifice. We initially grasped the right ureteral stent with an alligator forceps and brought the stent out to the level of the urethral meatus. A guidewire was passed through the lumen of the stent and the stent was removed leaving the wire in place. A ureteral access catheter was then advanced over the wire and the wire was removed. A retrograde pyelogram was then performed to outline the kidney and ureter anatomy. The wire was then replaced making sure that the wire was curled in the renal pelvis on the right side. The access catheter was removed. A 7 Lebanese variable length stent was advanced over the wire and the proximal end of the stent was positioned in the renal pelvis and the distal end was positioned in the bladder. We then attempted to probe the left ureteral orifice with a guidewire. We were unable to advance the wire so no left ureteral stent was placed. The bladder was emptied and the cystoscope was withdrawn. The patient tolerated the procedure well with no complications. Date of Procedure: 09/04/24
[2024-09-04 08:11] VITALS: BP 129/66; PULSE 55; RESP 20; TEMP 36.4; O2SAT 98
[2024-09-04 09:01] VITALS: BP 146/76; PULSE 56; RESP 20; TEMP 36.6; O2SAT 98
--- NOTE | 2024-09-04 09:14 | W.ANESPOSTOP ---
Postoperative Evaluation Date, Time and Location Date Performed: 09/04/24 Time Performed: 08:45 Patient Location: Day Surgery Unit Vital Signs Most Recent Imported Vital Signs: Most Recent Vital Signs Temp Pulse Resp BP Pulse Ox 36.6 C 56 L 20 146/76 H 98 09/04/24 09:01 09/04/24 09:01 09/04/24 09:01 09/04/24 09:01 09/04/24 09:01 Assessment Mental Status: Awake (Alert & Oriented to Patient Baseline) Airway and Respiratory Function: Patent airway with normal (patient baseline) respiratory exam Cardiovascular Function: Hemodynamically Stable Hydration Status: Adequately Hydrated Nausea & Vomiting: No Nausea or Vomiting Pain: Pt. Denies Any Pain Peripheral Nerve Block: Patient did not receive a nerve block
== END 2024-09-04 09:50 | disposition home or self-care (01) ==
PROVIDERS: PCP Family Medicine; Visit Provider Urology
PROC: (CPT 52332; principal; 2024-09-04 07:30)
DX: C61 Malignant neoplasm of prostate (principal); N13.1 Hydronephrosis with ureteral stricture, not elsewhere classified
CPT/HCPCS: 50385; 80385; 74420; J0690; J1100; J2405; J2704; Q9967

== ENCOUNTER → 2024-11-30 14:30 | Outpatient (BNVA) | payer MEDICARE, SELFPAY | PROVIDERS: PCP Family Medicine; Referring Provider Family Medicine; Visit Provider Urology | DX: C61 Malignant neoplasm of prostate (principal); R33.8 Other retention of urine | CPT/HCPCS: 99213 ==

== ENCOUNTER 2025-02-27 12:15 | Outpatient (REF) | payer MEDICARE, SELFPAY ==
[2025-02-27 15:31] LABS: HCT 34.1 % (40.0-50.0); HGB 10.9 g/dL (13.5-17.5); MCH 28.2 pg (27.0-33.0); MCV 88 fL (80-95); MPV 11.8 fL (8.0-11.0); Platelet Count 142 10^3/uL (130-400); RBC 3.86 10^6/uL (4.36-5.78); RDW 13.6 % (11.8-14.1); RDW-SD 44.3 fL; WBC 10.57 10^3/uL (4.4-10.8)
[2025-02-27 15:46] LABS: ALT 23 U/L (16-63); AST 18 U/L (15-37); Albumin 3.3 g/dL (3.4-5.0); Alkaline Phosphatase 107 U/L (46-116); Anion Gap 8.4 mmol/L (3-11); BUN 51 mg/dL (7-18); Bilirubin, Total 0.4 mg/dL (0.2-1.0); CO2 27.6 mmol/L (21.0-32.0); CREATININE 2.9 mg/dL (0.70-1.30); Calcium 8.4 mg/dL (8.5-10.1); Chloride 103 mmol/L (98-107); Estimated GFR 20.55 (mL/min/1.73m2); Glucose 101 mg/dL (74-106); Potassium 4.7 mmol/L (3.5-5.1); Sodium 139 mmol/L (136-145); Total Protein 6.9 g/dL (6.4-8.2)
== END 2025-02-27 12:16 | disposition home or self-care (01) ==
LOC: NCHCN 12:15
PROVIDERS: PCP Family Medicine; Visit Provider Family Medicine
DX: N18.4 Chronic kidney disease, stage 4 (severe) (principal)
CPT/HCPCS: 80053; 85027

== ENCOUNTER 2025-03-09 15:56 | Outpatient (CLI) | payer MEDICARE, SELFPAY ==
--- NOTE | 2025-03-09 | DI.RAD_ITS ---
Exam(s) XR FOOT LT COMPLETE EXAM: XR FOOT LT COMPLETE CLINICAL HISTORY: M79.675 Pain in lt toe(s). TECHNIQUE: 2D digital imaging was performed. COMPARISON: No exams were available for comparison FINDINGS: 3 views No evidence of acute fracture or diastasis of the Lisfranc joint. There are mild-moderate degenerative changes in the great toe metatarsophalangeal joint. There is a small corticated density off the medial aspect of this joint which does not have the appearance of an acute fracture fragment. Other MTP joints appear unremarkable. Mild degenerative changes in the tarsometatarsal joints. On the medial aspect of the foot there is an accessory ossicle adjacent to the navicular tuberosity. There is also an enthesophyte on the posterior calcaneus. IMPRESSION: No acute osseous findings in the foot. DATA REPOSITORY: RADIATION DOSE DELIVERED:
--- NOTE | 2025-03-09 17:24 | DI.VRAD_ITS ---
PROCEDURE INFORMATION: Exam: XR Left Foot Exam date and time: 03/09/2025 4:19 PM Age: 85 years old Clinical indication: Pain; Toes; Left TECHNIQUE: Imaging protocol: Radiologic exam of the left foot. Views: 3 or more views. COMPARISON: No relevant prior studies available. FINDINGS: Bones/joints: Degenerative changes of the D IP joints and the 1st metatarsal phalangeal joint. No evidence for acute bony Soft tissues: Unremarkable. Vasculature: Atherosclerotic disease. IMPRESSION: 1. Degenerative changes. 2. No acute bony findings. If clinical symptoms persist recommend followup film in 7-10 days. Dictated and Authenticated by: Shira Burch MD. Orderin Telma Menard MD
== END 2025-03-09 16:16 ==
LOC: DI 15:57
PROVIDERS: PCP Family Medicine; Visit Provider Physician Assistant Medical
DX: M79.675 Pain in left toe(s) (principal)
CPT/HCPCS: 73630

== ENCOUNTER 2025-03-22 06:03 | Day surgery (SDC) | payer MEDICARE, SELFPAY ==
[2025-03-22 06:16] VITALS: BP 175/75; PULSE 53; RESP 16; TEMP 36.6; O2SAT 98
[2025-03-22] MEDS: Lactated Ringers 1,000 ML 80 ML IV (06:40)
--- NOTE | 2025-03-22 06:44 | W.PM.HP.N ---
Date of service: 03/22/25 Time of Service: 06:44 Assessment and Plan Assessment and plan (1) Prostate cancer: Status: Chronic (2) Hydronephrosis: Assessment and plan: We will plan to exchange his ureteral stent History of Present Illness History of Present Illness Chief Complaint: Hydronephrosis Narrative: This is an 85-year-old gentleman who was diagnosed as having metastatic adenocarcinoma of the prostate. He has bilateral ureteral obstructions related to his tumor. I was only able to get a retrograde stent in the right side. The left side remains hydronephrotic. He comes in to have his stent changed. He has no flank pain or gross hematuria. Review of Systems Narrative: No fevers or chills Decreased hearing acuity. No vision change or dysphasia No diabetes or thyroid No shortness of breath, cough or hemoptysis No chest pain or palpitations No nausea, vomiting, hepatitis, ulcers, jaundice No seizures, strokes or peripheral neuropathy No bleeding disorders or anemia No gout PFSH All Active Problems Sensorineural hearing loss, bilateral (Acute) Prostate cancer (Chronic) Aortic stenosis (Chronic) Anemia (Chronic) Acute renal failure (Acute) Elevated PSA (Acute) Sensorineural hearing loss (Acute) Abnormal auditory perception of both ears (Acute) Maxillary sinusitis, chronic (Acute) Cyst of ear canal (Acute ~09/2023) Hypertension (Chronic) Carotid stenosis, right (Chronic 04/27/18) Medical History Orthostatic hypotension Per pt. 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) 2018-per dtr no residual effects Hyperlipidemia Pre-diabetes Chronic frontal sinusitis Surgical History Inguinal hernia of left side without obstruction or gangrene History of tonsillectomy Family History Father Alcohol abuse Stroke Sister Blind Social History Smoking/Tobacco Use Status: Never Smoking risk assessment performed?: Yes Alcohol Intake: current Alcohol Intake frequency: holidays/special occasions only Alcohol type: beer Drug use: Never Substance use type: does not use Household members: none Housing: house Number of Children: 2 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 What is your relationship status?: Panel score (0-1 are the most socially isolated patients): 0 Additional Social history: UTAP Meds Allergies and Home Medications Allergies Allergy/AdvReac Type Severity Reaction Status Date / Time No Known Allergies Allergy Verified 03/22/25 06:31 Home Medications ?Medication ?Instructions ?Recorded ?Confirmed ?Type atorvastatin 80 mg tablet 80 mg PO DAILY #30 tabs 03/26/24 03/22/25 Rx clopidogrel 75 mg tablet (Plavix) 75 mg PO DAILY #30 tabs 03/26/24 03/20/25 Rx triamcinolone acetonide 0.1 % 1 applic topical DAILY #80 grams 03/26/24 03/22/25 Rx topical cream lisinopril 5 mg tablet 5 mg PO DAILY 04/28/24 03/22/25 History acetaminophen 325 mg capsule 325 mg PO Q6H PRN 03/22/25 03/22/25 History Exam Const General: cooperative Neck Neck: supple Resp Effort & Inspection: normal respiratory effort Auscultation: clear to auscultation bilaterally Cardio Rate: regular rate Rhythm: regular rhythm GI Inspection: normal to inspection Palpation: soft Neuro General: patient alert, patient awake and patient oriented x3 Results Last Vital Signs Temp 36.6 C 03/22/25 06:16 Pulse 53 L 03/22/25 06:16 Resp 16 03/22/25 06:16 BP 175/75 H 03/22/25 06:16 Pulse Ox 98 03/22/25 06:16 Time Spent Time spent with Patient: <40 minutes Time was spent: other
--- NOTE | 2025-03-22 07:03 | W.ANESPRE ---
General Info Date of Service Date Performed: 03/22/25 Height: 5 ft 10 in Weight: 84.1 kg Body Mass Index (BMI): 26.6 Surgical Procedure: Operation Date: 03/22/25 07:40 Proposed Procedure Side Surgeon p Cystoscopy/Change RT Stent/Possible LT Retrograde Bilateral Elijah Jasmine MD Meds Allergies and Home Medications Allergies Allergy/AdvReac Type Severity Reaction Status Date / Time No Known Allergies Allergy Verified 03/22/25 06:31 Home Medication ?Medication ?Instructions ?Recorded atorvastatin 80 mg tablet 80 mg PO DAILY #30 tabs 03/26/24 clopidogrel 75 mg tablet (Plavix) 75 mg PO DAILY #30 tabs 03/26/24 triamcinolone acetonide 0.1 % 1 applic topical DAILY #80 grams 03/26/24 topical cream lisinopril 5 mg tablet 5 mg PO DAILY 04/28/24 acetaminophen 325 mg capsule 325 mg PO Q6H PRN 03/22/25 Current Visit Medications: Current Medications Generic Name Dose Route Start Last Admin Trade Name Freq PRN Reason Stop Dose Admin Ringer's Solution 1,000 mls @ 80 mls/hr 03/22/25 06:00 03/22/25 06:40 IV 03/22/25 23:59 80 mls/hr INFUSION CHARLEY Administration Cefazolin Sodium/Dextrose 2 gm in 50 mls @ 100 mls/hr 03/22/25 06:00 Ancef Duplex IVPB 03/22/25 23:59 PREOP CHARLEY IV Miscellaneous Supplies 1 each 03/22/25 06:00 Iv Access IV 03/22/25 23:59 DIRECTED CHARLEY Sodium Chloride 0 ml 03/22/25 06:00 Normal Saline Flush 10 Ml Syr IV 03/22/25 23:59 PRN PRN Sodium Chloride 0 ml 03/22/25 06:00 Normal Saline 10 Ml Vial IJ 03/22/25 23:59 DIRECTED PRN Sterile Water 0 ml 03/22/25 06:00 Water,Injection,Sterile 10 Ml Vial IJ 03/22/25 23:59 DIRECTED PRN PFSH Active Problems Active Problems: Problem Status Onset Code Sensorineural hearing loss, bilateral Acute H90.3 Prostate cancer Chronic C61 Near syncope Resolved R55 Aortic stenosis Chronic I35.0 Anemia Chronic D64.9 Acute renal failure Acute N17.9 Elevated PSA Acute R97.20 Sensorineural hearing loss Acute H90.5 Abnormal auditory perception of both ears Acute H93.293 Maxillary sinusitis, chronic Acute J32.0 Cyst of ear canal Acute ~09/2023 Q18.1 Hypertension Chronic I10 Carotid stenosis, right Chronic 04/27/18 I65.21 Medical History Medical History Orthostatic hypotension Per pt. 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) 2018-per dtr no residual effects Hyperlipidemia Pre-diabetes Chronic frontal sinusitis Surgical History Surgical History Inguinal hernia of left side without obstruction or gangrene History of tonsillectomy Tobacco Smoking/Tobacco Use Status: Never Passive smoking exposure: Yes Alcohol Alcohol Intake: current Alcohol intake frequency: holidays/special occasions only Alcohol type: beer Substance Use Substance use: Never Substance use type: does not use Vital Signs and Lab Results Vital Signs Most Recent Vital Signs in EMR: Most Recent Vital Signs Temp Pulse Resp BP Pulse Ox 36.6 C 53 L 16 175/75 H 98 03/22/25 06:16 03/22/25 06:16 03/22/25 06:16 03/22/25 06:16 03/22/25 06:16 Lab Results Complete Blood Count: WBC, (4.4-10.8) 10.57 10^3/uL 02/27/25, 10:15 RBC, (4.36-5.78) 3.86 10^6/uL L 02/27/25, 10:15 Hgb, (13.5-17.5) 10.9 g/dL L 02/27/25, 10:15 Hct, (40.0-50.0) 34.1 % L 02/27/25, 10:15 Plt Count, (130-400) 142 10^3/uL 02/27/25, 10:15 Complete Metabolic Panel: Sodium, (136-145) 139 mmol/L 02/27/25, 10:15 Potassium, (3.5-5.1) 4.7 mmol/L 02/27/25, 10:15 Chloride, (98-107) 103 mmol/L 02/27/25, 10:15 Carbon Dioxide, (21.0-32.0) 27.6 mmol/L 02/27/25, 10:15 BUN, (7-18) 51 mg/dL H 02/27/25, 10:15 Creatinine, (0.70-1.30) 2.9 mg/dL H 02/27/25, 10:15 Est GFR (CKD-EPI 2020), (mL/min/1.73m2) 20.55 02/27/25, 10:15 Calcium, (8.5-10.1) 8.4 mg/dL L 02/27/25, 10:15 Albumin, (3.4-5.0) 3.3 g/dL L 02/27/25, 10:15 Glucose, (74-106) 101 mg/dL 02/27/25, 10:15 Liver Function Panel: ALT, (16-63) 23 U/L 02/27/25, 10:15 AST, (15-37) 18 U/L 02/27/25, 10:15 Imaging and Studies Imaging and Studies Study information below may be from another EMR and interpreted by another provider. Please see original notes in EMR for more complete details. EKG Summary: 03/20: sinus kiran. Echocardiogram Summary: 10/12/2023: EF 62%, aortic valve is trileaflet and moderately calcified. There is moderate aortic stenosis: valve area 1.1 cm2, peak pressure gradient 38.3mmHg, mean pressure gradient 23.1 mmHg. There are no other remarkable cardiac valve findings. Carotid Artery Summary:: 03/28/2018: IMPRESSION: No significant internal carotid artery stenosis. Anesthesia Assessment and Plan Anesthesia History Personal History: Delayed Emergence Family History: No Family History of Anesthesia Complications Exercise Tolerance Exercise Tolerance: Metabolic Equivalents>4 Pertinent Negatives Pertinent Negatives: No Major Cardiovascular Symptoms or Complaints and No Major Pulmonary Symptoms or Complaints Cardiac & Pulmonary Exam Cardiac Exam: Normal S1/S2 Heart Sounds Pulmonary Exam: Clear Bilateral Breath Sounds Implantable Cardiac Device Does patient have a Pacemaker or an ICD?: No Airway Exam Known Difficult Airway: No Mallampati Class: 2 Mouth Opening: Normal (> 3cm) Thyromental Distance: Greater than 3 cm Neck Range of Motion: Full ROM Neck Circumference: Normal Teeth Condition: Normal Dentition ASA Classification ASA Score: ASA 3 Emergency Case?: No NPO Status NPO Status: NPO Clears >2 hours, Solids >8 hours Anesthesia Plan Resuscitation Status: Full Code Anesthesia Technique: General Anesthesia Airway Planned: Natural Airway Monitors Used: Standard Monitors Preoperative Comments:: Next follow up Echo due in March per patient. Reports no significant physical changes since last screening. Appropriately NPO.
[2025-03-22 07:21] VITALS: BMI 26.6
[2025-03-22] MEDS: ceFAZolin 2 GM/50 ML BAG IVPB (07:39)
[2025-03-22] MEDS: Lidocaine 2% Jelly 11 ML SYR (07:50)
[2025-03-22] MEDS: Omnipaque 300 MG/ML 50 ML BTL (07:56)
--- NOTE | 2025-03-22 08:02 | W.PM.DSUDISC ---
Date of service: 03/22/25 Discharge Plan Disposition Patient Disposition: Home Condition: Stable Discharge Details Reason For Visit: stent change Attending Provider: Elijah Jasmine Primary Care Provider: Alexandro Oreilly Home Meds and New Rx's Prescriptions: No Action triamcinolone acetonide 0.1 % cream 1 applic topical DAILY Qty: 80 0RF atorvastatin 80 mg tablet 80 mg PO DAILY Qty: 30 0RF clopidogrel [Plavix] 75 MG tablet 75 mg PO DAILY Qty: 30 0RF lisinopril 5 mg tablet 5 mg PO DAILY acetaminophen 325 mg capsule 325 mg PO Q6H PRN Discharge Instructions Additional Instructions: OK to restart Plavix 03/23 my office will contact you to make arrangements for your next stent change Activity:: Activity as Tolerated Shower/Bathe:: 24 hours Diet:: As Tolerated Discharge Orders Discharge Orders: Discharge Order (Routine); Ordered 03/22/25 Ordered By: Elijah Jasmine DS: Diagnosis Discharge Diagnosis (1) Prostate cancer: Status: Chronic (2) Hydronephrosis:
[2025-03-22 08:05] VITALS: BP 136/106; PULSE 54; RESP 16; TEMP 36.5; O2SAT 97
--- NOTE | 2025-03-22 08:05 | ROE_ITS ---
Operative Note Operative Note PRE-OP DIAGNOSIS: Hydronephrosis Metastatic prostate cancer PROCEDURE: cystoscopy, change right ureteral stent SURGEON: Elijah Jasmine ANESTHESIA TYPE: Local By Surgeon and General:No Airway Refer to Anesthesia Record ESTIMATED BLOOD LOSS: 5 PATHOLOGY: none sent COMPLICATIONS: None Patient was transported to: same day Patient's condition: stable Implants: 7 vietnamese by 22 to 30 cm right ureteral stent Indications: This is an 85-year-old gentleman who has a history of metastatic prostate cancer which is causing bilateral hydronephrosis. I have been able to do place a right ureteral stent but not a left ureteral stent. He comes in to have the right stent changed every 3 to 6 months. Findings: Indwelling stent was not encrusted Right hydronephrosis Procedure Description: The patient was given IV antibiotics and brought to the operating room on 03/22/2025. He was given general anesthesia and placed in the dorsal lithotomy position. His genitalia was prepped and draped. 2% Xylocaine jelly was then instilled into the urethra. The 22 Icelandic rigid cystoscope was passed through the urethra into the bladder. The urethra and bladder were inspected with a 30 degree lens. The pendulous, bulbar and membranous urethra appeared normal with no strictures. The prostatic urethra showed some lateral lobe enlargement but no significant median lobe. The stent could be seen protruding from the right ureteral orifice. The stent was grasped with alligator forceps and brought to the level of the urethral meatus. A guidewire was passed through the lumen of the stent and the stent was removed leaving the wire in place. I then passed a 5 Icelandic access catheter over the wire and advanced the catheter until it was seen in the proximal ureter. The wire was removed and a retrograde pyelogram was obtained by injecting Omnipaque through the access catheter under fluoroscopic guidance. The retrograde pyelogram outlined a distended collecting system on the right. I replaced the wire and removed the access catheter. I then passed a 7 Icelandic variable length stent over the wire. The proximal end of the stent was seen curled in the renal pelvis and the distal end curled within the bladder. The positioning of the stent was confirmed fluoroscopically. The patient tolerated this procedure well with no complications. He was taken back to day surgery in stable condition. Date of Procedure: 03/22/25
--- NOTE | 2025-03-22 08:05 | DI.RAD_ITS ---
Exam(s) XR RETROGRADE IN OR EXAM: XR RETROGRADE IN OR CLINICAL HISTORY: Hydronephrosis Left. TECHNIQUE: Fluoroscopy was provided for the referring physician for guidance with performing retrograde procedure. COMPARISON: No exams were available for comparison FINDINGS: Please see procedure note for details. Fluoro time: 29 seconds RADIATION DOSE DELIVERED: yonatan Rosales=7.1 mGy
[2025-03-22] MEDS: Phenazopyridine 200 MG TAB PO (08:19)
[2025-03-22 08:36] VITALS: BP 182/73; PULSE 53; RESP 17; TEMP 36.5; O2SAT 100
--- NOTE | 2025-03-22 09:33 | W.ANESPOSTOP ---
Postoperative Evaluation Date, Time and Location Date Performed: 03/22/25 Time Performed: 08:46 Patient Location: Day Surgery Unit Vital Signs Most Recent Imported Vital Signs: Most Recent Vital Signs Temp Pulse Resp BP Pulse Ox 36.5 C 53 L 17 182/73 H 100 03/22/25 08:36 03/22/25 08:36 03/22/25 08:36 03/22/25 08:36 03/22/25 08:36 Pain Score Most Recent Pain Score: Most Recent Pain Score Pain Level 0 03/22/25 08:36 Assessment Mental Status: Awake (Alert & Oriented to Patient Baseline) Airway and Respiratory Function: Patent airway with normal (patient baseline) respiratory exam Cardiovascular Function: Hemodynamically Stable (Known to be hypertensive. ) Hydration Status: Adequately Hydrated Nausea & Vomiting: No Nausea or Vomiting Pain: Pt. Denies Any Pain Peripheral Nerve Block: Patient did not receive a nerve block
== END 2025-03-22 09:16 | disposition home or self-care (01) ==
PROVIDERS: PCP Family Medicine; Visit Provider Urology
PROC: (CPT 74450; principal; 2025-03-22 07:30)
DX: N13.39 Other hydronephrosis (principal); C61 Malignant neoplasm of prostate
CPT/HCPCS: 52332; 74420; J0690; J1100; J2003; J2371; J2405; J2704; J3010; Q9967

== ENCOUNTER 2025-05-07 23:39 | Emergency (ER) | payer MEDICARE, SELFPAY ==
--- NOTE | 2025-05-07 23:42 | ED.GENADUL_ITS ---
Discharge Plan Disposition Patient Disposition: Home Condition: Good Discharge Details Clinical Impression: Spasm of muscle of lower back Primary Care Provider: Alexandro Oreilly ED Provider: Collin Cuello Meds and New Rx's Prescriptions: New methocarbamol 500 mg tablet 500 - 1,000 mg PO TID PRN (Reason: muscle spasm) Qty: 20 0RF lidocaine 5 % adhesive patch,medicated 1 patch topical DAILY Qty: 15 0RF Rx Instructions: leave on most painful area for up to 12 hrs Continued triamcinolone acetonide 0.1 % cream 1 applic topical DAILY Qty: 80 0RF atorvastatin 80 mg tablet 80 mg PO DAILY Qty: 30 0RF clopidogrel [Plavix] 75 MG tablet 75 mg PO DAILY Qty: 30 0RF lisinopril 5 mg tablet 5 mg PO DAILY acetaminophen 325 mg capsule 325 mg PO Q6H PRN Discharge Instructions Instructions: Muscle Spasm ED Additional Instructions: You were seen for low back pain that seems to be related to muscle spasm. Will try methocarbamol as a muscle relaxer and lidocaine patch to help with pain. You may use heat or ice as well to help with pain. Follow-up with primary care or hospice physician if not improving over the next couple of days. Return to ED for significantly worsening pain especially if it is constant, abdominal pain, fever, neurologic change, other concerns. HPI General Mode of arrival: ambulatory . Date/Time Provider Initiated Documentation: 05/07/25 23:42 . Limitations to Documentation: no limitations . Information obtained by: patient, RN notes reviewed and old records reviewed . HPI Narrative: Patient presents to the ED with lower back pain which has been present for a couple of days and occurred the day after he had done a bunch of yard work. Pain is severe with movement especially twisting of the torso and sometimes taking steps. Pain is tolerable when he is resting and he has been able to sleep. Denies any abdominal pain, vomiting, fever, urinary symptoms. Is followed by neurology here and has a right ureteral stent. He has metastatic prostate cancer which is not being treated otherwise and he is in hospice care. He thinks this is probably all related to back spasm but became a little concerned tonight thinking it might be related to his kidneys. Related Data Home Medications ?Medication ?Instructions ?Recorded ?Confirmed atorvastatin 80 mg tablet 80 mg PO DAILY #30 tabs 02/2705/07/25 clopidogrel 75 mg tablet (Plavix) 75 mg PO DAILY #30 t abs 03/26/24 05/07/25 triamcinolone acetonide 0.1 % 1 applic topical DAILY # 80 grams 03/26/24 05/07/25 topical cream lisinopril 5 mg tablet 5 mg PO DAILY 04/28/2405/07 acetaminophen 325 mg capsule 325 mg PO Q6H PRN 5 05/07/25 lidocaine 5 % topical patch 1 patch topical DAILY #15 ea 05/08/25 methocarbamol 500 mg tablet 500 - 1,000 mg (1 - 2 x 50 0 mg) PO 05/08/25 TID PRN muscle spasm #20 tabs Previous Rx's ?Medication ?Instructions ?Recorded atorvastatin 80 mg tablet 80 mg PO DAILY #30 tabs 02/27 clopidogrel 75 mg tablet (Plavix) 75 mg PO DAILY #30 t abs 03/26/24 triamcinolone acetonide 0.1 % 1 applic topical DAILY # 80 grams 03/26/24 topical cream lidocaine 5 % topical patch 1 patch topical DAILY #15 ea 05/08/25 methocarbamol 500 mg tablet 500 - 1,000 mg (1 - 2 x 50 0 mg) PO 05/08/25 TID PRN muscle spasm #20 tabs Allergies Allergy/AdvReac Type Severity Reaction Status Date / Time No Known Allergies Allergy Verified 05/07/25 23:52 General ARELIS: 3 Exam Narrative Exam Narrative: Const: WDWN elderly male in NAD. VS per triage. HEENT: NC/AT. Normal facial exam. Neck: Supple. Trachea midline. Lungs: Normal respiratory effort. GI: Soft/ND/NT. Back: No CVAT. Mild tenderness across the lower back. No midline tenderness. Increased pain with certain motions and limited ROM. Neuro: A+O x 3. Normal speech, mentation, gait. Cranial nerves II - XII grossly intact. No gross motor or sensory deficit. Medical Decision Making Patient presenting to ED with low back pain that began a day after yard work and is significantly worse with movement. Does have a history of metastatic prostate cancer which is not being treated. He is followed by hospice out of [facility]. He otherwise feels baseline. He has no midline spinal tenderness. No CVAT. Pain definitely appears related to muscle spasm with significantly increased pain with certain movements or stepping wrong. Some mild tenderness across the lower back. I do not suspect that this is related to his cancer per se and unlikely to be related to stent problem given lack of fever, urination problems, no CVAT. At this time I think he is reasonable to treat patient with this relaxer and lidocaine patches for comfort and defer extensive workup to include labs and imaging given previous wishes, current physical findings, lack of other symptomatology. Patient is comfortable with this plan.. Lidocaine patch was placed here. Methocarbamol provided for him to take when he returns home. Prescription for both sent to pharmacy to be picked up in the morning. Referred back to PCP/hospice. Return precautions provided. Medical Records Medical records reviewed: Yes I reviewed the patient's medical records. Medical records narrative: [facility] PFSH All Active Problems Spasm of muscle of lower back (Acute) DNR (do not resuscitate) (Acute) Attempting to get copy of [facility] from [facility] Advanced care planning/counseling discussion (Acute) Hydronephrosis (Acute) Stented by Dr. 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) 2018-per dtr no residual effects Hyperlipidemia Pre-diabetes Chronic frontal sinusitis Surgical History Inguinal hernia of left side without obstruction or gangrene History of tonsillectomy Family History Father Alcohol abuse Stroke Sister Blind Social History Smoking/Tobacco Use Status: Never Smoking risk assessment performed?: Yes Alcohol Intake: current Alcohol Intake frequency: holidays/special occasions only Alcohol type: beer Drug use: Never Substance use type: does not use Household members: none Housing: house Number of Children: 2 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
[2025-05-07 23:43] VITALS: BP 162/73; PULSE 61; RESP 18; TEMP 36.9; O2SAT 99
[2025-05-08] MEDS: Lidocaine 5% Patch 1 PATCH TP (00:15)
[2025-05-08] MEDS: Methocarbamol 500 MG TAB 1000 MG PO (00:15)
== END 2025-05-08 00:22 | disposition home or self-care (01) ==
PROVIDERS: Emergency Provider Emergency Medicine; PCP Family Medicine
DX: M62.830 Muscle spasm of back (principal)
CPT/HCPCS: 99283 ×2

== ENCOUNTER 2025-09-03 08:43 | Day surgery (SDC) | payer MEDICARE, SELFPAY ==
[2025-09-03] VITALS (18 sets, daily range): BP systolic 128–167; BP diastolic 54–88; PULSE 60–76; RESP 13–22; TEMP 36.3–36.6; O2SAT 91–96; BMI 25.9
[2025-09-03] MEDS: Lactated Ringers 1,000 ML 80 ML IV (09:18)
--- NOTE | 2025-09-03 10:11 | W.ANESPRE ---
General Info Date of Service Date Performed: 09/03/25 Height: 5 ft 10 in Weight: 82 kg Body Mass Index (BMI): 25.9 Surgical Procedure: Operation Date: 09/03/25 10:25 Proposed Procedure Side Surgeon p Cystoscopy with Stent Change Right Elijah Jasmine MD Meds Allergies and Home Medications Allergies Allergy/AdvReac Type Severity Reaction Status Date / Time No Known Allergies Allergy Verified 09/03/25 08:51 Home Medication ?Medication ?Instructions ?Recorded atorvastatin 80 mg tablet 80 mg PO DAILY #30 tabs 03/26/24 clopidogrel 75 mg tablet (Plavix) 75 mg PO DAILY #30 tabs 03/26/24 triamcinolone acetonide 0.1 % 1 applic topical DAILY #80 grams 03/26/24 topical cream lisinopril 5 mg tablet 5 mg PO DAILY 04/28/24 acetaminophen 325 mg capsule 325 mg PO Q6H PRN 03/22/25 lidocaine 5 % topical patch 1 patch topical DAILY #15 ea 05/08/25 methocarbamol 500 mg tablet 500 - 1,000 mg (1 - 2 x 500 mg) PO 05/08/25 Held on 09/03/25. TID PRN muscle spasm #20 tabs Instructions: not taking per PT amoxicillin 875 mg-potassium 1 tab PO BID 08/29/25 clavulanate 125 mg tablet Current Visit Medications: Current Medications Generic Name Dose Route Start Last Admin Trade Name Freq PRN Reason Stop Dose Admin Ringer's Solution 1,000 mls @ 80 mls/hr 09/03/25 06:00 09/03/25 09:18 IV 09/30/25 23:59 80 mls/hr INFUSION CHARLEY Administration Cefazolin Sodium/Dextrose 2 gm in 50 mls @ 100 mls/hr 09/03/25 06:00 Ancef Duplex IVPB 09/30/25 23:59 PREOP CHARLEY Sodium Chloride 0 ml 09/03/25 06:00 Normal Saline Flush 10 Ml Syr IV 09/30/25 23:59 PRN PRN Sodium Chloride 0 ml 09/03/25 06:00 Normal Saline 10 Ml Vial IJ 09/30/25 23:59 DIRECTED PRN Sterile Water 0 ml 09/03/25 06:00 Water,Injection,Sterile 10 Ml Vial IJ 09/30/25 23:59 DIRECTED PRN PFSH Active Problems Active Problems: Problem Status Onset Code DNR (do not resuscitate) Acute Z66 Advanced care planning/counseling discussion Acute Z71.89 CKD (chronic kidney disease) stage 4, GFR 15-29 ml/min Acute N18.4 Prostate cancer metastatic to intraabdominal lymph node Acute C61, C77.2 Prostate cancer metastatic to bone Acute C61, C79.51 Sensorineural hearing loss, bilateral Acute H90.3 Prostate cancer Chronic C61 Near syncope Resolved R55 Aortic stenosis Chronic I35.0 Anemia Chronic D64.9 Acute renal failure Acute N17.9 Elevated PSA Acute R97.20 Hydronephrosis Acute N13.30 Sensorineural hearing loss Acute H90.5 Abnormal auditory perception of both ears Acute H93.293 Maxillary sinusitis, chronic Acute J32.0 Cyst of ear canal Acute ~09/2023 Q18.1 Hypertension Chronic I10 Carotid stenosis, right Chronic 04/27/18 I65.21 Medical History Medical History Hospice care patient Palliative care patient Acute on chronic renal failure Acute on chronic urinary retention Orthostatic hypotension Per pt. 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) 2018-per dtr no residual deficits Hyperlipidemia Pre-diabetes Chronic frontal sinusitis Surgical History Surgical History Inguinal hernia of left side without obstruction or gangrene History of tonsillectomy Tobacco Smoking/Tobacco Use Status: Never Passive smoking exposure: Yes Alcohol Alcohol Intake: current Alcohol intake frequency: holidays/special occasions only Alcohol type: beer Substance Use Substance use: Never Substance use type: does not use Vital Signs and Lab Results Vital Signs Most Recent Vital Signs in EMR: Most Recent Vital Signs Temp Pulse Resp BP Pulse Ox 36.3 C L 60 16 165/54 H 91 L 09/03/25 09:05 09/03/25 09:05 09/03/25 09:05 09/03/25 09:05 09/03/25 09:05 Imaging and Studies Imaging and Studies Study information below may be from another EMR and interpreted by another provider. Please see original notes in EMR for more complete details. EKG Summary: 03/20: sinus kiran. Echocardiogram Summary: 10/12/2023: EF 62%, aortic valve is trileaflet and moderately calcified. There is moderate aortic stenosis: valve area 1.1 cm2, peak pressure gradient 38.3mmHg, mean pressure gradient 23.1 mmHg. There are no other remarkable cardiac valve findings. Carotid Artery Summary:: 03/28/2018: IMPRESSION: No significant internal carotid artery stenosis. Other Study Summary:: CT 06/2020:IMPRESSION: 1. Normal CTA examination of the [place]. 2. Unremarkable noncontrast CT Head. 3. Mild plaque in the common carotid bulbs and proximal internal and carotid arteries. No significant stenosis. Anesthesia Assessment and Plan Anesthesia History Personal History: Delayed Emergence Family History: No Family History of Anesthesia Complications Exercise Tolerance Exercise Tolerance: Metabolic Equivalents<4 Pertinent Negatives Pertinent Negatives: No Symptoms of GERD Cardiac & Pulmonary Exam Cardiac Exam: Heart Murmur Present Pulmonary Exam: Clear Bilateral Breath Sounds Implantable Cardiac Device Does patient have a Pacemaker or an ICD?: No Airway Exam Known Difficult Airway: No Mallampati Class: 2 Mouth Opening: Normal (> 3cm) Thyromental Distance: Greater than 3 cm Neck Range of Motion: Full ROM Neck Circumference: Normal Teeth Condition: Normal Dentition ASA Classification ASA Score: ASA 3 Emergency Case?: No NPO Status NPO Status: NPO Clears >2 hours, Solids >8 hours Anesthesia Plan Resuscitation Status: DNR Fully Suspended During Perioperative Period (requests use clinical judgement.) Anesthesia Technique: General Anesthesia Airway Planned: Natural Airway Monitors Used: Standard Monitors Preoperative Comments:: Pt. saw cardiology in March 2025, no echo repeated. Pt. is in hospice service due to metastatic cancer. We discussed nearly severe and implications to include ID/. he understands risk and would lie to proceed and I agree. Also discussed DNR status and he initially wanted to maintain this but after discussion decided he would suspend DNR for procedure and allow resuscitation efforts with us using clinical judgment for a short time. He is very alert, appropriate and we had a great conversation about these things.
--- NOTE | 2025-09-03 11:06 | W.PM.HP.N ---
Date of service: 09/03/25 Time of Service: 11:06 Assessment and Plan Assessment and plan (1) Hydronephrosis: Status: Acute Assessment and plan: We will change his right ureteral stent. History of Present Illness History of Present Illness Chief Complaint: hydronephrosis Narrative: This is an 85-year-old gentleman who was diagnosed as having metastatic adenocarcinoma of the prostate. He has bilateral ureteral obstructions related to his tumor. I was only able to get a retrograde stent in the right side. The left side remains hydronephrotic. He comes in to have his stent changed. He has no flank pain or gross hematuria. Review of Systems Narrative: No fevers or chills Decreased hearing acuity. No vision change or dysphasia No diabetes or thyroid dysfunction No shortness of breath, cough or hemoptysis No chest pain or palpitations No nausea, vomiting, hepatitis, ulcers, jaundice No seizures, strokes or peripheral neuropathy Recent shingles. No bleeding disorders No gout PFSH All Active Problems DNR (do not resuscitate) (Acute) Attempting to get copy of [facility] from [facility] Advanced care planning/counseling discussion (Acute) CKD (chronic kidney disease) stage 4, GFR 15-29 ml/min (Acute) Prostate cancer metastatic to intraabdominal lymph node (Acute) Prostate cancer metastatic to bone (Acute) Sensorineural hearing loss, bilateral (Acute) Prostate cancer (Chronic) Aortic stenosis (Chronic) Anemia (Chronic) Acute renal failure (Acute) Elevated PSA (Acute) Hydronephrosis (Acute) Stented by Dr. Jasmine, changed Q 3 month Sensorineural hearing loss (Acute) Abnormal auditory perception of both ears (Acute) Maxillary sinusitis, chronic (Acute) Cyst of ear canal (Acute ~09/2023) Hypertension (Chronic) Carotid stenosis, right (Chronic 04/27/18) Medical History Hospice care patient Palliative care patient Acute on chronic renal failure Acute on chronic urinary retention Orthostatic hypotension Per pt. 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) 2018-per dtr no residual deficits Hyperlipidemia Pre-diabetes Chronic frontal sinusitis Surgical History Inguinal hernia of left side without obstruction or gangrene History of tonsillectomy Family History Father Alcohol abuse Stroke Sister Blind Social History Smoking/Tobacco Use Status: Never Smoking risk assessment performed?: Yes Alcohol Intake: current Alcohol Intake frequency: holidays/special occasions only Alcohol type: beer Drug use: Never Substance use type: does not use Household members: none Housing: house Number of Children: 2 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 Meds Allergies and Home Medications Allergies Allergy/AdvReac Type Severity Reaction Status Date / Time No Known Allergies Allergy Verified 09/03/25 08:51 Home Medications ?Medication ?Instructions ?Recorded ?Confirmed ?Type atorvastatin 80 mg tablet 80 mg PO DAILY #30 tabs 03/26/24 09/03/25 Rx clopidogrel 75 mg tablet (Plavix) 75 mg PO DAILY #30 tabs 03/26/24 09/03/25 Rx triamcinolone acetonide 0.1 % 1 applic topical DAILY #80 grams 03/26/24 09/03/25 Rx topical cream lisinopril 5 mg tablet 5 mg PO DAILY 04/28/24 09/03/25 History acetaminophen 325 mg capsule 325 mg PO Q6H PRN 03/22/25 09/03/25 History lidocaine 5 % topical patch 1 patch topical DAILY #15 ea 05/08/25 09/03/25 Rx methocarbamol 500 mg tablet 500 - 1,000 mg (1 - 2 x 500 mg) PO 05/08/25 09/03/25 Rx Held on 09/03/25. TID PRN muscle spasm #20 tabs Instructions: not taking per PT amoxicillin 875 mg-potassium 1 tab PO BID 08/29/25 09/03/25 History clavulanate 125 mg tablet Exam Const General: cooperative Neck Neck: supple Resp Effort & Inspection: normal respiratory effort Auscultation: clear to auscultation bilaterally Cardio Rate: regular rate Rhythm: regular rhythm GI Palpation: soft and no masses Neuro General: patient alert, patient awake and patient oriented x3 Results Last Vital Signs Temp 36.3 C L 09/03/25 09:05 Pulse 60 09/03/25 09:05 Resp 16 09/03/25 09:05 BP 165/54 H 09/03/25 09:05 Pulse Ox 91 L 09/03/25 09:05 VTE Prohylaxis Risk Level: Moderate/High Risk Contraindications: None Prophylaxis: Mechanical Time Spent Time spent with Patient: <40 minutes Time was spent: other
[2025-09-03] MEDS: ceFAZolin 2 GM/50 ML BAG IVPB (11:47)
[2025-09-03] MEDS: Lidocaine 2% Jelly 11 ML SYR (12:07)
--- NOTE | 2025-09-03 12:30 | DI.RAD_ITS ---
Exam(s) XR RETROGRADE IN OR EXAM: XR RETROGRADE IN OR CLINICAL HISTORY: Right ureteral stent change. TECHNIQUE: Fluoroscopy was provided for the referring physician for guidance with performing retrograde procedure. COMPARISON: XA XR RETROGRADE IN OR from 03/22/2025 FINDINGS: Please see procedure note for details. Fluoro time: 41.7 seconds RADIATION DOSE DELIVERED: yonatan Rosales=16.6 mGy
--- NOTE | 2025-09-03 12:30 | W.PM.DSUDISC ---
Date of service: 09/03/25 Discharge Plan Disposition Patient Disposition: Home Condition: Stable Discharge Details Reason For Visit: cystoscopy with stent change Attending Provider: Elijah Jasmine Primary Care Provider: Alexandro Oreilly Home Meds and New Rx's Prescriptions: No Action triamcinolone acetonide 0.1 % cream 1 applic topical DAILY Qty: 80 0RF atorvastatin 80 mg tablet 80 mg PO DAILY Qty: 30 0RF clopidogrel [Plavix] 75 MG tablet 75 mg PO DAILY Qty: 30 0RF lisinopril 5 mg tablet 5 mg PO DAILY acetaminophen 325 mg capsule 325 mg PO Q6H PRN amoxicillin-pot clavulanate 875-125 mg tablet 1 tab PO BID methocarbamol 500 mg tablet 500 - 1,000 mg PO TID PRN (Reason: muscle spasm) Qty: 20 0RF lidocaine 5 % adhesive patch,medicated 1 patch topical DAILY Qty: 15 0RF Rx Instructions: leave on most painful area for up to 12 hrs Discharge Instructions Additional Instructions: you may restsrt your plavix once there is no blood visible in the urine we will plan to change the stent again in 3 to 6 months Stand Alone Forms: Portal Information Activity:: Activity as Tolerated Shower/Bathe:: 24 hours Diet:: As Tolerated Discharge Orders Discharge Orders: Discharge Order (Routine); Ordered 09/03/25 Ordered By: Elijah Jasmine DS: Diagnosis Discharge Diagnosis (1) Hydronephrosis: Status: Acute
--- NOTE | 2025-09-03 12:31 | ROE_ITS ---
Operative Note Operative Note PRE-OP DIAGNOSIS: hydronephrosis PROCEDURE: cystoscopy with removal of right ureteral stent, right retrograde pyelogram, replace right ureteral stent SURGEON: Elijah Jasmine ANESTHESIA TYPE: Local By Surgeon and General:No Airway Refer to Anesthesia Record ESTIMATED BLOOD LOSS: 5 PATHOLOGY: none sent COMPLICATIONS: None Patient was transported to: PACU Patient's condition: stable Implants: 6 Macanese by 22 to 30 cm right ureteral stent Indications: This is an 85-year-old gentleman who is known to have metastatic prostate cancer. The cancer is obstructive both ureters but I have only been able to place a retrograde stent in the right ureter. The left kidney remains hydronephrotic. He has elected not to have a nephrostomy tube placed. He comes in for routine stent change. Findings: Distal right ureteral narrowing Procedure Description: The patient is brought to the operating room on 09/03/2025. He is given preprocedural antibiotics. After successful induction of general anesthesia, he was placed in the dorsal lithotomy position. His genitalia was prepped and draped. 2% Xylocaine jelly was instilled into the urethra to act as a local anesthetic. A 22 Macanese rigid cystoscope was passed through the urethra into the bladder. The bladder was inspected with a 30 degree lens. The right sided stent was visualized and was grasped with alligator forceps. The stent was then brought to the level of the urethral meatus. A guidewire was advanced through the lumen of the stent and the stent was removed. I then passed a 5 Macanese access catheter over the wire and removed the wire. I injected Omnipaque through the access catheter and outlined the calyces and ureter. I reinserted the guidewire and removed the access catheter. We then passed a 6 [place]anese variable length stent over the wire. The stent was positioned with the proximal end curled in one of the upper pole calyces and the distal end curled within the bladder. The positioning of the stent was confirmed both fluoroscopically and cystoscopically. The patient tolerated this procedure well with no complications. He was taken to the recovery room in stable condition. Date of Procedure: 09/03/25
--- NOTE | 2025-09-03 13:00 | W.ANESPOSTOP ---
Postoperative Evaluation Date, Time and Location Date Performed: 09/03/25 Time Performed: 13:00 Patient Location: PACU Vital Signs Most Recent Imported Vital Signs: Most Recent Vital Signs Temp Pulse Resp BP Pulse Ox 36.6 C 64 13 167/76 H 95 09/03/25 12:52 09/03/25 12:55 09/03/25 12:55 09/03/25 12:52 09/03/25 12:55 Pain Score Most Recent Pain Score: Most Recent Pain Score Pain Level 0 09/03/25 12:59 Assessment Mental Status: Awake (Alert & Oriented to Patient Baseline) Airway and Respiratory Function: Patent airway with normal (patient baseline) respiratory exam (Normal breathing per patient) Cardiovascular Function: Hemodynamically Stable Hydration Status: Adequately Hydrated Nausea & Vomiting: No Nausea or Vomiting Pain: Pt. Denies Any Pain Peripheral Nerve Block: Patient did not receive a nerve block
== END 2025-09-03 14:20 | disposition home or self-care (01) ==
PROVIDERS: PCP Family Medicine; Visit Provider Urology
PROC: (CPT 52332; principal; 2025-09-03 10:15)
DX: N13.1 Hydronephrosis with ureteral stricture, not elsewhere classified (principal); C61 Malignant neoplasm of prostate; I12.9 Hypertensive chronic kidney disease with stage 1 through stage 4 chronic kidney disease, or unspecified chronic kidney disease; N18.4 Chronic kidney disease, stage 4 (severe); E78.5 Hyperlipidemia, unspecified; R73.03 Prediabetes; C79.9 Secondary malignant neoplasm of unspecified site
CPT/HCPCS: 52332; 74420; J0690; J1100; J2405; J2704

== ENCOUNTER 2025-09-04 15:19 | Outpatient (REF) | payer MEDICARE, SELFPAY ==
[2025-09-04 14:43] LABS: Abs Immature Grans 0.05 10^3/uL (0.0-0.06); HCT 29.0 % (40.0-50.0); HGB 9.3 g/dL (13.5-17.5); Immature Grans % 0.4 %; MCH 28.5 pg (27.0-33.0); MCHC 32.1 % (32.0-36.0); MCV 89 fL (80-95); MPV 11.6 fL (8.0-11.0); Platelet Count 185 10^3/uL (130-400); RBC 3.26 10^6/uL (4.36-5.78); RDW 16.1 % (11.8-14.1); RDW-SD 53.1 fL; WBC 13.53 10^3/uL (4.4-10.8)
[2025-09-04 15:06] LABS: ALT 14 U/L (10-49); AST 22 U/L (<34); Albumin 3.6 g/dL (3.2-5.0); Alkaline Phosphatase 85 U/L (46-116); Anion Gap 9.4 mmol/L (3-11); BUN 46 mg/dL (9-23); Bilirubin, Total 0.2 mg/dL (0.2-1.2); CO2 25.6 mmol/L (20.0-31.0); Calcium 8.6 mg/dL (8.3-10.6); Chloride 103 mmol/L (98-107); Glucose 113 mg/dL (74-106); Potassium 5.1 mmol/L (3.5-5.1); Sodium 138 mmol/L (136-145); Total Protein 6.4 g/dL (5.7-8.2)
== END 2025-09-04 15:20 | disposition home or self-care (01) ==
LOC: NCHCN 15:19
PROVIDERS: PCP Family Medicine; Visit Provider Family Medicine
DX: C61 Malignant neoplasm of prostate (principal)
CPT/HCPCS: 80053; 84154; 85025